=== PATIENT | male | born 1945 | race Two or more races ===

== ENCOUNTER 2017-12-24 11:32 | Inpatient (IN) | payer MEDICAID ==
[~2017-12-24] VITALS: Ht 167.6 cm; Wt 74.2 kg
[~2017-12-24 11:32] MED LIST: AMLO5TAB2; ASPI81CH43; GEMF600T3; HYDR25TA4; IBUP800T41; LISI10TA6; METF100097; OME20GT
[2017-12-24 12:58] LABS: Basophils # (auto) 0.1 uL; Basophils % (auto) 1.1 % (0.0-2.0); Eosinophils # (auto) 0.1 uL; Eosinophils % (auto) 1.7 % (0.0-7.0); Hematocrit 41.6 % (41.0-53.0); Hemoglobin 14.2 g/dL (13.5-17.5); Lymphocytes # (auto) 1.2 uL; Lymphocytes % (auto) 14.7 % (10.0-50.0); Mean Corpuscular Hemoglobin 29.7 pg (28.0-32.0); Mean Corpuscular Hgb Conc. 34.2 g/dL (32.0-36.0); Mean Corpuscular Volume 86.8 fL (80.0-100.0); Monocytes # (auto) 0.5 uL; Monocytes % (auto) 6.8 % (0.0-12.0); Neutrophils % (auto) 75.7 % (37.0-80.0); Nucleated Red Blood Cells % 0.1 %; Platelet Count (auto) 361 10^3/uL (140-450); Red Blood Cells 4.79 10^6/uL (4.5-5.90); Red Cell Distribution Width 13.1 % (11.8-14.3)
[2017-12-24 13:14] LABS: Albumin 4.1 g/dL (3.4-5.0); Calcium 9.7 mg/dL (8.5-10.1); Potassium 3.9 mmol/L (3.5-5.1)
[2017-12-24 13:16] LABS: Bilirubin, Total 0.4 mg/dL (0.2-1.0); Total Protein 8.7 g/dL (6.4-8.2)
[2017-12-24 13:24] LABS: BUN/Creatinine Ratio 28.2
[2017-12-24] MEDS ORDERED: SODIUM CHLORIDE 0.9% 1,000 ML IV ONE (15:16)
[2017-12-24 15:35] LABS: Urine Bacteria NONE SEEN /hpf (None Seen); Urine Blood Negative /uL (Negative); Urine Mucus FEW (None Seen); Urine Specific Gravity 1.025 (1.001-1.035); Urine WBC <1 /hpf (0 - 3)
[2017-12-24 15:48] LABS: INR 0.93 (0.9-1.15); Partial Thromboplastin Time 26.7 sec (22.64-33.71); Prothrombin Time 10.1 sec (9.37-12.3)
[2017-12-24 15:55] LABS: Magnesium 2.5 mg/dL (1.6-2.6)
[2017-12-24] MEDS ORDERED: ACETAMINOPHEN 325 MG TAB PO PRN (17:00)
[2017-12-24] MEDS ORDERED: DOCUSATE SOD 100 MG CAP PO PRN (17:00)
[2017-12-24] MEDS ORDERED: TEMAZEPAM 15 MG CAP PO PRN (17:00)
[2017-12-24] MEDS ORDERED: DEXTROSE (50%) 50ML SYRG IV PRN (17:00)
[2017-12-24] MEDS ORDERED: NITROGLYCERIN 0.4 MG SL TAB SL PRN (17:00)
[2017-12-24] MEDS ORDERED: MORPHINE SULFATE 4 MG/ML SYR/VIAL IV PRN ×2 (17:00)
[2017-12-24] MEDS ORDERED: ONDANSETRON HCL 4 MG/2 ML VIAL IV PRN (17:00)
[2017-12-24] MEDS ORDERED: HYDROcodone-ACET 5/325MG TAB PO PRN (17:00)
[2017-12-24] MEDS: InsuLIN REG 1unit/0.01ml Soln (100units/ml) SC SCH ×2 (17:28→22:30)
[2017-12-24] MEDS: ACCU-CHEK COMFORT CURVE STRIP VI SCH ×2 (17:28→22:30)
[2017-12-24] MEDS: metFORMIN HYDROCHLORIDE 500 MG TAB PO SCH (17:35)
[2017-12-24] MEDS: FAMOTIDINE 20 MG TAB PO SCH (17:35)
[2017-12-24 22:00] VITALS: BP 148/74
[2017-12-24] MEDS: SODIUM CHLOR 0.9% PF (SALINE LOCK) 10ML VIAL IV SCH (22:30)
[2017-12-25 05:00] VITALS: BP 141/76
[2017-12-25] MEDS: ACCU-CHEK COMFORT CURVE STRIP VI SCH ×4 (06:13→21:28)
[2017-12-25] MEDS: SODIUM CHLOR 0.9% PF (SALINE LOCK) 10ML VIAL IV SCH ×3 (06:13→21:29)
[2017-12-25] MEDS: InsuLIN REG 1unit/0.01ml Soln (100units/ml) SC SCH ×4 (06:13→21:28)
[2017-12-25 06:21] LABS: Albumin 3.6 g/dL (3.4-5.0); BUN/Creatinine Ratio 38.2; Bilirubin, Total 0.4 mg/dL (0.2-1.0); Calcium 9.2 mg/dL (8.5-10.1); Potassium 3.2 mmol/L (3.5-5.1); Total Protein 7.9 g/dL (6.4-8.2)
[2017-12-25 07:40] LABS: Basophils # (auto) 0 uL; Basophils % (auto) 0.5 % (0.0-2.0); Eosinophils # (auto) 0.1 uL; Eosinophils % (auto) 0.9 % (0.0-7.0); Hematocrit 39.6 % (41.0-53.0); Hemoglobin 13.5 g/dL (13.5-17.5); Lymphocytes # (auto) 1.4 uL; Lymphocytes % (auto) 13.7 % (10.0-50.0); Mean Corpuscular Hemoglobin 29.4 pg (28.0-32.0); Mean Corpuscular Hgb Conc. 34.2 g/dL (32.0-36.0); Monocytes # (auto) 0.5 uL; Monocytes % (auto) 5.2 % (0.0-12.0); Neutrophils % (auto) 79.7 % (37.0-80.0); Platelet Count (auto) 333 10^3/uL (140-450); Red Cell Distribution Width 13.4 % (11.8-14.3); White Blood Cell 10.1 10^3/uL (4.4-10.8)
[2017-12-25 09:00] VITALS: BP 132/85
[2017-12-25] MEDS ORDERED: IBUPROFEN 800 MG TAB PO PRN (10:00)
[2017-12-25] MEDS: LISINOPRIL 10 MG TAB PO SCH (10:11)
[2017-12-25] MEDS: PANTOPRAZOLE 40 MG TAB PO SCH (10:12)
[2017-12-25] MEDS: metFORMIN HYDROCHLORIDE 500 MG TAB PO SCH ×2 (10:13→17:45)
[2017-12-25] MEDS: MULTIPLE VITAMIN TAB PO SCH (10:13)
[2017-12-25] MEDS: amLODIPine BESYLATE 5 MG TAB PO SCH (10:13)
[2017-12-25] MEDS: ASPirin-EC 81 mg tab PO SCH (10:13)
[2017-12-25] MEDS: GEMFIBROZIL 600 MG TAB PO SCH (10:13)
[2017-12-25] MEDS: HCTZ 25 MG TAB PO SCH (10:14)
[2017-12-25] MEDS: FAMOTIDINE 20 MG TAB PO SCH (10:14)
[2017-12-25] MEDS ORDERED: SITA50TA28 PO (11:42)
[2017-12-25] MEDS ORDERED: GLIP-116 PO (11:54)
[2017-12-25] MEDS ORDERED: LOSA100T27 PO (11:54)
[2017-12-25] MEDS ORDERED: AGG25C PO (11:54)
[2017-12-25 16:34] VITALS: BP 128/69
[2017-12-25 20:00] VITALS: BP 116/71
[2017-12-25] MEDS: INSULIN LANTUS (GLARGINE) 1 /0.01ml (100units/ml) SC SCH (21:29)
[2017-12-25 22:00] VITALS: BP 116/71
[2017-12-26 05:00] VITALS: BP 120/69
[2017-12-26] MEDS: SODIUM CHLOR 0.9% PF (SALINE LOCK) 10ML VIAL IV SCH ×3 (05:40→21:20)
[2017-12-26] MEDS: ACCU-CHEK COMFORT CURVE STRIP VI SCH ×4 (05:40→21:20)
[2017-12-26] MEDS: InsuLIN REG 1unit/0.01ml Soln (100units/ml) SC SCH ×4 (05:48→21:21)
[2017-12-26] MEDS: INSULIN LANTUS (GLARGINE) 1 /0.01ml (100units/ml) SC SCH ×2 (06:22→21:21)
[2017-12-26 08:00] VITALS: BP 112/75
[2017-12-26] MEDS: metFORMIN HYDROCHLORIDE 500 MG TAB PO SCH ×2 (08:22→17:26)
[2017-12-26 09:00] VITALS: BP 112/75
[2017-12-26] MEDS: LISINOPRIL 10 MG TAB PO SCH (09:41)
[2017-12-26] MEDS: PANTOPRAZOLE 40 MG TAB PO SCH (09:41)
[2017-12-26] MEDS: GEMFIBROZIL 600 MG TAB PO SCH (09:41)
[2017-12-26] MEDS: MULTIPLE VITAMIN TAB PO SCH (09:42)
[2017-12-26] MEDS: amLODIPine BESYLATE 5 MG TAB PO SCH (09:42)
[2017-12-26] MEDS: HCTZ 25 MG TAB PO SCH (09:42)
[2017-12-26] MEDS: FAMOTIDINE 20 MG TAB PO SCH (09:43)
[2017-12-26] MEDS: ASPirin-EC 81 mg tab PO SCH (09:43)
[2017-12-26 13:00] VITALS: BP 137/75
[2017-12-26] MEDS ORDERED: INSULIN LANTUS (GLARGINE) 1 /0.01ml (100units/ml) SC ONE (13:30)
[2017-12-26 17:00] VITALS: BP 120/73
[2017-12-26 22:00] VITALS: BP 131/74
[2017-12-27 05:00] VITALS: BP 116/67
[2017-12-27] MEDS: ACCU-CHEK COMFORT CURVE STRIP VI SCH ×4 (06:01→21:31)
[2017-12-27] MEDS: INSULIN LANTUS (GLARGINE) 1 /0.01ml (100units/ml) SC SCH ×2 (06:01→21:40)
[2017-12-27] MEDS: SODIUM CHLOR 0.9% PF (SALINE LOCK) 10ML VIAL IV SCH ×3 (06:01→21:31)
[2017-12-27] MEDS: InsuLIN REG 1unit/0.01ml Soln (100units/ml) SC SCH ×4 (06:02→21:39)
[2017-12-27 06:03] LABS: Basophils # (auto) 0 uL; Basophils % (auto) 0.8 % (0.0-2.0); Eosinophils # (auto) 0.3 uL; Eosinophils % (auto) 5.3 % (0.0-7.0); Hematocrit 37.1 % (41.0-53.0); Hemoglobin 13.2 g/dL (13.5-17.5); Lymphocytes # (auto) 2.1 uL; Lymphocytes % (auto) 32.8 % (10.0-50.0); Mean Corpuscular Hemoglobin 30.4 pg (28.0-32.0); Mean Corpuscular Hgb Conc. 35.5 g/dL (32.0-36.0); Mean Corpuscular Volume 85.7 fL (80.0-100.0); Monocytes # (auto) 0.5 uL; Monocytes % (auto) 8.5 % (0.0-12.0); Neutrophils # (auto) 3.3 uL; Neutrophils % (auto) 52.6 % (37.0-80.0); Nucleated Red Blood Cells % 0.1 %; Platelet Count (auto) 296 10^3/uL (140-450); Red Blood Cells 4.33 10^6/uL (4.5-5.90); White Blood Cell 6.3 10^3/uL (4.4-10.8)
[2017-12-27 06:17] LABS: Albumin 3.3 g/dL (3.4-5.0); BUN/Creatinine Ratio 41.6; Bilirubin, Total 0.5 mg/dL (0.2-1.0); Calcium 8.8 mg/dL (8.5-10.1); Total Protein 7.3 g/dL (6.4-8.2)
[2017-12-27 06:22] LABS: Potassium 2.9 mmol/L (3.5-5.1)
[2017-12-27] MEDS ORDERED: POTASSIUM CHL 20 Meq TABLET PO ONE (06:45)
[2017-12-27] MEDS: metFORMIN HYDROCHLORIDE 500 MG TAB PO SCH ×2 (07:45→18:05)
[2017-12-27 08:14] VITALS: BP 134/77
[2017-12-27] MEDS: MULTIPLE VITAMIN TAB PO SCH (09:43)
[2017-12-27] MEDS: GEMFIBROZIL 600 MG TAB PO SCH (09:43)
[2017-12-27] MEDS: FAMOTIDINE 20 MG TAB PO SCH (09:44)
[2017-12-27] MEDS: PANTOPRAZOLE 40 MG TAB PO SCH (09:44)
[2017-12-27] MEDS: amLODIPine BESYLATE 5 MG TAB PO SCH (09:44)
[2017-12-27] MEDS: LISINOPRIL 10 MG TAB PO SCH (09:47)
[2017-12-27] MEDS: HCTZ 25 MG TAB PO SCH (09:47)
[2017-12-27] MEDS: ASPirin-EC 81 mg tab PO SCH (09:48)
[2017-12-27 12:49] VITALS: BP 123/75
[2017-12-27 16:19] VITALS: BP 137/83
[2017-12-27 21:54] VITALS: BP 126/70
[2017-12-28 04:43] VITALS: BP 125/74
[2017-12-28] MEDS: ACCU-CHEK COMFORT CURVE STRIP VI SCH ×2 (06:12→11:54)
[2017-12-28] MEDS: InsuLIN REG 1unit/0.01ml Soln (100units/ml) SC SCH ×2 (06:12→11:54)
[2017-12-28] MEDS: INSULIN LANTUS (GLARGINE) 1 /0.01ml (100units/ml) SC SCH (06:12)
[2017-12-28] MEDS: SODIUM CHLOR 0.9% PF (SALINE LOCK) 10ML VIAL IV SCH (06:12)
[2017-12-28] MEDS: metFORMIN HYDROCHLORIDE 500 MG TAB PO SCH (08:21)
[2017-12-28 09:00] VITALS: BP 131/74
[2017-12-28] MEDS: GEMFIBROZIL 600 MG TAB PO SCH (09:19)
[2017-12-28] MEDS: ASPirin-EC 81 mg tab PO SCH (09:19)
[2017-12-28] MEDS: FAMOTIDINE 20 MG TAB PO SCH (09:19)
[2017-12-28] MEDS: MULTIPLE VITAMIN TAB PO SCH (09:19)
[2017-12-28] MEDS: PANTOPRAZOLE 40 MG TAB PO SCH (09:19)
[2017-12-28] MEDS: LISINOPRIL 10 MG TAB PO SCH (09:20)
[2017-12-28] MEDS: amLODIPine BESYLATE 5 MG TAB PO SCH (09:20)
[2017-12-28 13:00] VITALS: BP 140/82
[2017-12-28 16:01] VITALS: BP 140/82
== END 2017-12-28 17:15 | disposition home or self-care (01) | DRG 469 ==
LOC: ER 11:32 → TELE 11:33 → TELE-WESTW 18:32
PROVIDERS: ADMIT Internal Medicine; ATTEND Internal Medicine Pulmonary Disease
DX: N17.0 Acute kidney failure with tubular necrosis (principal); E11.21 Type 2 diabetes mellitus with diabetic nephropathy; E11.65 Type 2 diabetes mellitus with hyperglycemia; E44.1 Mild protein-calorie malnutrition; E86.0 Dehydration; E87.8 Other disorders of electrolyte and fluid balance, not elsewhere classified; E87.1 Hypo-osmolality and hyponatremia; N18.3 Chronic kidney disease, stage 3 (moderate); E78.5 Hyperlipidemia, unspecified; E11.22 Type 2 diabetes mellitus with diabetic chronic kidney disease; E87.6 Hypokalemia; I12.9 Hypertensive chronic kidney disease with stage 1 through stage 4 chronic kidney disease, or unspecified chronic kidney disease; Z83.3 Family history of diabetes mellitus; Z86.73 Personal history of transient ischemic attack (TIA), and cerebral infarction without residual deficits; Z68.26 Body mass index [BMI] 26.0-26.9, adult
CPT/HCPCS: 36415; 36600; 71045; 80053; 81001; 82010; 82805; 82962; 83036; 83735; 83880; 84443; 84484; 85025; 85610; 85730; 93005; 93306; 96360; 96372; J1815

== ENCOUNTER 2021-08-08 17:07 | Inpatient (IN) | payer MEDICAID ==
[~2021-08-08] VITALS: Ht 154.9 cm; Wt 67.0 kg
[~2021-08-08 17:07] MED LIST changes: +AGG25C PO; -AMLO5TAB2; -ASPI81CH43; +GEMF-19; -GEMF600T3; +GLIP10TA9 PO; -IBUP800T41; -LISI10TA6; +LOSA-39 PO; -METF100097; -OME20GT; +SITA50TA28 PO
[2021-08-08 18:14] LABS: Basophils # (auto) 0 10 ^3/uL (0-0.2); Basophils % (auto) 0.3 % (0.0-2.0); Eosinophils # (auto) 0.1 10 ^3/uL (0-0.8); Eosinophils % (auto) 0.7 % (0.0-7.0); Hematocrit 44.6 % (41.0-53.0); Hemoglobin 15.4 g/dL (13.5-17.5); Lymphocytes # (auto) 0.8 10 ^3/uL (0.4-5.4); Lymphocytes % (auto) 9.8 % (10.0-50.0); Mean Corpuscular Hemoglobin 29.9 pg (28.0-32.0); Mean Corpuscular Hgb Conc. 34.6 g/dL (32.0-36.0); Mean Corpuscular Volume 86.5 fL (80.0-100.0); Monocytes # (auto) 0.4 10 ^3/uL (0-1.3); Monocytes % (auto) 4.7 % (0.0-12.0); Neutrophils % (auto) 84.5 % (37.0-80.0); Nucleated Red Blood Cells % 0.1 %; Red Blood Cells 5.16 10^6/uL (4.5-5.90); Red Cell Distribution Width 12.7 % (11.8-14.3); White Blood Cell 8.2 10^3/uL (4.4-10.8)
[2021-08-08 18:27] LABS: Albumin 3.6 g/dL (3.4-5.0); Calcium 8.3 mg/dL (8.5-10.1); Potassium 3.7 mmol/L (3.5-5.1)
[2021-08-08 18:33] LABS: BUN/Creatinine Ratio 11.5; Bilirubin, Total 0.3 mg/dL (0.2-1.0)
[2021-08-08] MEDS ORDERED: SODIUM CHLORIDE 0.9% 1,000 ML IV ONE (19:00)
[2021-08-08] MEDS ORDERED: cefTRIAXone 1GM/50ML D5W 50 ML IV ONE (19:30)
[2021-08-08] MEDS ORDERED: AZITHROMYCIN 500MG/ 250ML 250 ML IV ONE (20:45)
[2021-08-09 00:30] LABS: Urine Bacteria NONE SEEN /hpf (None Seen); Urine Blood Negative /uL (Negative); Urine Specific Gravity 1.031 (1.001-1.035); Urine WBC <1 /hpf (0 - 3)
[2021-08-09] MEDS ORDERED: ACETAMINOPHEN 500 MG TAB PO PRN (04:00)
[2021-08-09] MEDS ORDERED: cloNIDine HCL 0.1 MG TAB PO PRN (04:00)
[2021-08-09] MEDS ORDERED: MORPHINE SULFATE INJECTION 2 MG/ML SYRG IV PRN (04:00)
[2021-08-09] MEDS ORDERED: DEXTROSE (50%) 50ML SYRG IV PRN ×2 (04:00→18:15)
[2021-08-09] MEDS ORDERED: TEMAZEPAM 15 MG CAP PO PRN (04:00)
[2021-08-09] MEDS ORDERED: NITROGLYCERIN 0.4 MG SL TAB SL PRN (04:00)
[2021-08-09] MEDS: cefTRIAXone 1GM/50ML D5W 50 ML IV SCH (05:08)
[2021-08-09] MEDS: DexAMETHasone SOD PHOS 10MG/1ML VIAL INJ IV SCH (05:08)
[2021-08-09] MEDS: AZITHROMYCIN 500MG/ 250ML 250 ML IV SCH (05:45)
[2021-08-09] MEDS ORDERED: MECLIZINE HCL 25 MG TAB PO PRN (06:30)
[2021-08-09] MEDS: ACCU-CHEK COMFORT CURVE STRIP VI SCH ×4 (07:08→23:42)
[2021-08-09] MEDS: InsuLIN REG 1unit/0.01ml Soln (100units/ml) SC SCH ×4 (07:10→23:44)
[2021-08-09 09:00] VITALS: BP 139/70
[2021-08-09 09:11] VITALS: BP 152/73
[2021-08-09 09:47] LABS: CRP High Sensitivity 9.53 mg/dL (< 0.3)
[2021-08-09] MEDS ORDERED: HCTZ 25 MG TAB PO SCH (10:00)
[2021-08-09] MEDS: ASCORBIC ACID 1,000 MG TAB PO SCH (10:27)
[2021-08-09] MEDS: LOSARTAN POTASSIUM 50 MG TAB PO SCH (10:27)
[2021-08-09] MEDS: ENOXAPARIN SOD 40 MG/0.4 ML SYRINGE SC SCH ×2 (10:27→21:13)
[2021-08-09] MEDS: GEMFIBROZIL 600 MG TAB PO SCH (10:28)
[2021-08-09] MEDS: CHOLECALCIFEROL (VITD3) 2,000 UNIT CAP/TAB PO SCH (10:29)
[2021-08-09] MEDS: ZINC SULFATE 220mg CAP or TAB PO SCH (10:29)
[2021-08-09] MEDS: PANTOPRAZOLE 40 MG TAB PO SCH (10:29)
[2021-08-09] MEDS ORDERED: LACTULOSE 20Gm/30ML SOLN PO PRN (12:00)
[2021-08-09] MEDS ORDERED: FUROSEMIDE 20 MG/2 ML VIAL IV ONE (13:15)
[2021-08-09 13:22] VITALS: BP 134/69
[2021-08-09] MEDS ORDERED: REMDESIVIR PER PHARMACY 0 ML IV SCH (13:30)
[2021-08-09] MEDS ORDERED: INFLUENZA QUAD 2021-2022 0.5 ML SYRG IM ONE (14:15)
[2021-08-09] MEDS ORDERED: REMDESIVIR 200 MG in NS 210ml LOADING DOSE ADULT IV ONE (15:00)
[2021-08-09 17:03] VITALS: BP 138/71
[2021-08-09] MEDS ORDERED: InsuLIN REG 1unit/0.01ml Soln (100units/ml) IV ONE (18:15)
[2021-08-09] MEDS ORDERED: INSULIN LANTUS (GLARGINE) 1 /0.01ml (100units/ml) SC SCH (22:00)
[2021-08-09 22:04] VITALS: BP 111/82
[2021-08-09] MEDS ORDERED: METF-370 PO (22:23)
[2021-08-09] MEDS ORDERED: LOSA-39 PO (22:23)
[2021-08-09] MEDS: ALBUTEROL SULF HFA 90MCG INH 200DOSE IN PRN (22:52)
[2021-08-10 05:07] VITALS: BP 122/71
[2021-08-10] MEDS: InsuLIN REG 1unit/0.01ml Soln (100units/ml) SC SCH ×4 (06:00→23:35)
[2021-08-10] MEDS: ACCU-CHEK COMFORT CURVE STRIP VI SCH ×4 (06:22→23:34)
[2021-08-10 06:54] LABS: Magnesium 2.3 mg/dL (1.6-2.6); Potassium 3.9 mmol/L (3.5-5.1)
[2021-08-10] MEDS: ALBUTEROL SULF HFA 90MCG INH 200DOSE IN PRN ×2 (07:58→21:02)
[2021-08-10 08:53] LABS: Albumin 2.9 g/dL (3.4-5.0); Calcium 8.8 mg/dL (8.5-10.1); Potassium 3.9 mmol/L (3.5-5.1)
[2021-08-10 08:56] LABS: BUN/Creatinine Ratio 25.7; Bilirubin, Total 0.2 mg/dL (0.2-1.0); Total Protein 7.4 g/dL (6.4-8.2)
[2021-08-10 09:00] VITALS: BP 129/71
[2021-08-10] MEDS: DexAMETHasone SOD PHOS 10MG/1ML VIAL INJ IV SCH (09:58)
[2021-08-10] MEDS: FUROSEMIDE 20 MG/2 ML VIAL IV SCH (09:58)
[2021-08-10] MEDS: ASCORBIC ACID 1,000 MG TAB PO SCH (09:59)
[2021-08-10] MEDS: LOSARTAN POTASSIUM 50 MG TAB PO SCH (09:59)
[2021-08-10] MEDS: CHOLECALCIFEROL (VITD3) 2,000 UNIT CAP/TAB PO SCH (09:59)
[2021-08-10] MEDS: PANTOPRAZOLE 40 MG TAB PO SCH (09:59)
[2021-08-10] MEDS: GEMFIBROZIL 600 MG TAB PO SCH (09:59)
[2021-08-10] MEDS: ZINC SULFATE 220mg CAP or TAB PO SCH (09:59)
[2021-08-10] MEDS: ENOXAPARIN SOD 40 MG/0.4 ML SYRINGE SC SCH ×2 (10:00→21:53)
[2021-08-10] MEDS: cefTRIAXone 1GM/50ML D5W 50 ML IV SCH (10:13)
[2021-08-10] MEDS ORDERED: SIMV10TA84 PO (11:09)
[2021-08-10] MEDS ORDERED: GLIP10TA9 PO (11:09)
[2021-08-10] MEDS ORDERED: INSLANTI SC (11:09)
[2021-08-10] MEDS ORDERED: ASPI1CAP3 PO (11:09)
[2021-08-10] MEDS ORDERED: AMLO-489 PO (11:09)
[2021-08-10] MEDS ORDERED: SITA50TA28 PO (11:09)
[2021-08-10] MEDS ORDERED: LOSA-39 PO (11:09)
[2021-08-10] MEDS: AZITHROMYCIN 500MG/ 250ML 250 ML IV SCH (11:28)
[2021-08-10 13:00] VITALS: BP 129/86
[2021-08-10] MEDS: REMDESIVIR 100mg 100 MG in SODIUM CHL 0.9% 230 ML IV SCH (15:04)
[2021-08-10 17:00] VITALS: BP 126/69
[2021-08-10 22:00] VITALS: BP 152/72
[2021-08-10] MEDS ORDERED: INSULIN LANTUS (GLARGINE) 1 /0.01ml (100units/ml) SC SCH (22:00)
[2021-08-11 05:00] VITALS: BP 150/82
[2021-08-11] MEDS: ACCU-CHEK COMFORT CURVE STRIP VI SCH ×4 (05:34→23:42)
[2021-08-11] MEDS: InsuLIN REG 1unit/0.01ml Soln (100units/ml) SC SCH ×4 (05:41→23:42)
[2021-08-11 06:25] LABS: Albumin 2.8 g/dL (3.4-5.0); BUN/Creatinine Ratio 31.1; Calcium 8.4 mg/dL (8.5-10.1); Potassium 3.4 mmol/L (3.5-5.1)
[2021-08-11 06:28] LABS: Bilirubin, Total 0.2 mg/dL (0.2-1.0); Total Protein 6.8 g/dL (6.4-8.2)
[2021-08-11] MEDS: ALBUTEROL SULF HFA 90MCG INH 200DOSE IN PRN (07:22)
[2021-08-11 08:48] VITALS: BP 150/82
[2021-08-11] MEDS: cefTRIAXone 1GM/50ML D5W 50 ML IV SCH (08:52)
[2021-08-11] MEDS: DexAMETHasone SOD PHOS 10MG/1ML VIAL INJ IV SCH (08:52)
[2021-08-11] MEDS: FUROSEMIDE 20 MG/2 ML VIAL IV SCH (08:53)
[2021-08-11] MEDS: ZINC SULFATE 220mg CAP or TAB PO SCH (08:53)
[2021-08-11] MEDS: LOSARTAN POTASSIUM 50 MG TAB PO SCH (08:54)
[2021-08-11] MEDS: GEMFIBROZIL 600 MG TAB PO SCH (08:54)
[2021-08-11] MEDS: POTASSIUM CHL 10 Meq TABLET PO SCH (08:54)
[2021-08-11] MEDS: ENOXAPARIN SOD 40 MG/0.4 ML SYRINGE SC SCH ×2 (08:55→21:48)
[2021-08-11] MEDS: ASCORBIC ACID 1,000 MG TAB PO SCH (08:55)
[2021-08-11] MEDS: CHOLECALCIFEROL (VITD3) 2,000 UNIT CAP/TAB PO SCH (08:55)
[2021-08-11] MEDS: AZITHROMYCIN 500MG/ 250ML 250 ML IV SCH (09:45)
[2021-08-11 12:54] VITALS: BP 144/72
[2021-08-11] MEDS: REMDESIVIR 100mg 100 MG in SODIUM CHL 0.9% 230 ML IV SCH (14:04)
[2021-08-11 17:00] VITALS: BP 139/70
[2021-08-11] MEDS: INSULIN LANTUS (GLARGINE) 1 /0.01ml (100units/ml) SC SCH (21:50)
[2021-08-11 22:11] VITALS: BP 154/69
[2021-08-12 05:00] VITALS: BP 152/81
[2021-08-12] MEDS: ACCU-CHEK COMFORT CURVE STRIP VI SCH ×2 (05:46→11:50)
[2021-08-12] MEDS: InsuLIN REG 1unit/0.01ml Soln (100units/ml) SC SCH ×2 (05:47→11:52)
[2021-08-12 06:04] LABS: Basophils # (auto) 0.1 10 ^3/uL (0-0.2); Basophils % (auto) 0.9 % (0.0-2.0); Eosinophils # (auto) 0 10 ^3/uL (0-0.8); Eosinophils % (auto) 0.1 % (0.0-7.0); Hemoglobin 13.2 g/dL (13.5-17.5); Lymphocytes # (auto) 2.2 10 ^3/uL (0.4-5.4); Lymphocytes % (auto) 38.9 % (10.0-50.0); Mean Corpuscular Hemoglobin 29.8 pg (28.0-32.0); Mean Corpuscular Hgb Conc. 34.7 g/dL (32.0-36.0); Monocytes # (auto) 0.4 10 ^3/uL (0-1.3); Monocytes % (auto) 6.3 % (0.0-12.0); Neutrophils % (auto) 53.8 % (37.0-80.0); Nucleated Red Blood Cells % 0.1 %; Red Blood Cells 4.42 10^6/uL (4.5-5.90); Red Cell Distribution Width 12.5 % (11.8-14.3); White Blood Cell 5.6 10^3/uL (4.4-10.8)
[2021-08-12 06:30] LABS: Potassium 3.5 mmol/L (3.5-5.1)
[2021-08-12 06:52] LABS: BUN/Creatinine Ratio 31.6; CRP High Sensitivity 1.45 mg/dL (< 0.3); Calcium 8.3 mg/dL (8.5-10.1)
[2021-08-12 09:00] VITALS: BP 134/82
[2021-08-12] MEDS: ALBUTEROL SULF HFA 90MCG INH 200DOSE IN PRN (10:57)
[2021-08-12] MEDS: cefTRIAXone 1GM/50ML D5W 50 ML IV SCH (11:27)
[2021-08-12] MEDS: CHOLECALCIFEROL (VITD3) 2,000 UNIT CAP/TAB PO SCH (11:27)
[2021-08-12] MEDS: LOSARTAN POTASSIUM 50 MG TAB PO SCH (11:28)
[2021-08-12] MEDS: ASCORBIC ACID 1,000 MG TAB PO SCH (11:28)
[2021-08-12] MEDS: ZINC SULFATE 220mg CAP or TAB PO SCH (11:29)
[2021-08-12] MEDS: GEMFIBROZIL 600 MG TAB PO SCH (11:29)
[2021-08-12] MEDS: POTASSIUM CHL 10 Meq TABLET PO SCH (11:30)
[2021-08-12] MEDS: ENOXAPARIN SOD 40 MG/0.4 ML SYRINGE SC SCH (11:33)
[2021-08-12] MEDS: DexAMETHasone SOD PHOS 10MG/1ML VIAL INJ IV SCH (11:35)
[2021-08-12] MEDS: FUROSEMIDE 20 MG/2 ML VIAL IV SCH (11:35)
[2021-08-12] MEDS: INSULIN LANTUS (GLARGINE) 1 /0.01ml (100units/ml) SC SCH (11:49)
[2021-08-12] MEDS: AZITHROMYCIN 500MG/ 250ML 250 ML IV SCH (12:26)
[2021-08-12 12:58] VITALS: BP 150/74
[2021-08-12] MEDS: REMDESIVIR 100mg 100 MG in SODIUM CHL 0.9% 230 ML IV SCH (14:21)
[2021-08-12 17:00] VITALS: BP 148/89
== END 2021-08-12 17:20 | disposition home or self-care (01) | DRG 137 ==
LOC: ER 17:07 → TELE 08-09 03:54 → TELE-EAST 08-09 06:51
PROVIDERS: ADMIT Nurse Practitioner; ATTEND Internal Medicine
PROC: XW033E5 Introduction of Remdesivir Anti-infective into Peripheral Vein, Percutaneous Approach, New Technology Group 5 (ICD-10-PCS; principal; 2021-08-09)
DX: U07.1 COVID-19 (principal); J12.82 Pneumonia due to coronavirus disease 2019; D89.839 Cytokine release syndrome, grade unspecified; E11.9 Type 2 diabetes mellitus without complications; I10 Essential (primary) hypertension; E55.9 Vitamin D deficiency, unspecified; K21.9 Gastro-esophageal reflux disease without esophagitis; E78.5 Hyperlipidemia, unspecified; Z79.82 Long term (current) use of aspirin; Z83.3 Family history of diabetes mellitus; Z86.73 Personal history of transient ischemic attack (TIA), and cerebral infarction without residual deficits; Z28.21 Immunization not carried out because of patient refusal
CPT/HCPCS: 36415; 71045; 80048; 80053; 80061; 81001; 82306; 82728; 82962; 83036; 83735; 83880; 84132; 84484; 85025; 85379; 86141; 87426; 93005; 94640; 96365; 96367; 96375; 97116; 97530; G0378; J0696; J1100; J1815

== ENCOUNTER 2021-12-08 10:24 | Inpatient (IN) | payer MEDICAID ==
[~2021-12-08] VITALS: Ht 157.5 cm; Wt 69.5 kg
[~2021-12-08 10:24] MED LIST changes: -AGG25C PO; +AMLO-489 PO; +ASPI1CAP3 PO; -GEMF-19; -HYDR25TA4; +INSLANTI SC; +SIMV10TA84 PO
[2021-12-08] MEDS ORDERED: SODIUM CHLORIDE 0.9% 1,000 ML IV ONE (12:00)
[2021-12-08] MEDS ORDERED: PIPERACILLIN-TAZOB 3.375GM 100 ML IV ONE (12:00)
[2021-12-08 13:23] LABS: Basophils # (auto) 0.1 10 ^3/uL (0-0.2); Basophils % (auto) 1.2 % (0.0-2.0); Eosinophils # (auto) 0.2 10 ^3/uL (0-0.8); Eosinophils % (auto) 2.1 % (0.0-7.0); Hematocrit 40.2 % (41.0-53.0); Hemoglobin 13.9 g/dL (13.5-17.5); Lymphocytes # (auto) 1.4 10 ^3/uL (0.4-5.4); Lymphocytes % (auto) 14.6 % (10.0-50.0); Mean Corpuscular Hemoglobin 29.3 pg (28.0-32.0); Mean Corpuscular Hgb Conc. 34.7 g/dL (32.0-36.0); Mean Corpuscular Volume 84.4 fL (80.0-100.0); Monocytes # (auto) 0.5 10 ^3/uL (0-1.3); Monocytes % (auto) 5.4 % (0.0-12.0); Neutrophils # (auto) 7.3 10 ^3/uL (1.6-8.6); Neutrophils % (auto) 76.7 % (37.0-80.0); Red Blood Cells 4.76 10^6/uL (4.5-5.90); Red Cell Distribution Width 13.5 % (11.8-14.3); White Blood Cell 9.5 10^3/uL (4.4-10.8)
[2021-12-08 13:37] LABS: Partial Thromboplastin Time 28.9 sec (23.6-33.0)
[2021-12-08 13:39] LABS: Albumin 3.8 g/dL (3.4-5.0); Calcium 9.1 mg/dL (8.5-10.1); Potassium 4.2 mmol/L (3.5-5.1)
[2021-12-08 13:48] LABS: Bilirubin, Total 0.3 mg/dL (0.2-1.0); Total Protein 7.4 g/dL (6.4-8.2)
[2021-12-08 14:18] LABS: BUN/Creatinine Ratio 22.1
[2021-12-08 15:23] LABS: Urine Bacteria NONE SEEN /hpf (None Seen); Urine Blood Negative /uL (Negative); Urine WBC 1 /hpf (0 - 3)
[2021-12-08] MEDS ORDERED: SODIUM CHLORIDE 0.9% 1,000 ML IV SCH (17:45)
[2021-12-08] MEDS ORDERED: ACETAMINOPHEN 325 MG TAB PO PRN (17:45)
[2021-12-08] MEDS ORDERED: MORPHINE SULFATE INJECTION 2 MG/ML SYRG IV PRN (17:45)
[2021-12-08] MEDS ORDERED: NITROGLYCERIN 0.4 MG SL TAB SL PRN (17:45)
[2021-12-08] MEDS ORDERED: VANCOMYCIN PER PHARMACY 0 MG IV SCH (18:00)
[2021-12-08] MEDS ORDERED: VANCOMYCIN 1GM/250ML 250 ML IV SCH (19:00)
[2021-12-08 20:26] VITALS: BP 148/72
[2021-12-08] MEDS: PIPERACILLIN-TAZOB 3.375GM 100 ML IV SCH (22:24)
[2021-12-08] MEDS ORDERED: DEXTROSE (50%) 50ML SYRG IV PRN (22:45)
[2021-12-09] MEDS: HYDROcodone-ACET 5/325MG TAB PO PRN (01:13)
[2021-12-09] MEDS: MORPHINE SULFATE 4 MG/ML SYR/VIAL IV PRN (04:50)
[2021-12-09 05:09] VITALS: BP 146/88
[2021-12-09 05:43] LABS: Basophils # (auto) 0 10 ^3/uL (0-0.2); Basophils % (auto) 0.4 % (0.0-2.0); Eosinophils # (auto) 0.2 10 ^3/uL (0-0.8); Eosinophils % (auto) 2.8 % (0.0-7.0); Hematocrit 38.8 % (41.0-53.0); Hemoglobin 13.1 g/dL (13.5-17.5); Lymphocytes # (auto) 1.7 10 ^3/uL (0.4-5.4); Lymphocytes % (auto) 21.6 % (10.0-50.0); Mean Corpuscular Hemoglobin 28.6 pg (28.0-32.0); Mean Corpuscular Hgb Conc. 33.7 g/dL (32.0-36.0); Mean Corpuscular Volume 84.8 fL (80.0-100.0); Monocytes # (auto) 0.6 10 ^3/uL (0-1.3); Monocytes % (auto) 7.2 % (0.0-12.0); Neutrophils # (auto) 5.3 10 ^3/uL (1.6-8.6); Nucleated Red Blood Cells % 0.2 %; Red Blood Cells 4.58 10^6/uL (4.5-5.90); Red Cell Distribution Width 13.6 % (11.8-14.3); White Blood Cell 7.8 10^3/uL (4.4-10.8)
[2021-12-09] MEDS: PIPERACILLIN-TAZOB 3.375GM 100 ML IV SCH (05:51)
[2021-12-09 06:06] LABS: Albumin 3.2 g/dL (3.4-5.0); BUN/Creatinine Ratio 20.3; Calcium 8.4 mg/dL (8.5-10.1); Potassium 3.5 mmol/L (3.5-5.1)
[2021-12-09 06:08] LABS: Bilirubin, Total 0.3 mg/dL (0.2-1.0); Total Protein 6.5 g/dL (6.4-8.2)
[2021-12-09] MEDS: InsuLIN REG 1unit/0.01ml Soln (100units/ml) SC SCH ×4 (06:22→22:09)
[2021-12-09] MEDS: ACCU-CHEK COMFORT CURVE STRIP VI SCH ×4 (06:22→22:09)
[2021-12-09] MEDS ORDERED: INSULIN LANTUS (GLARGINE) 1 /0.01ml (100units/ml) SC SCH (07:00)
[2021-12-09 09:00] VITALS: BP 165/65
[2021-12-09] MEDS: LOSARTAN POTASSIUM 50 MG TAB PO SCH (10:28)
[2021-12-09] MEDS: amLODIPine BESYLATE 5 MG TAB PO SCH (10:28)
[2021-12-09] MEDS: ENOXAPARIN SOD 40 MG/0.4 ML SYRINGE SC SCH (10:29)
[2021-12-09 13:00] VITALS: BP 192/80
[2021-12-09] MEDS ORDERED: CARVEDILOL 12.5 MG TAB PO ONE (16:15)
[2021-12-09 17:00] VITALS: BP 165/77
[2021-12-09] MEDS ORDERED: LIDOCAINE 1% (LOCAL ANESTH.) PF 5ml SDV ID ONE (18:15)
[2021-12-09 22:00] VITALS: BP 142/69
[2021-12-09] MEDS: CLINDAMYCIN 600MG IV 50 ML IV SCH (22:07)
[2021-12-09] MEDS: SODIUM CHLOR 0.9% PF (SALINE LOCK) 10ML VIAL/SYR IV SCH (22:07)
[2021-12-09] MEDS: CARVEDILOL 12.5 MG TAB PO SCH (22:08)
[2021-12-09] MEDS: ASPIRIN-DIPYRIDAMOLE (25/200MG) CAPSULE PO SCH (22:08)
[2021-12-09] MEDS: ATORVASTATIN 20 MG TAB PO SCH (22:09)
[2021-12-10 05:00] VITALS: BP 151/80
[2021-12-10] MEDS: CLINDAMYCIN 600MG IV 50 ML IV SCH ×3 (05:47→21:37)
[2021-12-10] MEDS: ACCU-CHEK COMFORT CURVE STRIP VI SCH ×4 (06:41→21:03)
[2021-12-10] MEDS: InsuLIN REG 1unit/0.01ml Soln (100units/ml) SC SCH ×4 (06:43→21:02)
[2021-12-10] MEDS: INSULIN LANTUS (GLARGINE) 1 /0.01ml (100units/ml) SC SCH (06:43)
[2021-12-10] MEDS: cefTRIAXone 1GM/50ML D5W 50 ML IV SCH ×2 (09:00→10:12)
[2021-12-10 09:16] VITALS: BP 165/85
[2021-12-10] MEDS: SODIUM CHLOR 0.9% PF (SALINE LOCK) 10ML VIAL/SYR IV SCH ×2 (09:52→21:38)
[2021-12-10] MEDS: CARVEDILOL 12.5 MG TAB PO SCH ×2 (10:13→21:38)
[2021-12-10] MEDS: amLODIPine BESYLATE 5 MG TAB PO SCH (10:14)
[2021-12-10] MEDS: ENOXAPARIN SOD 40 MG/0.4 ML SYRINGE SC SCH (10:14)
[2021-12-10] MEDS: LOSARTAN POTASSIUM 50 MG TAB PO SCH (10:14)
[2021-12-10] MEDS: ASPIRIN-DIPYRIDAMOLE (25/200MG) CAPSULE PO SCH ×2 (10:20→21:38)
[2021-12-10 13:00] VITALS: BP 158/67
[2021-12-10 17:25] VITALS: BP 143/73
[2021-12-10] MEDS: ATORVASTATIN 20 MG TAB PO SCH (21:39)
[2021-12-10 22:00] VITALS: BP 141/76
[2021-12-11] MEDS: HYDROcodone-ACET 5/325MG TAB PO PRN (00:16)
[2021-12-11 05:00] VITALS: BP 141/77
[2021-12-11] MEDS: ACCU-CHEK COMFORT CURVE STRIP VI SCH ×4 (06:04→21:51)
[2021-12-11] MEDS: INSULIN LANTUS (GLARGINE) 1 /0.01ml (100units/ml) SC SCH (06:05)
[2021-12-11] MEDS: InsuLIN REG 1unit/0.01ml Soln (100units/ml) SC SCH ×4 (06:05→21:57)
[2021-12-11] MEDS: CLINDAMYCIN 600MG IV 50 ML IV SCH ×3 (06:15→21:50)
[2021-12-11 09:06] VITALS: BP 131/72
[2021-12-11] MEDS: amLODIPine BESYLATE 5 MG TAB PO SCH (09:53)
[2021-12-11] MEDS: CARVEDILOL 12.5 MG TAB PO SCH ×2 (09:54→21:51)
[2021-12-11] MEDS: LOSARTAN POTASSIUM 50 MG TAB PO SCH (09:55)
[2021-12-11] MEDS: ENOXAPARIN SOD 40 MG/0.4 ML SYRINGE SC SCH (09:55)
[2021-12-11] MEDS: ASPIRIN-DIPYRIDAMOLE (25/200MG) CAPSULE PO SCH ×2 (09:56→21:51)
[2021-12-11] MEDS: SODIUM CHLOR 0.9% PF (SALINE LOCK) 10ML VIAL/SYR IV SCH ×2 (09:57→21:50)
[2021-12-11 12:48] VITALS: BP 145/74
[2021-12-11 17:00] VITALS: BP 147/78
[2021-12-11 21:47] VITALS: BP 145/71
[2021-12-11] MEDS: ATORVASTATIN 20 MG TAB PO SCH (21:51)
[2021-12-12 04:46] VITALS: BP 140/72
[2021-12-12] MEDS: CLINDAMYCIN 600MG IV 50 ML IV SCH ×3 (05:18→21:20)
[2021-12-12] MEDS: InsuLIN REG 1unit/0.01ml Soln (100units/ml) SC SCH ×4 (06:01→21:35)
[2021-12-12] MEDS: INSULIN LANTUS (GLARGINE) 1 /0.01ml (100units/ml) SC SCH (06:02)
[2021-12-12] MEDS: ACCU-CHEK COMFORT CURVE STRIP VI SCH ×4 (06:03→21:21)
[2021-12-12] MEDS ORDERED: LIDOCAINE 2%HCL (LOCAL ANESTH.) INJ 20ML MDV ONE (07:57)
[2021-12-12] MEDS ORDERED: IODIXANOL 320MG/ML 100ML BTL IV ONE (07:57)
[2021-12-12] MEDS ORDERED: MIDAZOLAM HCL 2MG/2ML 2ml VIAL (1mg/ml) ONE (08:14)
[2021-12-12] MEDS ORDERED: ANGIOMAX 250 MG VIAL IV ONE (08:14)
[2021-12-12] MEDS ORDERED: SODIUM CHL 0.9% 0 ML ONE (08:14)
[2021-12-12] MEDS ORDERED: fentaNYL CITRATE 100 MCG/2 ML VL ONE (08:14)
[2021-12-12] MEDS: cefTRIAXone 1GM/50ML D5W 50 ML IV SCH ×2 (09:00→10:36)
[2021-12-12] MEDS: LOSARTAN POTASSIUM 50 MG TAB PO SCH (10:00)
[2021-12-12] MEDS: SODIUM CHLOR 0.9% PF (SALINE LOCK) 10ML VIAL/SYR IV SCH ×2 (10:00→21:20)
[2021-12-12] MEDS: ASPIRIN-DIPYRIDAMOLE (25/200MG) CAPSULE PO SCH ×2 (10:00→21:21)
[2021-12-12] MEDS: ENOXAPARIN SOD 40 MG/0.4 ML SYRINGE SC SCH (10:00)
[2021-12-12] MEDS: amLODIPine BESYLATE 5 MG TAB PO SCH (10:00)
[2021-12-12] MEDS: CARVEDILOL 12.5 MG TAB PO SCH ×2 (10:00→21:21)
[2021-12-12 13:00] VITALS: BP 127/70
[2021-12-12 17:19] VITALS: BP 147/73
[2021-12-12] MEDS: ATORVASTATIN 20 MG TAB PO SCH (21:21)
[2021-12-12 22:00] VITALS: BP_SYST 144; BP_SYST 146; BP_DIAS 76; BP_DIAS 77
[2021-12-12] MEDS: HYDROcodone-ACET 5/325MG TAB PO PRN (22:07)
[2021-12-12] MEDS: MORPHINE SULFATE 4 MG/ML SYR/VIAL IV PRN (22:58)
[2021-12-13 05:00] VITALS: BP 136/77
[2021-12-13] MEDS: CLINDAMYCIN 600MG IV 50 ML IV SCH ×3 (05:47→22:10)
[2021-12-13] MEDS: ACCU-CHEK COMFORT CURVE STRIP VI SCH ×4 (06:10→22:12)
[2021-12-13] MEDS: INSULIN LANTUS (GLARGINE) 1 /0.01ml (100units/ml) SC SCH (06:12)
[2021-12-13] MEDS: InsuLIN REG 1unit/0.01ml Soln (100units/ml) SC SCH ×3 (06:12→22:12)
[2021-12-13 08:00] VITALS: BP 165/78
[2021-12-13 09:00] VITALS: BP 165/78
[2021-12-13] MEDS: SODIUM CHLOR 0.9% PF (SALINE LOCK) 10ML VIAL/SYR IV SCH ×2 (10:20→22:10)
[2021-12-13] MEDS: CARVEDILOL 12.5 MG TAB PO SCH ×2 (10:20→22:09)
[2021-12-13] MEDS: ASPIRIN-DIPYRIDAMOLE (25/200MG) CAPSULE PO SCH (10:20)
[2021-12-13] MEDS: amLODIPine BESYLATE 5 MG TAB PO SCH (10:21)
[2021-12-13] MEDS: ENOXAPARIN SOD 40 MG/0.4 ML SYRINGE SC SCH (10:21)
[2021-12-13] MEDS: LOSARTAN POTASSIUM 50 MG TAB PO SCH (10:21)
[2021-12-13] MEDS: MORPHINE SULFATE 4 MG/ML SYR/VIAL IV PRN (10:22)
[2021-12-13 20:00] VITALS: BP 148/78
[2021-12-13 22:00] VITALS: BP 157/73
[2021-12-13] MEDS: ATORVASTATIN 20 MG TAB PO SCH (22:11)
[2021-12-13] MEDS: HYDROcodone-ACET 5/325MG TAB PO PRN (23:47)
[2021-12-14] MEDS: HYDROcodone-ACET 5/325MG TAB PO PRN (02:23)
[2021-12-14 05:00] VITALS: BP 136/71
[2021-12-14] MEDS: InsuLIN REG 1unit/0.01ml Soln (100units/ml) SC SCH ×5 (06:25→22:46)
[2021-12-14] MEDS: INSULIN LANTUS (GLARGINE) 1 /0.01ml (100units/ml) SC SCH (06:26)
[2021-12-14] MEDS: CLINDAMYCIN 600MG IV 50 ML IV SCH ×2 (06:27→14:00)
[2021-12-14 06:28] LABS: Basophils # (auto) 0.1 10 ^3/uL (0-0.2); Basophils % (auto) 0.9 % (0.0-2.0); Eosinophils # (auto) 0.2 10 ^3/uL (0-0.8); Eosinophils % (auto) 2.7 % (0.0-7.0); Hematocrit 36.7 % (41.0-53.0); Hemoglobin 12.9 g/dL (13.5-17.5); Lymphocytes # (auto) 2.1 10 ^3/uL (0.4-5.4); Mean Corpuscular Hemoglobin 29.5 pg (28.0-32.0); Mean Corpuscular Hgb Conc. 35.2 g/dL (32.0-36.0); Mean Corpuscular Volume 83.8 fL (80.0-100.0); Monocytes # (auto) 0.5 10 ^3/uL (0-1.3); Monocytes % (auto) 6.6 % (0.0-12.0); Neutrophils # (auto) 4.6 10 ^3/uL (1.6-8.6); Neutrophils % (auto) 61.8 % (37.0-80.0); Nucleated Red Blood Cells % 0.6 %; Red Blood Cells 4.38 10^6/uL (4.5-5.90); Red Cell Distribution Width 13.2 % (11.8-14.3); White Blood Cell 7.4 10^3/uL (4.4-10.8)
[2021-12-14] MEDS: ACCU-CHEK COMFORT CURVE STRIP VI SCH ×4 (06:33→22:46)
[2021-12-14 06:39] LABS: BUN/Creatinine Ratio 24.4; Calcium 8.9 mg/dL (8.5-10.1); Potassium 3.9 mmol/L (3.5-5.1)
[2021-12-14] MEDS: ENOXAPARIN SOD 40 MG/0.4 ML SYRINGE SC SCH (07:16)
[2021-12-14 08:00] VITALS: BP 145/89
[2021-12-14] MEDS ORDERED: ROPIVACAINE 0.5% (5MG/ML) 20ML AMPULE IJ ONE (08:25)
[2021-12-14] MEDS ORDERED: ceFAZolin 1GM VL ONE (08:44)
[2021-12-14] MEDS: cefTRIAXone 1GM/50ML D5W 50 ML IV SCH (09:00)
[2021-12-14] MEDS ORDERED: MEPERIDINE HCL (25 MG/ML) 1ML VIAL ONE (09:01)
[2021-12-14] MEDS ORDERED: fentaNYL CITRATE 100 MCG/2 ML VL ONE (09:02)
[2021-12-14] MEDS ORDERED: MIDAZOLAM HCL 2MG/2ML 2ml VIAL (1mg/ml) ONE (09:02)
[2021-12-14] MEDS ORDERED: DexAMETHasone SOD PHOS 10MG/1ML VIAL INJ ONE (09:06)
[2021-12-14] MEDS ORDERED: PROPOFOL 10 MG/ML 20 ML IV ONE (09:06)
[2021-12-14] MEDS: SODIUM CHLOR 0.9% PF (SALINE LOCK) 10ML VIAL/SYR IV SCH ×2 (10:00→22:46)
[2021-12-14] MEDS: LOSARTAN POTASSIUM 50 MG TAB PO SCH (10:00)
[2021-12-14] MEDS: amLODIPine BESYLATE 5 MG TAB PO SCH (10:00)
[2021-12-14] MEDS: CARVEDILOL 12.5 MG TAB PO SCH ×2 (10:00→22:40)
[2021-12-14 13:00] VITALS: BP 142/82
[2021-12-14] MEDS ORDERED: levoFLOXacin 250 MG TAB PO ONE (16:15)
[2021-12-14 17:00] VITALS: BP 140/68
[2021-12-14 20:00] VITALS: BP 144/75
[2021-12-14 22:00] VITALS: BP 144/66
[2021-12-14] MEDS: ATORVASTATIN 20 MG TAB PO SCH (22:41)
[2021-12-15 05:16] VITALS: BP 137/72
[2021-12-15] MEDS: ACCU-CHEK COMFORT CURVE STRIP VI SCH (06:49)
[2021-12-15] MEDS: INSULIN LANTUS (GLARGINE) 1 /0.01ml (100units/ml) SC SCH (06:57)
[2021-12-15] MEDS: InsuLIN REG 1unit/0.01ml Soln (100units/ml) SC SCH (06:58)
[2021-12-15 09:00] VITALS: BP 156/83
[2021-12-15] MEDS ORDERED: LEVO750T64 PO (09:25)
[2021-12-15] MEDS: LOSARTAN POTASSIUM 50 MG TAB PO SCH (09:34)
[2021-12-15] MEDS: SODIUM CHLOR 0.9% PF (SALINE LOCK) 10ML VIAL/SYR IV SCH (09:34)
[2021-12-15] MEDS: ENOXAPARIN SOD 40 MG/0.4 ML SYRINGE SC SCH (09:35)
[2021-12-15] MEDS: amLODIPine BESYLATE 5 MG TAB PO SCH (09:35)
[2021-12-15] MEDS ORDERED: levoFLOXacin 250 MG TAB PO SCH (10:00)
[2021-12-15] MEDS ORDERED: CARVEDILOL 3.125 MG TAB PO SCH (10:00)
[2021-12-15] MEDS ORDERED: CARVEDILOL 12.5 MG TAB PO SCH (10:00)
[2021-12-15 10:24] VITALS: BP 156/83
== END 2021-12-15 11:47 | disposition home or self-care (01) | DRG 314 ==
LOC: ER 10:24 → TELE 17:45 → TELE-WESTW 20:25 → WEST WING 12-15 09:22
PROVIDERS: ADMIT Internal Medicine; ATTEND Internal Medicine
PROC: 02HV33Z Insertion of Infusion Device into Superior Vena Cava, Percutaneous Approach (ICD-10-PCS; 2021-12-09)
PROC: B548ZZA Ultrasonography of Superior Vena Cava, Guidance (ICD-10-PCS; 2021-12-09)
PROC: B41GYZZ Fluoroscopy of Left Lower Extremity Arteries using Other Contrast (ICD-10-PCS; 2021-12-12)
PROC: B41CYZZ Fluoroscopy of Pelvic Arteries using Other Contrast (ICD-10-PCS; 2021-12-12)
PROC: B41FYZZ Fluoroscopy of Right Lower Extremity Arteries using Other Contrast (ICD-10-PCS; 2021-12-12)
PROC: 0Y6W0Z0 Detachment at Left 4th Toe, Complete, Open Approach (ICD-10-PCS; principal; 2021-12-14 08:55)
DX: E11.621 Type 2 diabetes mellitus with foot ulcer (principal); E11.52 Type 2 diabetes mellitus with diabetic peripheral angiopathy with gangrene; E88.09 Other disorders of plasma-protein metabolism, not elsewhere classified; L97.529 Non-pressure chronic ulcer of other part of left foot with unspecified severity; E11.65 Type 2 diabetes mellitus with hyperglycemia; L03.032 Cellulitis of left toe; M86.8X7 Other osteomyelitis, ankle and foot; E78.5 Hyperlipidemia, unspecified; K21.9 Gastro-esophageal reflux disease without esophagitis; Z20.822 Contact with and (suspected) exposure to COVID-19; I10 Essential (primary) hypertension; E11.69 Type 2 diabetes mellitus with other specified complication; Z80.42 Family history of malignant neoplasm of prostate; Z82.49 Family history of ischemic heart disease and other diseases of the circulatory system; Z83.3 Family history of diabetes mellitus; Z86.73 Personal history of transient ischemic attack (TIA), and cerebral infarction without residual deficits
CPT/HCPCS: 36415; 36569; 71045; 73700; 73718; 80048; 80053; 81001; 82962; 83036; 83605; 84484; 85025; 85610; 85730; 86850; 86900; 86901; 87040; 87070; 87075; 87077; 87186; 87205; 87426; 93306; 93926; 96361; 96365; 99152; G0378; J0690; J0696; J1100; J1815; J2250; J2543; J2704; J3490; Q9967

== ENCOUNTER 2022-02-16 07:17 | Inpatient (IN) | payer MEDICAID ==
[~2022-02-16] VITALS: Ht 149.9 cm; Wt 71.3 kg
[~2022-02-16 07:17] MED LIST changes: +LEVO750T64 PO
[2022-02-16] MEDS ORDERED: VANCOMYCIN 1GM/250ML 250 ML IV ONE (08:00)
[2022-02-16] MEDS ORDERED: SODIUM CHLORIDE 0.9% 1,000 ML IV ONE (08:00)
[2022-02-16 08:56] LABS: Basophils # (auto) 0 10 ^3/uL (0-0.2); Basophils % (auto) 0.5 % (0.0-2.0); Eosinophils # (auto) 0.4 10 ^3/uL (0-0.8); Eosinophils % (auto) 3.5 % (0.0-7.0); Hematocrit 38.7 % (41.0-53.0); Hemoglobin 13.4 g/dL (13.5-17.5); Lymphocytes # (auto) 1.3 10 ^3/uL (0.4-5.4); Lymphocytes % (auto) 13.5 % (10.0-50.0); Mean Corpuscular Hemoglobin 29.7 pg (28.0-32.0); Mean Corpuscular Hgb Conc. 34.5 g/dL (32.0-36.0); Mean Corpuscular Volume 86.2 fL (80.0-100.0); Monocytes # (auto) 0.5 10 ^3/uL (0-1.3); Monocytes % (auto) 5.4 % (0.0-12.0); Neutrophils # (auto) 7.7 10 ^3/uL (1.6-8.6); Neutrophils % (auto) 77.1 % (37.0-80.0); Red Blood Cells 4.49 10^6/uL (4.5-5.90); Red Cell Distribution Width 14.1 % (11.8-14.3); White Blood Cell 9.9 10^3/uL (4.4-10.8)
[2022-02-16 09:19] LABS: Potassium 4.1 mmol/L (3.5-5.1)
[2022-02-16 09:22] LABS: Albumin 3.6 g/dL (3.4-5.0); BUN/Creatinine Ratio 17.1; Calcium 8.9 mg/dL (8.5-10.1)
[2022-02-16 09:26] LABS: Bilirubin, Total 0.3 mg/dL (0.2-1.0); Total Protein 7.2 g/dL (6.4-8.2)
[2022-02-16] MEDS ORDERED: NITROGLYCERIN 0.4 MG SL TAB SL PRN (11:45)
[2022-02-16] MEDS ORDERED: MORPHINE SULFATE INJ 2 MG/ml SYRG IV PRN (11:45)
[2022-02-16] MEDS ORDERED: DEXTROSE (50%) 50ML SYRG IV PRN (12:15)
[2022-02-16] MEDS ORDERED: metroNIDAZOLE 500MG/100ML 100 ML IV ONE (12:15)
[2022-02-16] MEDS ORDERED: levoFLOXacin 750MG 150 ML IV ONE (12:15)
[2022-02-16 12:50] LABS: Magnesium 1.8 mg/dL (1.6-2.6); Phosphorus 3.8 mg/dL (2.5-4.90)
[2022-02-16] MEDS: SODIUM CHLORIDE 0.9% 1,000 ML IV SCH (12:53)
[2022-02-16] MEDS: metroNIDAZOLE 500MG/100ML 100 ML IV SCH ×2 (14:00→22:01)
[2022-02-16 17:00] VITALS: BP 143/72
[2022-02-16] MEDS: ACCU-CHEK COMFORT CURVE STRIP VI SCH (17:51)
[2022-02-16] MEDS: InsuLIN REG 1unit/0.01ml Soln (100units/ml) SC SCH (17:53)
[2022-02-17] MEDS: ACCU-CHEK COMFORT CURVE STRIP VI SCH ×5 (00:14→23:31)
[2022-02-17] MEDS ORDERED: AMLO-489 PO (00:58)
[2022-02-17] MEDS ORDERED: CARV12.544 PO (00:58)
[2022-02-17] MEDS ORDERED: FOLI1TAB6 PO (00:58)
[2022-02-17] MEDS ORDERED: FERR325T20 PO (00:58)
[2022-02-17 05:00] VITALS: BP 147/84
[2022-02-17 05:22] LABS: Basophils # (auto) 0.1 10 ^3/uL (0-0.2); Basophils % (auto) 0.6 % (0.0-2.0); Eosinophils # (auto) 0.3 10 ^3/uL (0-0.8); Eosinophils % (auto) 3.5 % (0.0-7.0); Hemoglobin 13.2 g/dL (13.5-17.5); Lymphocytes # (auto) 1.6 10 ^3/uL (0.4-5.4); Lymphocytes % (auto) 18.1 % (10.0-50.0); Mean Corpuscular Hemoglobin 30.1 pg (28.0-32.0); Mean Corpuscular Hgb Conc. 35.5 g/dL (32.0-36.0); Mean Corpuscular Volume 84.7 fL (80.0-100.0); Monocytes # (auto) 0.5 10 ^3/uL (0-1.3); Monocytes % (auto) 6.2 % (0.0-12.0); Neutrophils # (auto) 6.2 10 ^3/uL (1.6-8.6); Neutrophils % (auto) 71.6 % (37.0-80.0); Red Blood Cells 4.37 10^6/uL (4.5-5.90); Red Cell Distribution Width 14.2 % (11.8-14.3); White Blood Cell 8.7 10^3/uL (4.4-10.8)
[2022-02-17 05:40] LABS: Albumin 3.2 g/dL (3.4-5.0); BUN/Creatinine Ratio 14.4; Calcium 8.6 mg/dL (8.5-10.1); Magnesium 1.8 mg/dL (1.6-2.6); Potassium 3.7 mmol/L (3.5-5.1)
[2022-02-17 05:42] LABS: Bilirubin, Total 0.3 mg/dL (0.2-1.0); Phosphorus 3.2 mg/dL (2.5-4.90); Total Protein 6.8 g/dL (6.4-8.2)
[2022-02-17] MEDS: SODIUM CHLORIDE 0.9% 1,000 ML IV SCH ×2 (06:15→22:26)
[2022-02-17] MEDS: metroNIDAZOLE 500MG/100ML 100 ML IV SCH ×3 (06:16→22:26)
[2022-02-17] MEDS: InsuLIN REG 1unit/0.01ml Soln (100units/ml) SC SCH ×5 (06:24→23:34)
[2022-02-17 08:57] VITALS: BP 165/73
[2022-02-17] MEDS: levoFLOXacin 750MG 150 ML IV SCH (10:13)
[2022-02-17] MEDS: LOSARTAN POTASSIUM 50 MG TAB PO SCH (12:15)
[2022-02-17] MEDS: amLODIPine BESYLATE 5 MG TAB PO SCH (12:15)
[2022-02-17] MEDS: CARVEDILOL 12.5 MG TAB PO SCH ×2 (12:15→22:27)
[2022-02-17 13:00] VITALS: BP 144/94
[2022-02-17 17:00] VITALS: BP 142/74
[2022-02-17 22:00] VITALS: BP 157/72
[2022-02-17] MEDS: FERROUS SULFATE 325mg EC TAB PO SCH (22:26)
[2022-02-17] MEDS: ASPIRIN-DIPYRIDAMOLE (25/200MG) CAPSULE PO SCH (22:27)
[2022-02-17] MEDS: DAKINS QUARTER STR 0.125% (NaHypochlorite) 473 ML TOPICAL SOL TOP SCH (23:31)
[2022-02-18 05:30] VITALS: BP 157/72
[2022-02-18] MEDS: metroNIDAZOLE 500MG/100ML 100 ML IV SCH ×3 (05:49→22:19)
[2022-02-18] MEDS: ACCU-CHEK COMFORT CURVE STRIP VI SCH ×3 (05:50→17:55)
[2022-02-18] MEDS: InsuLIN REG 1unit/0.01ml Soln (100units/ml) SC SCH ×4 (05:53→22:42)
[2022-02-18] MEDS: FERROUS SULFATE 325mg EC TAB PO SCH ×2 (09:07→22:20)
[2022-02-18] MEDS: FOLIC ACID 1 MG TAB PO SCH (09:07)
[2022-02-18] MEDS: ASPIRIN-DIPYRIDAMOLE (25/200MG) CAPSULE PO SCH ×2 (09:08→22:20)
[2022-02-18] MEDS: CARVEDILOL 12.5 MG TAB PO SCH ×2 (09:09→22:21)
[2022-02-18] MEDS: LOSARTAN POTASSIUM 50 MG TAB PO SCH (09:11)
[2022-02-18] MEDS: amLODIPine BESYLATE 5 MG TAB PO SCH (09:12)
[2022-02-18] MEDS: levoFLOXacin 750MG 150 ML IV SCH (09:13)
[2022-02-18 09:25] VITALS: BP 154/74
[2022-02-18] MEDS: DAKINS QUARTER STR 0.125% (NaHypochlorite) 473 ML TOPICAL SOL TOP SCH ×2 (12:52→22:21)
[2022-02-18 13:10] VITALS: BP 137/68
[2022-02-18] MEDS: SODIUM CHLORIDE 0.9% 1,000 ML IV SCH (14:17)
[2022-02-18 14:43] LABS: CRP High Sensitivity 1.08 mg/dL (< 0.3); Uric Acid 5.7 mg/dL (3.5-7.2)
[2022-02-18 16:27] VITALS: BP 139/70
[2022-02-18 22:08] VITALS: BP 172/77
[2022-02-18] MEDS: PRAVASTATIN SODIUM 20 MG TAB PO SCH (22:21)
[2022-02-19 05:07] VITALS: BP 140/62
[2022-02-19] MEDS: metroNIDAZOLE 500MG/100ML 100 ML IV SCH ×3 (06:03→21:17)
[2022-02-19] MEDS: ACCU-CHEK COMFORT CURVE STRIP VI SCH ×4 (06:04→18:10)
[2022-02-19] MEDS: InsuLIN REG 1unit/0.01ml Soln (100units/ml) SC SCH ×3 (06:04→18:11)
[2022-02-19] MEDS: SODIUM CHLORIDE 0.9% 1,000 ML IV SCH ×2 (06:05→23:35)
[2022-02-19] MEDS: levoFLOXacin 750MG 150 ML IV SCH (08:45)
[2022-02-19] MEDS: ASPIRIN-DIPYRIDAMOLE (25/200MG) CAPSULE PO SCH ×2 (08:48→21:17)
[2022-02-19] MEDS: FOLIC ACID 1 MG TAB PO SCH (08:48)
[2022-02-19] MEDS: FERROUS SULFATE 325mg EC TAB PO SCH ×2 (08:48→21:17)
[2022-02-19] MEDS: CARVEDILOL 12.5 MG TAB PO SCH ×2 (08:49→21:18)
[2022-02-19] MEDS: LOSARTAN POTASSIUM 50 MG TAB PO SCH (08:50)
[2022-02-19] MEDS: amLODIPine BESYLATE 5 MG TAB PO SCH (08:50)
[2022-02-19 09:27] VITALS: BP 151/81
[2022-02-19] MEDS: DAKINS QUARTER STR 0.125% (NaHypochlorite) 473 ML TOPICAL SOL TOP SCH ×2 (10:00→21:19)
[2022-02-19 12:54] VITALS: BP 157/77
[2022-02-19 16:46] VITALS: BP 150/80
[2022-02-19] MEDS: PRAVASTATIN SODIUM 20 MG TAB PO SCH (21:18)
[2022-02-19 22:00] VITALS: BP 156/83
[2022-02-20] MEDS: ACCU-CHEK COMFORT CURVE STRIP VI SCH ×4 (00:05→16:52)
[2022-02-20 05:00] VITALS: BP 149/77
[2022-02-20] MEDS: metroNIDAZOLE 500MG/100ML 100 ML IV SCH (06:00)
[2022-02-20] MEDS: InsuLIN REG 1unit/0.01ml Soln (100units/ml) SC SCH ×4 (06:26→16:55)
[2022-02-20 09:00] VITALS: BP 160/79
[2022-02-20] MEDS: ASPIRIN-DIPYRIDAMOLE (25/200MG) CAPSULE PO SCH ×2 (10:00→21:40)
[2022-02-20] MEDS: CARVEDILOL 12.5 MG TAB PO SCH ×2 (10:00→21:39)
[2022-02-20] MEDS ORDERED: IOHEXOL 350 MG/ML 100ML IJ ONE (10:18)
[2022-02-20] MEDS ORDERED: TAMS0.4C36 PO (11:30)
[2022-02-20] MEDS: LINEZOLID 600MG/300ML 300 ML IV SCH ×2 (11:31→21:39)
[2022-02-20] MEDS: LOSARTAN POTASSIUM 50 MG TAB PO SCH (11:32)
[2022-02-20] MEDS: amLODIPine BESYLATE 5 MG TAB PO SCH (11:32)
[2022-02-20] MEDS: FERROUS SULFATE 325mg EC TAB PO SCH ×2 (11:32→21:39)
[2022-02-20] MEDS: FOLIC ACID 1 MG TAB PO SCH (11:32)
[2022-02-20] MEDS: DAKINS QUARTER STR 0.125% (NaHypochlorite) 473 ML TOPICAL SOL TOP SCH ×2 (11:34→22:00)
[2022-02-20 13:00] VITALS: BP 169/77
[2022-02-20] MEDS: ERTAPENEM SOD INJ 1 GM in SODIUM CHL 0.9% 50 ML IV SCH (13:11)
[2022-02-20 15:22] LABS: Basophils # (auto) 0.1 10 ^3/uL (0-0.2); Eosinophils # (auto) 0.3 10 ^3/uL (0-0.8); Eosinophils % (auto) 4.2 % (0.0-7.0); Hematocrit 37.8 % (41.0-53.0); Lymphocytes # (auto) 1.3 10 ^3/uL (0.4-5.4); Lymphocytes % (auto) 18.4 % (10.0-50.0); Mean Corpuscular Hemoglobin 29.6 pg (28.0-32.0); Mean Corpuscular Hgb Conc. 34.5 g/dL (32.0-36.0); Mean Corpuscular Volume 85.8 fL (80.0-100.0); Monocytes # (auto) 0.5 10 ^3/uL (0-1.3); Monocytes % (auto) 6.7 % (0.0-12.0); Neutrophils # (auto) 5.1 10 ^3/uL (1.6-8.6); Neutrophils % (auto) 69.7 % (37.0-80.0); Red Cell Distribution Width 14.3 % (11.8-14.3); White Blood Cell 7.3 10^3/uL (4.4-10.8)
[2022-02-20] MEDS: SODIUM CHLORIDE 0.9% 1,000 ML IV SCH (16:15)
[2022-02-20 17:18] VITALS: BP 108/72
[2022-02-20 18:07] LABS: INR 1.09 (0.9-1.15)
[2022-02-20] MEDS: PRAVASTATIN SODIUM 20 MG TAB PO SCH (21:39)
[2022-02-20 22:00] VITALS: BP 148/68
[2022-02-21] VITALS (8 sets, daily range): BP systolic 103–162; BP diastolic 64–85
[2022-02-21] MEDS: ACCU-CHEK COMFORT CURVE STRIP VI SCH ×4 (00:17→17:27)
[2022-02-21] MEDS: InsuLIN REG 1unit/0.01ml Soln (100units/ml) SC SCH ×4 (00:28→17:27)
[2022-02-21] MEDS ORDERED: LIDOCAINE 2%HCL (LOCAL ANESTH.) INJ 10ml MDV ONE (09:54)
[2022-02-21] MEDS ORDERED: IOHEXOL 350 MG/ML 100ML IJ ONE (09:54)
[2022-02-21] MEDS: ASPIRIN-DIPYRIDAMOLE (25/200MG) CAPSULE PO SCH ×2 (10:00→22:14)
[2022-02-21] MEDS: DAKINS QUARTER STR 0.125% (NaHypochlorite) 473 ML TOPICAL SOL TOP SCH ×2 (10:00→22:15)
[2022-02-21] MEDS ORDERED: fentaNYL CITRATE 100 MCG/2 ML VL ONE (10:13)
[2022-02-21] MEDS ORDERED: ANGIOMAX 250 MG VIAL IV ONE (10:13)
[2022-02-21] MEDS ORDERED: NITROGLYCERIN 5MG/ML 10ML VIAL IV ONE (10:13)
[2022-02-21] MEDS ORDERED: SODIUM CHL 0.9% 100 ML ONE (10:14)
[2022-02-21] MEDS ORDERED: MIDAZOLAM HCL 2MG/2ML 2ml VIAL (1mg/ml) ONE (10:14)
[2022-02-21] MEDS ORDERED: VERAPAMIL 2.5MG/ML INJ 2ML VIAL IV ONE (10:56)
[2022-02-21] MEDS ORDERED: ADENOSINE 6 MG/2 ML INJ IV ONE (11:02)
[2022-02-21] MEDS: LINEZOLID 600MG/300ML 300 ML IV SCH ×2 (13:42→22:14)
[2022-02-21] MEDS: FERROUS SULFATE 325mg EC TAB PO SCH ×2 (13:43→22:14)
[2022-02-21] MEDS: FOLIC ACID 1 MG TAB PO SCH (13:43)
[2022-02-21] MEDS: CARVEDILOL 12.5 MG TAB PO SCH ×2 (13:44→22:15)
[2022-02-21] MEDS: LOSARTAN POTASSIUM 50 MG TAB PO SCH (13:44)
[2022-02-21] MEDS: ERTAPENEM SOD INJ 1 GM in SODIUM CHL 0.9% 50 ML IV SCH (17:12)
[2022-02-21] MEDS: amLODIPine BESYLATE 5 MG TAB PO SCH (17:12)
[2022-02-21] MEDS: PRAVASTATIN SODIUM 20 MG TAB PO SCH (22:15)
[2022-02-22] MEDS: ACCU-CHEK COMFORT CURVE STRIP VI SCH ×4 (00:10→17:56)
[2022-02-22] MEDS: InsuLIN REG 1unit/0.01ml Soln (100units/ml) SC SCH ×4 (00:12→17:57)
[2022-02-22] MEDS: SODIUM CHLORIDE 0.9% 1,000 ML IV SCH ×3 (01:35→18:15)
[2022-02-22 05:00] VITALS: BP 140/74
[2022-02-22 08:00] VITALS: BP 137/70
[2022-02-22 09:00] VITALS: BP 164/76
[2022-02-22] MEDS: ERTAPENEM SOD INJ 1 GM in SODIUM CHL 0.9% 50 ML IV SCH (09:51)
[2022-02-22] MEDS: FOLIC ACID 1 MG TAB PO SCH (09:51)
[2022-02-22] MEDS: FERROUS SULFATE 325mg EC TAB PO SCH ×2 (09:51→22:20)
[2022-02-22] MEDS: ASPIRIN-DIPYRIDAMOLE (25/200MG) CAPSULE PO SCH ×2 (09:52→22:00)
[2022-02-22] MEDS: LOSARTAN POTASSIUM 50 MG TAB PO SCH (09:52)
[2022-02-22] MEDS: amLODIPine BESYLATE 5 MG TAB PO SCH (09:53)
[2022-02-22] MEDS: CARVEDILOL 12.5 MG TAB PO SCH ×2 (10:00→22:21)
[2022-02-22] MEDS: DAKINS QUARTER STR 0.125% (NaHypochlorite) 473 ML TOPICAL SOL TOP SCH ×2 (10:00→22:21)
[2022-02-22] MEDS: LINEZOLID 600MG/300ML 300 ML IV SCH ×2 (10:15→22:20)
[2022-02-22] MEDS: CLOPIDOGREL BISULFATE 75 MG TAB PO SCH (10:21)
[2022-02-22 13:00] VITALS: BP 141/70
[2022-02-22 17:00] VITALS: BP 134/84
[2022-02-22 22:00] VITALS: BP 136/56
[2022-02-22] MEDS: PRAVASTATIN SODIUM 20 MG TAB PO SCH (22:21)
[2022-02-23] MEDS: ACCU-CHEK COMFORT CURVE STRIP VI SCH ×4 (00:11→17:35)
[2022-02-23] MEDS: InsuLIN REG 1unit/0.01ml Soln (100units/ml) SC SCH ×4 (00:12→17:34)
[2022-02-23 05:00] VITALS: BP 151/68
[2022-02-23 09:00] VITALS: BP 155/77
[2022-02-23] MEDS: FOLIC ACID 1 MG TAB PO SCH (10:02)
[2022-02-23] MEDS: LINEZOLID 600MG/300ML 300 ML IV SCH ×2 (10:02→22:20)
[2022-02-23] MEDS: CARVEDILOL 12.5 MG TAB PO SCH ×2 (10:03→22:21)
[2022-02-23] MEDS: FERROUS SULFATE 325mg EC TAB PO SCH ×2 (10:04→22:21)
[2022-02-23] MEDS: amLODIPine BESYLATE 5 MG TAB PO SCH (10:04)
[2022-02-23] MEDS: CLOPIDOGREL BISULFATE 75 MG TAB PO SCH (10:04)
[2022-02-23] MEDS: LOSARTAN POTASSIUM 50 MG TAB PO SCH (10:05)
[2022-02-23] MEDS: DAKINS QUARTER STR 0.125% (NaHypochlorite) 473 ML TOPICAL SOL TOP SCH ×2 (10:05→22:22)
[2022-02-23] MEDS: SODIUM CHLORIDE 0.9% 1,000 ML IV SCH (10:06)
[2022-02-23] MEDS: ASPIRIN-DIPYRIDAMOLE (25/200MG) CAPSULE PO SCH ×2 (10:07→22:21)
[2022-02-23] MEDS: ERTAPENEM SOD INJ 1 GM in SODIUM CHL 0.9% 50 ML IV SCH (11:41)
[2022-02-23 13:00] VITALS: BP 130/67
[2022-02-23 17:00] VITALS: BP 147/70
[2022-02-23 22:00] VITALS: BP 145/79
[2022-02-23] MEDS: PRAVASTATIN SODIUM 20 MG TAB PO SCH (22:22)
[2022-02-24] MEDS: ACCU-CHEK COMFORT CURVE STRIP VI SCH ×5 (00:21→23:00)
[2022-02-24] MEDS: InsuLIN REG 1unit/0.01ml Soln (100units/ml) SC SCH ×5 (00:22→23:14)
[2022-02-24] MEDS: SODIUM CHLORIDE 0.9% 1,000 ML IV SCH ×2 (03:35→04:35)
[2022-02-24 05:00] VITALS: BP 146/74
[2022-02-24 06:35] LABS: BUN/Creatinine Ratio 15.2; Calcium 8.3 mg/dL (8.5-10.1); Potassium 3.4 mmol/L (3.5-5.1)
[2022-02-24 06:39] LABS: Basophils # (auto) 0.1 10 ^3/uL (0-0.2); Basophils % (auto) 0.7 % (0.0-2.0); Eosinophils # (auto) 0.4 10 ^3/uL (0-0.8); Eosinophils % (auto) 4.6 % (0.0-7.0); Hematocrit 34.9 % (41.0-53.0); Hemoglobin 12.2 g/dL (13.5-17.5); Lymphocytes # (auto) 1.8 10 ^3/uL (0.4-5.4); Lymphocytes % (auto) 22.2 % (10.0-50.0); Mean Corpuscular Hemoglobin 29.7 pg (28.0-32.0); Mean Corpuscular Volume 85.1 fL (80.0-100.0); Monocytes # (auto) 0.6 10 ^3/uL (0-1.3); Monocytes % (auto) 7.1 % (0.0-12.0); Neutrophils # (auto) 5.2 10 ^3/uL (1.6-8.6); Neutrophils % (auto) 65.4 % (37.0-80.0); Red Cell Distribution Width 14.4 % (11.8-14.3)
[2022-02-24 08:05] VITALS: BP 152/85
[2022-02-24] MEDS: CARVEDILOL 12.5 MG TAB PO SCH ×2 (08:58→22:58)
[2022-02-24] MEDS: LINEZOLID 600MG/300ML 300 ML IV SCH ×2 (08:58→22:57)
[2022-02-24] MEDS: amLODIPine BESYLATE 5 MG TAB PO SCH (08:59)
[2022-02-24] MEDS: FOLIC ACID 1 MG TAB PO SCH (09:00)
[2022-02-24] MEDS: LOSARTAN POTASSIUM 50 MG TAB PO SCH (09:00)
[2022-02-24] MEDS: FERROUS SULFATE 325mg EC TAB PO SCH ×2 (09:00→22:58)
[2022-02-24] MEDS: DAKINS QUARTER STR 0.125% (NaHypochlorite) 473 ML TOPICAL SOL TOP SCH ×2 (10:00→22:00)
[2022-02-24] MEDS: CLOPIDOGREL BISULFATE 75 MG TAB PO SCH (10:00)
[2022-02-24] MEDS: ASPIRIN-DIPYRIDAMOLE (25/200MG) CAPSULE PO SCH ×2 (10:00→22:58)
[2022-02-24] MEDS: ERTAPENEM SOD INJ 1 GM in SODIUM CHL 0.9% 50 ML IV SCH (10:39)
[2022-02-24] MEDS ORDERED: LIDOCAINE 1%HCL (LOCAL ANESTH) 10 ML MDV ONE (11:43)
[2022-02-24] MEDS ORDERED: BUPIVACAINE HCL 50 ML ONE (11:44)
[2022-02-24] MEDS ORDERED: SODIUM CHLORIDE LOCK 10 ML ONE (11:49)
[2022-02-24] MEDS ORDERED: PROPOFOL 10 MG/ML 20 ML IV ONE (11:49)
[2022-02-24] MEDS ORDERED: ONDANSETRON HCL 4 MG/2 ML VIAL ONE (11:49)
[2022-02-24] MEDS ORDERED: MIDAZOLAM HCL 2MG/2ML 2ml VIAL (1mg/ml) ONE (11:49)
[2022-02-24] MEDS ORDERED: fentaNYL CITRATE 100 MCG/2 ML VL ONE (11:49)
[2022-02-24] MEDS ORDERED: ACCU-CHEK COMFORT CURVE STRIP VI ONE (12:00)
[2022-02-24] MEDS ORDERED: HYDROmorphone HCL 2 MG/ML VL/or syr IV PRN (12:00)
[2022-02-24] MEDS ORDERED: METOCLOPRAMIDE HCL 5MG/ml INJ 2ml VIAL IV PRN (12:00)
[2022-02-24] MEDS ORDERED: MORPHINE SULFATE 4 MG/ML SYR/VIAL IV PRN (12:00)
[2022-02-24 12:10] VITALS: BP 156/78
[2022-02-24 17:00] VITALS: BP 148/70
[2022-02-24 22:00] VITALS: BP 177/84
[2022-02-24] MEDS: PRAVASTATIN SODIUM 20 MG TAB PO SCH (22:59)
[2022-02-25] MEDS ORDERED: HYDROcodone-ACET 5/325MG TAB PO PRN (04:30)
[2022-02-25 05:00] VITALS: BP 152/72
[2022-02-25] MEDS: ACCU-CHEK COMFORT CURVE STRIP VI SCH ×2 (06:30→12:42)
[2022-02-25] MEDS: InsuLIN REG 1unit/0.01ml Soln (100units/ml) SC SCH ×2 (06:41→12:57)
[2022-02-25] MEDS ORDERED: HYDR-4902 PO (08:14)
[2022-02-25] MEDS ORDERED: LINE1TAB6 PO (08:14)
[2022-02-25] MEDS ORDERED: LEVO500T31 PO (08:14)
[2022-02-25] MEDS ORDERED: CLOP75TA28 PO (08:14)
[2022-02-25 09:00] VITALS: BP 155/73
[2022-02-25] MEDS: LOSARTAN POTASSIUM 50 MG TAB PO SCH (09:59)
[2022-02-25] MEDS: amLODIPine BESYLATE 5 MG TAB PO SCH (10:00)
[2022-02-25] MEDS: FOLIC ACID 1 MG TAB PO SCH (10:00)
[2022-02-25] MEDS: DAKINS QUARTER STR 0.125% (NaHypochlorite) 473 ML TOPICAL SOL TOP SCH (10:00)
[2022-02-25] MEDS: CLOPIDOGREL BISULFATE 75 MG TAB PO SCH (10:01)
[2022-02-25] MEDS: CARVEDILOL 12.5 MG TAB PO SCH ×2 (10:01→12:41)
[2022-02-25] MEDS: FERROUS SULFATE 325mg EC TAB PO SCH (10:01)
[2022-02-25] MEDS: ASPIRIN-DIPYRIDAMOLE (25/200MG) CAPSULE PO SCH (10:02)
[2022-02-25] MEDS: ERTAPENEM SOD INJ 1 GM in SODIUM CHL 0.9% 50 ML IV SCH (10:03)
[2022-02-25] MEDS: LINEZOLID 600MG/300ML 300 ML IV SCH (10:03)
[2022-02-25 12:30] VITALS: BP 133/58
[2022-02-25] MEDS: SODIUM CHLORIDE 0.9% 1,000 ML IV SCH (12:43)
[2022-02-25 12:56] VITALS: BP 155/73
== END 2022-02-25 13:49 | disposition home or self-care (01) | DRG 364 ==
LOC: ER 07:17 → OVERFLOW 11:36 → CENTRAL 15:29
PROVIDERS: ADMIT Hospitalist; ATTEND Family Medicine
PROC: B41G1ZZ Fluoroscopy of Left Lower Extremity Arteries using Low Osmolar Contrast (ICD-10-PCS; 2022-02-21)
PROC: B41F1ZZ Fluoroscopy of Right Lower Extremity Arteries using Low Osmolar Contrast (ICD-10-PCS; 2022-02-21)
PROC: 047L3ZZ Dilation of Left Femoral Artery, Percutaneous Approach (ICD-10-PCS; 2022-02-21)
PROC: 047N3ZZ Dilation of Left Popliteal Artery, Percutaneous Approach (ICD-10-PCS; 2022-02-21)
PROC: 04CN3ZZ Extirpation of Matter from Left Popliteal Artery, Percutaneous Approach (ICD-10-PCS; 2022-02-21)
PROC: 05H933Z Insertion of Infusion Device into Right Brachial Vein, Percutaneous Approach (ICD-10-PCS; 2022-02-21)
PROC: B54MZZA Ultrasonography of Right Upper Extremity Veins, Guidance (ICD-10-PCS; 2022-02-21)
PROC: 0QBP0ZZ Excision of Left Metatarsal, Open Approach (ICD-10-PCS; principal; 2022-02-24 12:30)
DX: E11.621 Type 2 diabetes mellitus with foot ulcer (principal); L97.529 Non-pressure chronic ulcer of other part of left foot with unspecified severity; E11.21 Type 2 diabetes mellitus with diabetic nephropathy; E11.40 Type 2 diabetes mellitus with diabetic neuropathy, unspecified; E88.09 Other disorders of plasma-protein metabolism, not elsewhere classified; L03.116 Cellulitis of left lower limb; B95.4 Other streptococcus as the cause of diseases classified elsewhere; E11.51 Type 2 diabetes mellitus with diabetic peripheral angiopathy without gangrene; I10 Essential (primary) hypertension; N28.9 Disorder of kidney and ureter, unspecified; K21.9 Gastro-esophageal reflux disease without esophagitis; E78.5 Hyperlipidemia, unspecified; Z83.3 Family history of diabetes mellitus; Z79.4 Long term (current) use of insulin; Z86.73 Personal history of transient ischemic attack (TIA), and cerebral infarction without residual deficits; Z91.19 Patient's noncompliance with other medical treatment and regimen; Z82.49 Family history of ischemic heart disease and other diseases of the circulatory system; Z85.46 Personal history of malignant neoplasm of prostate; Z80.42 Family history of malignant neoplasm of prostate
CPT/HCPCS: 36415; 37225; 37228; 73630; 75716; 80048; 80053; 80061; 82728; 82962; 83605; 83615; 83690; 83735; 83880; 84100; 84443; 84484; 84550; 85025; 85379; 85610; 85652; 86141; 86850; 86900; 86901; 87040; 87070; 87075; 87076; 87077; 87086; 87186; 87205; 93005; 93925; 93970; 96361; 96365; 96367; 97116; 97163; 97530; 99152; 99153; C1724; G0378; J0153; J1335; J1815; J1956; J2001; J2250; J2405; J2704; J3490

== ENCOUNTER → 2022-05-02 | Outpatient (CLI) | payer MEDICAID ==
[~2022-05-02] MED LIST changes: +CARV12.544 PO; +CLOP75TA28 PO; +FERR325T20 PO; +FOLI1TAB6 PO; +HYDR-4902 PO; +LEVO500T31 PO; +LINE1TAB6 PO; +TAMS0.4C36 PO
[2022-05-02 09:19] VITALS: BP 156/69
[2022-05-02 09:36] VITALS: BP 147/67
[2022-05-02 11:24] LABS: Basophils # (auto) 0 10 ^3/uL (0-0.2); Basophils % (auto) 0.6 % (0.0-2.0); Eosinophils # (auto) 0.3 10 ^3/uL (0-0.8); Eosinophils % (auto) 4.2 % (0.0-7.0); Hematocrit 40.6 % (41.0-53.0); Hemoglobin 13.4 g/dL (13.5-17.5); Lymphocytes # (auto) 1.5 10 ^3/uL (0.4-5.4); Lymphocytes % (auto) 21.7 % (10.0-50.0); Mean Corpuscular Hemoglobin 29.6 pg (28.0-32.0); Mean Corpuscular Hgb Conc. 33.1 g/dL (32.0-36.0); Mean Corpuscular Volume 89.3 fL (80.0-100.0); Monocytes # (auto) 0.3 10 ^3/uL (0-1.3); Monocytes % (auto) 5.2 % (0.0-12.0); Neutrophils # (auto) 4.6 10 ^3/uL (1.6-8.6); Neutrophils % (auto) 68.3 % (37.0-80.0); Red Blood Cells 4.55 10^6/uL (4.5-5.90); Red Cell Distribution Width 14.4 % (11.8-14.3); White Blood Cell 6.7 10^3/uL (4.4-10.8)
[2022-05-02 11:35] LABS: BUN/Creatinine Ratio 15.5; Calcium 8.8 mg/dL (8.5-10.1); Potassium 3.9 mmol/L (3.5-5.1)
[2022-05-02 11:48] LABS: INR 0.99 (0.9-1.15); Partial Thromboplastin Time 28.5 sec (24.6-33.4)
== END | disposition home or self-care (01) ==
LOC: Rad HDHVI 09:05
PROVIDERS: ATTEND Internal Medicine Cardiovascular Disease
DX: I51.7 Cardiomegaly (principal); J84.114 Acute interstitial pneumonitis; I73.9 Peripheral vascular disease, unspecified; Z01.812 Encounter for preprocedural laboratory examination
CPT/HCPCS: 36415; 71046; 80048; 85025; 85610; 85730; 93005; G0463

== ENCOUNTER 2022-05-03 13:00 | Day surgery (SDC) | payer MEDICAID ==
[~2022-05-03] VITALS: Ht 160 cm; Wt 70.3 kg
[~2022-05-03 13:00] MED LIST changes: -GLIP10TA9 PO; -INSLANTI SC; -LEVO500T31 PO; -LEVO750T64 PO; -LINE1TAB6 PO; -TAMS0.4C36 PO
[2022-05-03] MEDS ORDERED: fentaNYL CITRATE 100 MCG/2 ML VL ONE (16:23)
[2022-05-03] MEDS ORDERED: MIDAZOLAM HCL 2MG/2ML 2ml VIAL (1mg/ml) ONE (16:23)
[2022-05-03] MEDS ORDERED: SODIUM CHL 0.9% 0 ML ONE (16:23)
[2022-05-03] MEDS ORDERED: ANGIOMAX 250 MG VIAL IV ONE (16:23)
[2022-05-03] MEDS ORDERED: LIDOCAINE 2%HCL (LOCAL ANESTH.) INJ 10ml MDV ONE (16:25)
[2022-05-03] MEDS ORDERED: IOHEXOL 350 MG/ML 100ML IJ ONE (16:25)
[2022-05-03] MEDS ORDERED: cloNIDine HCL 0.1 MG TAB PO ONE (17:30)
== END 2022-05-03 19:26 | disposition home or self-care (01) ==
LOC: CATH 13:00
PROVIDERS: ATTEND Internal Medicine Cardiovascular Disease
DX: E11.51 Type 2 diabetes mellitus with diabetic peripheral angiopathy without gangrene (principal); I10 Essential (primary) hypertension; E78.5 Hyperlipidemia, unspecified; Z79.02 Long term (current) use of antithrombotics/antiplatelets; Z82.49 Family history of ischemic heart disease and other diseases of the circulatory system; Z83.3 Family history of diabetes mellitus; Z80.42 Family history of malignant neoplasm of prostate; Z20.822 Contact with and (suspected) exposure to COVID-19
CPT/HCPCS: 36245; C1760; C1769; C1887; C1894; J1644; J2001; J2250; J3010; Q9967; U0003; 99152

== ENCOUNTER 2022-06-28 10:10 | Emergency (ER) | payer MEDICAID ==
[~2022-06-28] VITALS: Ht 190.5 cm; Wt 72.0 kg
[2022-06-28] MEDS ORDERED: CEPH-510 PO (13:28)
[2022-06-28 13:31] VITALS: BP 153/84
== END 2022-06-28 13:43 | disposition home or self-care (01) ==
LOC: ER 10:10
DX: S80.861A Insect bite (nonvenomous), right lower leg, initial encounter (principal); I10 Essential (primary) hypertension; E11.9 Type 2 diabetes mellitus without complications; K21.9 Gastro-esophageal reflux disease without esophagitis; E78.5 Hyperlipidemia, unspecified; Z86.73 Personal history of transient ischemic attack (TIA), and cerebral infarction without residual deficits; Z79.82 Long term (current) use of aspirin; Z79.01 Long term (current) use of anticoagulants; Z79.899 Other long term (current) drug therapy; W57.XXXA Bitten or stung by nonvenomous insect and other nonvenomous arthropods, initial encounter; Y93.89 Activity, other specified; Y92.89 Other specified places as the place of occurrence of the external cause; Y99.8 Other external cause status

== ENCOUNTER 2022-10-13 08:26 | Emergency (ER) | payer MEDICAID ==
[~2022-10-13] VITALS: Ht 157.5 cm; Wt 72.9 kg
[~2022-10-13 08:26] MED LIST changes: +CEPH-510 PO
[2022-10-13 08:38] VITALS: BP 174/89
[2022-10-13 10:46] LABS: Basophils # (auto) 0.1 10 ^3/uL (0-0.2); Basophils % (auto) 0.4 % (0.0-2.0); Eosinophils # (auto) 0.1 10 ^3/uL (0-0.8); Eosinophils % (auto) 0.8 % (0.0-7.0); Hematocrit 38.3 % (41.0-53.0); Hemoglobin 13.1 g/dL (13.5-17.5); Lymphocytes # (auto) 0.9 10 ^3/uL (0.4-5.4); Lymphocytes % (auto) 6.4 % (10.0-50.0); Mean Corpuscular Hemoglobin 30.4 pg (28.0-32.0); Mean Corpuscular Hgb Conc. 34.2 g/dL (32.0-36.0); Mean Corpuscular Volume 88.7 fL (80.0-100.0); Monocytes % (auto) 7.1 % (0.0-12.0); Neutrophils # (auto) 11.5 10 ^3/uL (1.6-8.6); Neutrophils % (auto) 85.3 % (37.0-80.0); Red Blood Cells 4.32 10^6/uL (4.5-5.90); Red Cell Distribution Width 13.9 % (11.8-14.3); White Blood Cell 13.5 10^3/uL (4.4-10.8)
[2022-10-13 11:14] LABS: BUN/Creatinine Ratio 16.1; Calcium 8.8 mg/dL (8.5-10.1); Potassium 3.7 mmol/L (3.5-5.1)
[2022-10-13 11:15] LABS: Albumin 3.3 g/dL (3.4-5.0); Bilirubin, Total 0.7 mg/dL (0.2-1.0); Total Protein 7.9 g/dL (6.4-8.2)
[2022-10-13] MEDS ORDERED: AZIT1POW PO (11:41)
== END 2022-10-13 12:02 | disposition home or self-care (01) ==
LOC: ER 08:26
DX: J20.9 Acute bronchitis, unspecified (principal); R50.9 Fever, unspecified; E11.9 Type 2 diabetes mellitus without complications; E78.5 Hyperlipidemia, unspecified; K21.9 Gastro-esophageal reflux disease without esophagitis; Z86.73 Personal history of transient ischemic attack (TIA), and cerebral infarction without residual deficits; Z79.899 Other long term (current) drug therapy; Z20.822 Contact with and (suspected) exposure to COVID-19
CPT/HCPCS: 36415; 71045; 80053; 82962; 85025; 87426; 87804; 93005

== ENCOUNTER 2023-02-13 08:29 | Inpatient (IN) | payer MEDICAID ==
[~2023-02-13] VITALS: Ht 167.6 cm; Wt 71.4 kg
[~2023-02-13 08:29] MED LIST changes: +AZIT1POW PO
[2023-02-13 09:05] LABS: Basophils # (auto) 0.1 10 ^3/uL (0-0.2); Basophils % (auto) 0.8 % (0.0-2.0); Eosinophils # (auto) 0.3 10 ^3/uL (0-0.8); Eosinophils % (auto) 3.8 % (0.0-7.0); Hematocrit 40.3 % (41.0-53.0); Hemoglobin 13.9 g/dL (13.5-17.5); Lymphocytes # (auto) 1.7 10 ^3/uL (0.4-5.4); Lymphocytes % (auto) 24.1 % (10.0-50.0); Mean Corpuscular Hemoglobin 28.8 pg (28.0-32.0); Mean Corpuscular Hgb Conc. 34.4 g/dL (32.0-36.0); Mean Corpuscular Volume 83.7 fL (80.0-100.0); Monocytes # (auto) 0.4 10 ^3/uL (0-1.3); Monocytes % (auto) 5.5 % (0.0-12.0); Neutrophils # (auto) 4.6 10 ^3/uL (1.6-8.6); Neutrophils % (auto) 65.8 % (37.0-80.0); Red Blood Cells 4.81 10^6/uL (4.5-5.90); Red Cell Distribution Width 12.9 % (11.8-14.3); White Blood Cell 6.9 10^3/uL (4.4-10.8)
[2023-02-13 09:32] LABS: Potassium 4.4 mmol/L (3.5-5.1)
[2023-02-13 09:42] LABS: Albumin 3.3 g/dL (3.4-5.0); BUN/Creatinine Ratio 16.2 (10.0-20.0); Bilirubin, Total 0.4 mg/dL (0.2-1.0); Calcium 8.7 mg/dL (8.5-10.1); Total Protein 6.6 g/dL (6.4-8.2)
[2023-02-13] MEDS ORDERED: DEXTROSE (50%) 50ML SYRG IV PRN ×2 (10:15→14:00)
[2023-02-13] MEDS ORDERED: SODIUM CHLORIDE 0.9% 1,000 ML IV ONE ×2 (10:15)
[2023-02-13] MEDS ORDERED: InsuLIN R (HUMAN) 100 UNITS in SODIUM CHL 0.9% 99 ML IV SCH (10:15)
[2023-02-13] MEDS ORDERED: INSULIN LANTUS (GLARGINE) 1 /0.01ml (100units/ml) SC ONE (10:15)
[2023-02-13 11:37] LABS: Urine Bacteria NONE SEEN /hpf (None Seen); Urine Blood Negative /uL (Negative); Urine Specific Gravity 1.025 (1.001-1.035); Urine WBC <1 /hpf (0 - 3)
[2023-02-13] MEDS ORDERED: LABETALOL HCL 5 MG/ML 4ML SYRINGE IV ONE (12:30)
[2023-02-13] MEDS: ACCU-CHEK COMFORT CURVE STRIP VI SCH ×4 (13:04→22:29)
[2023-02-13] MEDS ORDERED: ACETAMINOPHEN 325 MG TAB PO PRN (14:00)
[2023-02-13] MEDS ORDERED: NITROGLYCERIN 0.4 MG SL TAB SL PRN (14:00)
[2023-02-13] MEDS ORDERED: MORPHINE SULFATE INJ 2 MG/ml SYRG IV PRN (14:00)
[2023-02-13] MEDS: InsuLIN REG 1unit/0.01ml Soln (100units/ml) SC SCH ×2 (17:07→22:30)
[2023-02-13] MEDS: hydrALAZINE HCL 20 MG/ML VL IV PRN (18:56)
[2023-02-13] MEDS: SODIUM CHLORIDE 0.9% 1,000 ML IV SCH (19:01)
[2023-02-13] MEDS: ASPIRIN-DIPYRIDAMOLE (25/200MG) CAPSULE PO SCH (22:28)
[2023-02-13] MEDS: FERROUS SULFATE 325mg EC TAB PO SCH (22:29)
[2023-02-13] MEDS: CARVEDILOL 12.5 MG TAB PO SCH (22:29)
[2023-02-14 05:59] LABS: Basophils # (auto) 0 10 ^3/uL (0-0.2); Basophils % (auto) 0.2 % (0.0-2.0); Eosinophils # (auto) 0.2 10 ^3/uL (0-0.8); Eosinophils % (auto) 1.4 % (0.0-7.0); Hematocrit 37.1 % (41.0-53.0); Hemoglobin 13.4 g/dL (13.5-17.5); Lymphocytes # (auto) 1.8 10 ^3/uL (0.4-5.4); Lymphocytes % (auto) 15.1 % (10.0-50.0); Mean Corpuscular Hemoglobin 29.9 pg (28.0-32.0); Mean Corpuscular Hgb Conc. 36.1 g/dL (32.0-36.0); Mean Corpuscular Volume 82.7 fL (80.0-100.0); Monocytes # (auto) 0.6 10 ^3/uL (0-1.3); Monocytes % (auto) 5.2 % (0.0-12.0); Neutrophils # (auto) 9.2 10 ^3/uL (1.6-8.6); Neutrophils % (auto) 78.1 % (37.0-80.0); Nucleated Red Blood Cells % 0.1 %; Red Blood Cells 4.48 10^6/uL (4.5-5.90); Red Cell Distribution Width 13.3 % (11.8-14.3); White Blood Cell 11.8 10^3/uL (4.4-10.8)
[2023-02-14 06:32] LABS: Potassium 3.4 mmol/L (3.5-5.1)
[2023-02-14 06:38] LABS: BUN/Creatinine Ratio 32.1 (10.0-20.0); Bilirubin, Total 0.3 mg/dL (0.2-1.0); Calcium 8.2 mg/dL (8.5-10.1); Total Protein 6.2 g/dL (6.4-8.2)
[2023-02-14] MEDS: SODIUM CHLORIDE 0.9% 1,000 ML IV SCH (06:40)
[2023-02-14] MEDS: InsuLIN REG 1unit/0.01ml Soln (100units/ml) SC SCH ×4 (07:00→22:00)
[2023-02-14] MEDS: ACCU-CHEK COMFORT CURVE STRIP VI SCH ×4 (07:14→22:06)
[2023-02-14] MEDS: FOLIC ACID 1 MG TAB PO SCH (10:18)
[2023-02-14] MEDS: FERROUS SULFATE 325mg EC TAB PO SCH ×2 (10:19→22:40)
[2023-02-14] MEDS: CARVEDILOL 12.5 MG TAB PO SCH ×2 (10:19→22:40)
[2023-02-14] MEDS: CLOPIDOGREL BISULFATE 75 MG TAB PO SCH (10:19)
[2023-02-14] MEDS: amLODIPine BESYLATE 5 MG TAB PO SCH (10:20)
[2023-02-14] MEDS: ENOXAPARIN SOD 40 MG/0.4 ML SYRINGE SC SCH (10:20)
[2023-02-14] MEDS: LOSARTAN POTASSIUM 50 MG TAB PO SCH (10:20)
[2023-02-14] MEDS: INSULIN LANTUS (GLARGINE) 1 /0.01ml (100units/ml) SC SCH (10:26)
[2023-02-14] MEDS: ASPIRIN-DIPYRIDAMOLE (25/200MG) CAPSULE PO SCH ×2 (10:33→22:46)
[2023-02-14] MEDS ORDERED: CLOTRIMAZOLE 1 % CREAM 15GM TOP ONE (11:15)
[2023-02-14] MEDS: PRAVASTATIN SODIUM 20 MG TAB PO SCH (22:40)
[2023-02-14 23:56] VITALS: BP_SYST 143; BP_SYST 184; BP_DIAS 67; BP_DIAS 85
[2023-02-15] MEDS: CLOTRIMAZOLE 1 % CREAM 15GM TOP SCH ×3 (01:40→21:45)
[2023-02-15 05:00] VITALS: BP 152/74
[2023-02-15 05:09] LABS: Basophils # (auto) 0 10 ^3/uL (0-0.2); Basophils % (auto) 0.5 % (0.0-2.0); Eosinophils # (auto) 0.1 10 ^3/uL (0-0.8); Eosinophils % (auto) 1.5 % (0.0-7.0); Hematocrit 39.9 % (41.0-53.0); Mean Corpuscular Hemoglobin 29.3 pg (28.0-32.0); Mean Corpuscular Hgb Conc. 35.1 g/dL (32.0-36.0); Mean Corpuscular Volume 83.4 fL (80.0-100.0); Monocytes # (auto) 0.4 10 ^3/uL (0-1.3); Monocytes % (auto) 3.9 % (0.0-12.0); Neutrophils # (auto) 6.5 10 ^3/uL (1.6-8.6); Neutrophils % (auto) 72.1 % (37.0-80.0); Nucleated Red Blood Cells % 0.1 %; Red Blood Cells 4.79 10^6/uL (4.5-5.90); Red Cell Distribution Width 13.5 % (11.8-14.3)
[2023-02-15 05:32] LABS: BUN/Creatinine Ratio 19.5 (10.0-20.0); Calcium 8.6 mg/dL (8.5-10.1); Potassium 3.8 mmol/L (3.5-5.1)
[2023-02-15] MEDS: ACCU-CHEK COMFORT CURVE STRIP VI SCH ×4 (06:17→21:44)
[2023-02-15] MEDS: hydrALAZINE HCL 20 MG/ML VL IV PRN (06:18)
[2023-02-15] MEDS: InsuLIN REG 1unit/0.01ml Soln (100units/ml) SC SCH ×4 (06:38→22:08)
[2023-02-15 08:00] VITALS: BP 157/72
[2023-02-15 08:30] VITALS: BP 157/72
[2023-02-15] MEDS: FERROUS SULFATE 325mg EC TAB PO SCH ×2 (10:30→21:43)
[2023-02-15] MEDS: LOSARTAN POTASSIUM 50 MG TAB PO SCH (10:31)
[2023-02-15] MEDS: FOLIC ACID 1 MG TAB PO SCH (10:31)
[2023-02-15] MEDS: amLODIPine BESYLATE 5 MG TAB PO SCH (10:32)
[2023-02-15] MEDS: CLOPIDOGREL BISULFATE 75 MG TAB PO SCH (10:32)
[2023-02-15] MEDS: CARVEDILOL 12.5 MG TAB PO SCH ×2 (10:32→21:44)
[2023-02-15] MEDS: ENOXAPARIN SOD 40 MG/0.4 ML SYRINGE SC SCH (10:33)
[2023-02-15] MEDS: INSULIN LANTUS (GLARGINE) 1 /0.01ml (100units/ml) SC SCH (10:38)
[2023-02-15] MEDS ORDERED: FURO20TA3 PO (10:49)
[2023-02-15] MEDS ORDERED: CILO100T PO (10:49)
[2023-02-15] MEDS ORDERED: ASPI1TAB91 PO (10:49)
[2023-02-15] MEDS ORDERED: POTA10TA51 PO (10:49)
[2023-02-15] MEDS: ASPIRIN-DIPYRIDAMOLE (25/200MG) CAPSULE PO SCH ×2 (11:37→22:14)
[2023-02-15 11:47] LABS: Hepatitis C Antibody Negative (Negative)
[2023-02-15 16:28] VITALS: BP 165/77
[2023-02-15] MEDS: PRAVASTATIN SODIUM 20 MG TAB PO SCH (21:44)
[2023-02-15 22:00] VITALS: BP 160/78
[2023-02-16 05:00] VITALS: BP_SYST 107; BP_SYST 142; BP_DIAS 43; BP_DIAS 67
[2023-02-16] MEDS: ACCU-CHEK COMFORT CURVE STRIP VI SCH ×2 (06:11→11:40)
[2023-02-16] MEDS: InsuLIN REG 1unit/0.01ml Soln (100units/ml) SC SCH ×2 (06:12→11:40)
[2023-02-16 08:17] VITALS: BP 148/76
[2023-02-16 09:00] VITALS: BP 148/76
[2023-02-16] MEDS: FOLIC ACID 1 MG TAB PO SCH (10:24)
[2023-02-16] MEDS: FERROUS SULFATE 325mg EC TAB PO SCH (10:24)
[2023-02-16] MEDS: CARVEDILOL 12.5 MG TAB PO SCH (10:25)
[2023-02-16] MEDS: CLOPIDOGREL BISULFATE 75 MG TAB PO SCH (10:25)
[2023-02-16] MEDS: LOSARTAN POTASSIUM 50 MG TAB PO SCH (10:25)
[2023-02-16] MEDS: amLODIPine BESYLATE 5 MG TAB PO SCH (10:26)
[2023-02-16] MEDS: ENOXAPARIN SOD 40 MG/0.4 ML SYRINGE SC SCH (10:26)
[2023-02-16] MEDS: CLOTRIMAZOLE 1 % CREAM 15GM TOP SCH (10:27)
[2023-02-16] MEDS: INSULIN LANTUS (GLARGINE) 1 /0.01ml (100units/ml) SC SCH (10:32)
[2023-02-16] MEDS: ASPIRIN-DIPYRIDAMOLE (25/200MG) CAPSULE PO SCH (10:41)
[2023-02-16] MEDS ORDERED: CLOT-53 EX (12:30)
[2023-02-16 13:00] VITALS: BP 144/60
[2023-02-16 13:26] VITALS: BP 148/76
== END 2023-02-16 15:15 | disposition home or self-care (01) | DRG 199 ==
LOC: ER 08:29 → TELE 13:57 → TELE-WESTW 02-14 23:00
PROVIDERS: ADMIT Nurse Practitioner Family; ATTEND Family Medicine
DX: I16.0 Hypertensive urgency (principal); E44.1 Mild protein-calorie malnutrition; G45.9 Transient cerebral ischemic attack, unspecified; E11.65 Type 2 diabetes mellitus with hyperglycemia; E78.5 Hyperlipidemia, unspecified; Z20.822 Contact with and (suspected) exposure to COVID-19; N48.1 Balanitis; I10 Essential (primary) hypertension; K21.9 Gastro-esophageal reflux disease without esophagitis; Z68.25 Body mass index [BMI] 25.0-25.9, adult; Z91.199 Patient's noncompliance with other medical treatment and regimen due to unspecified reason; Z86.73 Personal history of transient ischemic attack (TIA), and cerebral infarction without residual deficits
CPT/HCPCS: 36415; 71045; 80048; 80053; 81001; 82010; 82962; 83036; 83880; 84484; 85025; 86803; 87340; 87426; 87804; 93005; 96372; 96374; G0378; J1815; J3490

== ENCOUNTER → 2023-12-24 | Outpatient (CLI) | payer MEDICAID ==
[~2023-12-24] MED LIST changes: -AMLO-489 PO; +AMLO1TAB22 PO; +ASPI81TA28 PO; +CILO100T PO; +CLOT-53 EX; +FOLI-119 PO; -FOLI1TAB6 PO; +FURO20TA3 PO; -LOSA-39 PO; +LOSA100T58 PO; +POTA10TA51 PO; +SIMV10TA20 PO; -SIMV10TA84 PO
== END | disposition home or self-care (01) ==
LOC: Rad HDHVI 09:07
PROVIDERS: ATTEND Internal Medicine Cardiovascular Disease
DX: I11.9 Hypertensive heart disease without heart failure (principal); E78.5 Hyperlipidemia, unspecified
CPT/HCPCS: 93306

== ENCOUNTER → 2023-12-31 | Outpatient (CLI) | payer MEDICAID ==
[~2023-12-31] VITALS: Ht 160 cm; Wt 70.8 kg
[~2023-12-31] MED LIST changes: +ADENOSINE 59 MG in GIVE UN-DILUTED 0 ML IV ONE; +ADENOSINE 90 MG/30 ML INJ IV ONE
== END | disposition home or self-care (01) ==
LOC: Rad HDHVI 08:18
PROVIDERS: ATTEND Internal Medicine Cardiovascular Disease
DX: R06.02 Shortness of breath (principal); I10 Essential (primary) hypertension; E11.21 Type 2 diabetes mellitus with diabetic nephropathy; I73.9 Peripheral vascular disease, unspecified; R42 Dizziness and giddiness; E78.5 Hyperlipidemia, unspecified; Z82.49 Family history of ischemic heart disease and other diseases of the circulatory system
CPT/HCPCS: 78452; 93005; 96374; 96375; A9500; J0153

== ENCOUNTER → 2024-02-08 | Outpatient (CLI) | payer MEDICAID ==
[~2024-02-08] MED LIST changes: -ADENOSINE 59 MG in GIVE UN-DILUTED 0 ML IV ONE; -ADENOSINE 90 MG/30 ML INJ IV ONE; -CILO100T PO; +CILO100T3 PO; +IOHEXOL 350 MG/ML 100ML IJ ONE; +LOSA-535 PO; -LOSA100T58 PO; +POTA-36 PO; -POTA10TA51 PO
[2024-02-08 09:10] VITALS: BP 163/77; PULSE 79; RESP 16; O2SAT 96
[2024-02-08 09:30] VITALS: BP 170/79; PULSE 80; RESP 16; O2SAT 96
== END | disposition home or self-care (01) ==
LOC: Rad HDHVI 08:51
PROVIDERS: ATTEND Internal Medicine Cardiovascular Disease
DX: R51.9 Headache, unspecified (principal); G40.219 Localization-related (focal) (partial) symptomatic epilepsy and epileptic syndromes with complex partial seizures, intractable, without status epilepticus
CPT/HCPCS: 70470; G0463; Q9967

== ENCOUNTER → 2024-02-11 | Outpatient (CLI) | payer MEDICAID ==
[~2024-02-11] MED LIST changes: -IOHEXOL 350 MG/ML 100ML IJ ONE
== END | disposition home or self-care (01) ==
LOC: Rad HDHVI 09:08
PROVIDERS: ATTEND Internal Medicine Cardiovascular Disease
DX: I65.23 Occlusion and stenosis of bilateral carotid arteries (principal); I10 Essential (primary) hypertension; I73.9 Peripheral vascular disease, unspecified
CPT/HCPCS: 93880

== ENCOUNTER 2024-09-24 00:14 | Inpatient (IN) | payer MEDICAID ==
[2024-09-24] VITALS (25 sets, daily range): BP systolic 132–219; BP diastolic 73–126; PULSE 89–125; RESP 16–29; TEMP 98.8–100; O2SAT 88–97
[~2024-09-24] VITALS: Ht 160 cm; Wt 70.5 kg
[~2024-09-24 00:14] MED LIST changes: +AMLO1TAB23 PO; +BENA40TA71 PO; +CETI-120 PO; +CLOP75TA70 PO; +HYDR1CAP27 PO; +POTA1080 PO; +TAMS0.4C39 PO; +TIRZ12.5 SC
[2024-09-24] MEDS: NITROGLYCERIN 0.4 MG SL TAB SL ONE (00:46)
--- NOTE | 2024-09-24 00:57 | ED.PDOC ---
HPI Comments HPI: Poor Historian. 79-year-old male brought in by his granddaughter for evaluation of generalized witnessed x1 day with associated nonspecific lightheadedness. He had an episode of nausea and vomiting today nonbilious nonbloody. Family note that when his blood pressure is elevated he tends to lose urinary continence. Patient denies any other acute symptoms. Denies any abdominal pain or diarrhea. Patient was found with elevated blood pressure 201/100 with a heart rate of 100. Patient states compliance with all his medications including today. Past Medcial History: Diabetes, neuropathy, hyperlipidemia, hypertension Past Surgical History: Patient is on multiple medications including aspirin, Plavix, Lasix. REVIEW OF SYSTEMS: CONSTITUTIONAL: Denies acute: fever, diaphoresis, chills, HEAD: Denies acute: headache, photophobia Eyes: Denies acute: Double vision, vision loss, eye pain, eye discharge. EARS: Denies acute: tinnitus, hearing loss, ear discharge, ear pain, THROAT: Denies acute: sore throat, swelling, difficulty swallowing , pain with swallowing, change in voice. NECK: Denies acute: neck pain, neck swelling, stiff neck. HEART: Denies acute : chest pain, palpitations, LUNGS: Denies acute: SOB, wheezing, cough, hemoptysis ABDOMEN: Denies acute: abdominal pain, diarrhea, melena , hematemesis, hematochezia SKIN: Denies acute: rash, redness, lesions, itchiness. EXTREMITIES: Denies acute: calf pain, numbness, tingling, weakness, denies pain in extremity. Denies acute: Low back pain. Neuro: Denies acute: focal neurological deficit, motor or sensory focal neurological deficit, tremors, seizure like activity, confusion, change in mental status, cauda equina like symptoms. : Denies acute: dysuria, hematuria, flank pain, increase in urinary frequency. PSYCH: Denies acute: hallucination, suicidal ideation, homicidal ideation. PHYSICAL EXAM: General: no acute distress, awake and alert. Head: normocephalic, atraumatic. Neck: supple, trachea is midline, no swelling. Throat: Normal phonation. Eyes:, no erythema, no purulent discharge, no proptosis, no icterus. Heart: regular rate, regular rhythm, no significant murmur appreciated. Lungs: no apparent respiratory distress, Able to speak in full sentences. No wheezing, no rhonchi, no crackles. No stridors Clear to auscultation bilaterally. Abdomen: non tender to palpation, non distended, soft, no guarding, no rebound, + bowel sounds. Neuro: Awake, Alert, oriented to name, self, situation, follows commands GCS=15. Speech is normal. Skin: no petechia, no purpura, no cyanosis, non-pale, not jaundice. Lower extremities: --no - Pitting edema no deformity, no focal swelling, no calf TTP. Makes eye contact. moves all four extremities. Face: no apparent facial droop. No CVA tenderness to percussion bilaterally. Ambulating in the ED independently. Ears: Normal appearing TM b/l, Stroke: finger to nose cerebellar testing is intact. No pronator drift. 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 No nystagmus. No nuchal rigidity, Kernig's sign, Brudzinski's sign, no meningeal signs. Chief Complaint: General Weakness Time Seen by MD: 00:22 Primary Care Provider: SHARON Reviewed Notes: Nurses Notes, Medications, Allergies Allergies: Coded Allergies: NO KNOWN ALLERGIES (Unverified , 05/02/22) Home Meds Active Scripts Clotrimazole (Topical) (Antifungal) 1 % Cre, 1 % EX BID, #60 CRE Prov:DIEUDONNE DIGGS MD 02/16/23 Azithromycin (Zithromax) 1 Gm Pow, 1 PACK PO ONCE, #1 PACK Prov:THERESE CAGLE MD 10/13/22 Cephalexin ( Keflex 500) 500 Mg Cap, 1 CAP PO QID, #40 CAP Prov:AGUSTIN TIMMONS 06/28/22 Hydrocodone-Acetaminophen (Hydrocodone Bitartrate/AC 5-325 mg) 1 Tab Tab, 1 TAB PO TID PRN, #30 TAB Prov:DIEUDONNE DIGGS MD 02/25/22 Clopidogrel Bisulfate (Plavix) 75 Mg Tab, 1 TAB PO DAILY, #90 TAB 1 Refill Prov:DIEUDONNE DIGGS MD 02/25/22 Reported Medications Furosemide (Furosemide) 20 Mg Tab, 1 TAB PO DAILY, #90 TAB 1 Refill 02/15/23 Potassium Chloride (POTASSIUM CHLORIDE CR) 10 Meq Tb, 1 TAB PO DAILY, #30 TAB 5 Refills 02/15/23 Aspirin (Aspirin Ec) 81 Mg Tab, 81 MG PO DAILY, TAB 02/15/23 Cilostazol (Cilostazol) 100 Mg Tab, 100 MG PO BID for 30 Days, MG 02/15/23 Carvedilol (Carvedilol) 12.5 Mg Tab, 12.5 MG PO BID for 30 Days, MG 02/17/22 Ferrous Sulfate (Ferosul) 325 Mg Tab, 325 MG PO BID, TAB 02/17/22 Folic Acid (Folic Acid) 1 Mg Tab, 1 MG PO DAILY for 30 Days, MG 02/17/22 Amlodipine Besylate (Amlodipine Besylate) 5 Mg Tab, 10 MG PO DAILY for 30 Days, MG 02/17/22 Sitagliptin-Metformin Hcl (JANUMET XR) 1 Tab Tab, 1 TAB PO BID, TAB 08/10/21 Aspirin-Dipyridamole (Aspirin/Dipyridamole 25-200 mg) 1 Cap Cap, 1 CAP PO BID, CAP 08/10/21 Simvastatin (Simvastatin) 10 Mg Tab, 1 TAB PO DAILY, #90 TAB 3 Refills 08/10/21 Losartan Potassium (Losartan Potassium) 100 Mg Tab, 100 MG PO DAILY 08/09/21 Information Source: Patient, Relative Mode of Arrival: Ambulatory Past Medical History PAST MEDICAL HISTORY: Angina, DM, GERD, High Lipids, HTN, TIA Family History Family History: Reviewed,noncontributory to illness Social History Smoker: Non-Smoker Alcohol: Denies ETOH Use Drugs: Denies Drug Use Lives In: Home Was a procedure done? Was a procedure done?: No X-Ray, Labs, Meds, VS Vital Signs Date Time Temp Pulse Resp B/P (MAP) Pulse Ox O2 Delivery O2 Flow Rate FiO2 09/24/24 01:58 98.6 97 16 171/83 (112) 98 98.6 09/24/24 01:45 96 09/24/24 00:46 201/100 09/24/24 00:25 99.3 100 20 201/100 (133) 100 Lab Test 09/24/24 02:00 09/24/24 00:56 Range/Units Troponin I High Sensitivity Pending 63 *H </=54 ng/L White Blood Count 14.7 H 4.4-10.8 10^3/uL Red Blood Count 5.06 4.5-5.90 10^6/uL Hemoglobin 15.2 13.5-17.5 g/dL Hematocrit 43.6 41.0-53.0 % Mean Corpuscular Volume 86.3 80.0-100.0 fL Mean Corpuscular Hemoglobin 30.0 28.0-32.0 pg Mean Corpuscular Hemoglobin Concent 34.8 32.0-36.0 g/dL Red Cell Distribution Width 13.1 11.8-14.3 % Platelet Count 236 140-450 10^3/uL Mean Platelet Volume 9.3 6.9-10.8 fL Neutrophils (%) (Auto) 88.2 H 37.0-80.0 % Lymphocytes (%) (Auto) 5.8 L 10.0-50.0 % Monocytes (%) (Auto) 4.5 0.0-12.0 % Eosinophils (%) (Auto) 1.1 0.0-7.0 % Basophils (%) (Auto) 0.4 0.0-2.0 % Neutrophils # (Auto) 13.0 H 1.6-8.6 10 ^3/uL Lymphocytes # (Auto) 0.9 0.4-5.4 10 ^3/uL Monocytes # (Auto) 0.7 0-1.3 10 ^3/uL Eosinophils # (Auto) 0.2 0-0.8 10 ^3/uL Basophils # (Auto) 0.1 0-0.2 10 ^3/uL Nucleated Red Blood Cells 0.1 % Sodium Level 132 L 136-145 mmol/L Potassium Level 4.0 3.5-5.1 mmol/L Chloride Level 99 98-107 mmol/L Carbon Dioxide Level 24 20-31 mmol/L Anion Gap 9 5-15 Blood Urea Nitrogen 14 9-23 mg/dL Creatinine 1.00 0.700-1.30 mg/dL Glomerular Filtration Rate Calc 76 >90 mL/min BUN/Creatinine Ratio 14.0 10.0-20.0 Serum Glucose 334 H 74-106 mg/dL Lactic Acid Level 1.3 0.4-2.0 mmol/L Calcium Level 9.9 8.7-10.4 mg/dL Magnesium Level 1.7 1.6-2.6 mg/dL Total Bilirubin 0.7 0.2-1.0 mg/dL Aspartate Amino Transferase (AST) 12 L 13-40 U/L Alanine Aminotransferase (ALT) 18 7-40 U/L Alkaline Phosphatase 125 H 46-116 U/L B-Type Natriuretic Peptide 170.64 0-100 pg/mL Total Protein 7.6 5.7-8.2 g/dL Albumin 4.9 H 3.2-4.8 g/dL Lipase 46 12-53 U/L Current Medications Medications (Trade) Dose Ordered Sig/Qing Route Start Time Stop Time Status Last Admin Nitroglycerin (Ntrostat Sublingual) 0.4 mg ONCE ONCE SL 09/24/24 00:45 09/24/24 00:46 DC 09/24/24 00:46 [place] [id number] Ph: [phone] DIAGNOSTIC IMAGING Diagnostic Imaging Report : [id number] Signed PATIENT: ETHAN AVERY ACCT: [id number] UNIT: [id number] : 1945 LOC: ER ROOM / BED: / AGE / SEX: 79 / M ADM STATUS: REG ER SERVICE ORDERING PHYSICIAN: LARA RIVERA DO PROCEDURE(s): HWOCT - HEAD WITHOUT CONTRAST REASON: htn, weak ORDER NUMBER(s): [id number], ACCESSION NUMBER(s): [id number] EXAM: CT HEAD WITHOUT CONTRAST INDICATION: htn, weak TECHNIQUE: CT of the head without intravenous contrast. Radiation Dose : 1. Head: CT Dose: CTDI volume is 51.48 mGy. Dose-length product is 825.37 mGy*cm The dose indicators for CT are the volume Computed Tomography (CT) Dose Index (CTDIvol) and the Dose Length Product (DLP), and are measured in units of mGy a nd mGy-cm, respectively. These indicators are not patient dose, but values generated from the CT scanner acquisition factors. The report includes radiation exposure data for exposures received during this examination. COMPARISON: CT HEAD W WO CONTRAST on DOS: 02/08/24 FINDINGS: There is no evidence of acute intracranial hemorrhage, extra-axial collection, mass effect, midline shift, herniation or hydrocephalus. The ventricles, sulci and cisterns are age appropriate. The ko-white differentiation is intact. Patchy periventricular and subcortical white matter hypoattenuation is nonspecific but may be related to small vessel ischemic disease. The visualized paranasal sinuses and mastoid air cells are clear. The surrounding soft tissues and osseous structures are unremarkable. IMPRESSION: 1. No acute intracranial abnormality. Radiation optimization: All CT scans at this facility use at least one of these dose optimization techniques: automated exposure control mA and/or kV adjustment per patient size (includes targeted exams where dose is matched to clinical indication) or iterative reconstruction. ATED BY: JUDI LE MD DICTATED DATE/TIME: 09/24/24142 SIGNED BY: JUDI LE MD SIGNED DATE/TIME: 09/24/24142 CC: [place] [address] Ph: [phone] DIAGNOSTIC IMAGING Diagnostic Imaging Report : [id number] Signed PATIENT: ETHAN AVERY ACCT: [id number] UNIT: [id number] : 1945 LOC: ER ROOM / BED: / AGE / SEX: 79 / M ADM STATUS: REG ER SERVICE ORDERING PHYSICIAN: LARA RIVERA DO PROCEDURE(s): CXRP - CHEST PORTABLE REASON: htn, dizzy ORDER NUMBER(s): [id number], ACCESSION NUMBER(s): [id number] CHEST RADIOGRAPH Indication: htn, dizzy Technique: Single frontal view of the chest was obtained COMPARISON: XY CHEST PORTABLE on DOS: 02/13/23, CXRP on DOS: 10/13/22, CHEST PORTABLE on DOS: 10/13/22 FINDINGS: Lines and Tubes: None Lungs: Right perihilar opacity may reflect atelectasis or mild pneumonia. Pleura: No effusion. No pneumothorax. Cardiomediastinal contours: Unremarkable Bones: Unremarkable IMPRESSION: 1. Right perihilar opacity may reflect atelectasis or mild pneumonia. ATED BY: JUDI LE MD DICTATED DATE/TIME: 09/24/24129 SIGNED BY: JUDI LE MD SIGNED DATE/TIME: 09/24/24129 CC: Time of 1ST Reevaluation: 02:09 Reevaluation 1ST: Improved Patient Education/Counseling: Diagnosis, Treatment Family Education/Counseling: Diagnosis, Treatment Departure 1 Departure Time of Disposition: 01:42 Impression: Primary Impression: Hypertensive emergency Additional Impression: Elevated troponin Disposition: 09 ADMITTED INPATIENT Admit to: [facility] Condition: Guarded Discharged With: Self Critical Care Note Critical Care Time?: Yes (45 min-critical care time only) LARA RIVERA DO Sep 24, 2024 00:57
[2024-09-24 01:09] LABS: Basophils # (auto) 0.1 10 ^3/uL (0-0.2); Basophils % (auto) 0.4 % (0.0-2.0); Eosinophils # (auto) 0.2 10 ^3/uL (0-0.8); Eosinophils % (auto) 1.1 % (0.0-7.0); Hematocrit 43.6 % (41.0-53.0); Hemoglobin 15.2 g/dL (13.5-17.5); Lymphocytes # (auto) 0.9 10 ^3/uL (0.4-5.4); Lymphocytes % (auto) 5.8 % (10.0-50.0); Mean Corpuscular Hgb Conc. 34.8 g/dL (32.0-36.0); Mean Corpuscular Volume 86.3 fL (80.0-100.0); Monocytes # (auto) 0.7 10 ^3/uL (0-1.3); Monocytes % (auto) 4.5 % (0.0-12.0); Neutrophils % (auto) 88.2 % (37.0-80.0); Nucleated Red Blood Cells % 0.1 %; Platelet Count (auto) 236 10^3/uL (140-450); Red Blood Cells 5.06 10^6/uL (4.5-5.90); Red Cell Distribution Width 13.1 % (11.8-14.3); White Blood Cell 14.7 10^3/uL (4.4-10.8)
[2024-09-24 01:26] LABS: Alanine Aminotransferase 18 U/L (7-40); Anion Gap 9 (5-15); Blood Urea Nitrogen 14 mg/dL (9-23); Calcium 9.9 mg/dL (8.7-10.4); Carbon Dioxide 24 mmol/L (20-31); Chloride 99 mmol/L (98-107); Lipase 46 U/L (12-53); Magnesium 1.7 mg/dL (1.6-2.6)
[2024-09-24 01:27] LABS: Bilirubin, Total 0.7 mg/dL (0.2-1.0); Total Protein 7.6 g/dL (5.7-8.2)
[2024-09-24 01:32] LABS: Albumin 4.9 g/dL (3.2-4.8); Alkaline Phosphatase 125 U/L (46-116); Aspartate Aminotransferase 12 U/L (13-40); Glucose 334 mg/dL (74-106); Sodium 132 mmol/L (136-145)
--- NOTE | 2024-09-24 01:32 | DVH ---
CHEST RADIOGRAPH Indication: htn, dizzy Technique: Single frontal view of the chest was obtained COMPARISON: XY CHEST PORTABLE on DOS: 02/13/23, CXRP on DOS: 10/13/22, CHEST PORTABLE on DOS: 10/13/22 FINDINGS: Lines and Tubes: None Lungs: Right perihilar opacity may reflect atelectasis or mild pneumonia. Pleura: No effusion. No pneumothorax. Cardiomediastinal contours: Unremarkable Bones: Unremarkable IMPRESSION: 1. Right perihilar opacity may reflect atelectasis or mild pneumonia.
--- NOTE | 2024-09-24 01:46 | DVH ---
EXAM: CT HEAD WITHOUT CONTRAST INDICATION: htn, weak TECHNIQUE: CT of the head without intravenous contrast. Radiation Dose : 1. Head: CT Dose: CTDI volume is 51.48 mGy. Dose-length product is 825.37 mGy*cm The dose indicators for CT are the volume Computed Tomography (CT) Dose Index (CTDIvol) and the Dose Length Product (DLP), and are measured in units of mGy and mGy-cm, respectively. These indicators are not patient dose, but values generated from the CT scanner acquisition factors. The report includes radiation exposure data for exposures received during this examination. COMPARISON: CT HEAD W WO CONTRAST on DOS: 02/08/24 FINDINGS: There is no evidence of acute intracranial hemorrhage, extra-axial collection, mass effect, midline s hift, herniation or hydrocephalus. The ventricles, sulci and cisterns are age appropriate. The ko-white differentiation is intact. Patchy periventricular and subcortical white matter hypoattenuation is nonspecific but may be related to small vessel ischemic disease. The visualized paranasal sinuses and mastoid air cells are clear. The surrounding soft tissues and osseous structures are unremarkable. IMPRESSION: 1. No acute intracranial abnormality. Radiation optimization: All CT scans at this facility use at least one of these dose optimization elsa hniques: automated exposure control mA and/or kV adjustment per patient size (includes targeted exam s where dose is matched to clinical indication) or iterative reconstruction.
[2024-09-24] MEDS: InsuLIN REG 1unit/0.01ml Soln (100units/ml) IV ONE (03:02)
[2024-09-24] MEDS: cefTRIAXone 1GM/50ML D5W 50 ML IV ONE (03:05)
[2024-09-24] MEDS: ASPirin 325 MG TAB PO ONE (03:10)
[2024-09-24] MEDS ORDERED: ALBUTEROL SULF 2.5 MG/0.5ML(0.5%) NEB SOLN NEB PRN (04:15)
[2024-09-24] MEDS ORDERED: DEXTROSE (50%) 50ML SYRG IV PRN ×2 (04:15→10:15)
[2024-09-24] MEDS ORDERED: hydrALAZINE HCL 20 MG/ML VL IV PRN (04:15)
[2024-09-24] MEDS ORDERED: ONDANSETRON HCL 4 MG/2 ML VIAL IV PRN ×2 (04:15→21:45)
[2024-09-24] MEDS: LABETALOL HCL 20 MG/4 ML VL IV ONE (04:32)
[2024-09-24 04:55] LABS: Anion Gap 9 (5-15); Calcium 9.9 mg/dL (8.7-10.4); Carbon Dioxide 25 mmol/L (20-31)
[2024-09-24 05:00] LABS: BUN/Creatinine Ratio 13.1 (10.0-20.0); Blood Urea Nitrogen 14 mg/dL (9-23)
[2024-09-24 05:04] LABS: Chloride 98 mmol/L (98-107); Glucose 316 mg/dL (74-106); Potassium 3.7 mmol/L (3.5-5.1); Sodium 132 mmol/L (136-145)
--- NOTE | 2024-09-24 05:12 | DVHHP2 ---
History of Present Illness Reason for Visit: Generalized weakness History of Present Illness 79-year-old male presents for evaluation of generalized weakness. Patient presents with a one day history of generalized weakness and dizziness. Patient also presents with complaints of elevated blood pressure. Patient reports being compliant with his medications. On arrival patient's blood pressure was greater than 200 platelet he denies chest pain or shortness for breath. No other acute complaints reported. Past Medical History Dyslipidemia, hypertension, peripheral neuropathy diabetes mellitus Past Surgical History None Family History Noncontributory Smoke: No ALCOHOL: none Drugs: None Lives: with Family Review of Systems Review of Systems Review of systems are currently negative otherwise addressed in HPI. Allergies: Coded Allergies: NO KNOWN ALLERGIES (Unverified , 05/02/22) Medications Current Medications Medications Dose Ordered Sig/Qing Route Start Time Stop Time Status Last Admin Dose Admin Amlodipine Besylate 10 mg DAILY PO 09/24/24 10:00 Losartan Potassium 100 mg DAILY PO 09/24/24 10:00 Carvedilol 12.5 mg Q12HR PO 09/24/24 10:00 Furosemide 20 mg DAILY PO 09/24/24 10:00 Atorvastatin Calcium 10 mg HS PO 09/24/24 22:00 Clopidogrel Bisulfate 75 mg DAILY PO 09/24/24 10:00 Tamsulosin HCl 0.4 mg QPM PO 09/24/24 18:00 Hydralazine HCl 10 mg Q6HP PRN IV 09/24/24 04:15 Azithromycin 250 ml @ 125 mls/hr DAILY IV 09/24/24 10:00 UNV Albuterol 2.5 mg Q6HPRN PRN NEB 09/24/24 04:15 Diagnostic Test (Pha) 1 strip Q6HR 09/24/24 06:00 Insulin Human Regular Q6HR SC 09/24/24 06:00 Dextrose 50 ml UD PRN IV 09/24/24 04:15 Ondansetron HCl 4 mg Q4HP PRN IV 09/24/24 04:15 Enoxaparin Sodium 40 mg DAILY SC 09/24/24 10:00 Acetaminophen 650 mg Q6HP PRN PO 09/24/24 04:15 Exam Vital Signs Vital Signs Date Time Temp Pulse Resp B/P (MAP) Pulse Ox O2 Delivery O2 Flow Rate FiO2 09/24/24 05:09 93 18 97 Room Air* 0 21 09/24/24 04:32 141/70 12/4/24 04:16 98.8 98.8 Exam Gen: 79-year-old male in mild distress Skin: Warm, dry, normal color and texture, no rash. HEENT: Normocephalic atraumatic, mucous membranes moist and pink. Neck: Cervical and supraclavicular nodes normal without enlargement, trachea is midline, thyroid gland is normal without masses. Pulmonary: Clear to auscultation and percussion bilaterally. Cardiac: Regular rate and rhythm. No murmur Abdomen: Soft, nontender, nondistended, bowel sounds present all 4 quadrants, no guarding, no rigidity, no organomegaly. Extremities: No cyanosis, clubbing, no edema Neuro: Cranial nerves II through XII grossly intact, normal affect and speech, no focal motor deficits. Labs/Xrays ORDERING PHYSICIAN: CARLOS SCHNEIDER MD PROCEDURE(s): ECIDC - ECHO 2D MODE CARDIAC DOP REASON: I10,E78.5 ORDER NUMBER(s): [id number], ACCESSION NUMBER(s): [id number] APPROVED REPORT EXAM: Two-dimensional and M-mode echocardiogram with Doppler and color Doppler. DIMENSIONS LVDd 4.1 (3.8-5.7cm) LA (2D) 4.3 (1.9-4.0cm) Aortic Root 3.4 (2.0- 3.7cm) LVDs 3.0 (2.5-4.0cm) LA (MM) (1.9-4.0cm) Aortic Cusp Exc 1.4 (1.5- 2.0cm) EF (%) 54.9 (55-70%) Rt. Atrium 4.4 (1.9-4.0cm) Asc. Aorta 3.0 cm IVSd 1.5 (0.7-1.1cm) RV (D) 3.6 (1.8-2.4cm) PWd 1.5 (0.7-1.1cm) Mitral Valve Mitral Mitral Stenosis E wave 1.16m/s MV Mean GR. mmHg A wave 1.30m/s MV Peak GR. 24mmHg E/A ratio 0.9 2D MVA cm2 DECEL Time 177ms PRESS 1/2 Time ms Aortic Valve Aortic Valve Aortic Stenosis V1 1.00m/s AO Mean GR. 6mmHg V2 1.66m/s AO Peak GR. 11mmHg Pulmonic Valve V2 1.03m/s Tricuspid Valve TR Velocity 1.94m/s RVSP 21mmHg LEFT VENTRICLE The Ejection Fraction is 50-55%. ATRIA The left atrium is mildly dilated. The right atrium is mildly dilated. MITRAL VALVE The mitral valve is normal in structure and function. Mitral regurgitation is trace. PULMONIC VALVE The pulmonic valve is not well visualized. There is trace pulmonic valvular regurgitation. TRICUSPID VALVE The tricuspid valve is grossly normal. There is trace tricuspid regurgitation. AORTIC VALVE The aortic valve opens well. There is trace aortic regurgitation. GREAT VESSELS The aortic root is normal size. PERICARDIAL EFFUSION There is no pericardial effusion. Conclusion LAE OSCAR CONC LVH EF >55% ORDERING PHYSICIAN: LARA RIVERA DO PROCEDURE(s): CXRP - CHEST PORTABLE REASON: htn, dizzy ORDER NUMBER(s): [id number], ACCESSION NUMBER(s): [id number] CHEST RADIOGRAPH Indication: htn, dizzy Technique: Single frontal view of the chest was obtained COMPARISON: XY CHEST PORTABLE on DOS: 02/13/23, CXRP on DOS: 10/13/22, CHEST PORTABLE on DOS: 10/13/22 FINDINGS: Lines and Tubes: None Lungs: Right perihilar opacity may reflect atelectasis or mild pneumonia. Pleura: No effusion. No pneumothorax. Cardiomediastinal contours: Unremarkable Bones: Unremarkable IMPRESSION: 1. Right perihilar opacity may reflect atelectasis or mild pneumonia. RING PHYSICIAN: LARA RIVERA DO PROCEDURE(s): HWOCT - HEAD WITHOUT CONTRAST REASON: htn, weak ORDER NUMBER(s): [id number], ACCESSION NUMBER(s): [id number] EXAM: CT HEAD WITHOUT CONTRAST INDICATION: htn, weak TECHNIQUE: CT of the head without intravenous contrast. Radiation Dose : 1. Head: CT Dose: CTDI volume is 51.48 mGy. Dose-length product is 825.37 mGy*cm The dose indicators for CT are the volume Computed Tomography (CT) Dose Index (CTDIvol) and the Dose Length Product (DLP), and are measured in units of mGy and mGy-cm, respectively. These indicators are not patient dose, but values generated from the CT scanner acquisition factors. The report includes radiation exposure data for exposures received during this examination. COMPARISON: CT HEAD W WO CONTRAST on DOS: 02/08/24 FINDINGS: There is no evidence of acute intracranial hemorrhage, extra-axial collection, mass effect, midline shift, herniation or hydrocephalus. The ventricles, sulci and cisterns are age appropriate. The ko-white differentiation is intact. Patchy periventricular and subcortical white matter hypoattenuation is nonspecific but may be related to small vessel ischemic disease. The visualized paranasal sinuses and mastoid air cells are clear. The surrounding soft tissues and osseous structures are unremarkable. IMPRESSION: 1. No acute intracranial abnormality. Radiation optimization: All CT scans at this facility use at least one of these dose optimization techniques: automated exposure control mA and/or kV adjustment per patient size (includes targeted exams where dose is matched to clinical indication) or iterative reconstruction. ATED BY: JUDI LE MD DICTATED DATE/TIME: 09/24/24 0143 Labs Test 09/24/24 03:50 09/24/24 02:23 09/24/24 00:56 Range/Units Sodium Level 132 L 136-145 mmol/L Potassium Level 3.7 3.5-5.1 mmol/L Chloride Level 98 98-107 mmol/L Carbon Dioxide Level 25 20-31 mmol/L Anion Gap 9 5-15 Blood Urea Nitrogen 14 9-23 mg/dL Creatinine 1.07 0.700-1.30 mg/dL Glomerular Filtration Rate Calc 70 >90 mL/min BUN/Creatinine Ratio 13.1 10.0-20.0 Serum Glucose 316 H 74-106 mg/dL Calcium Level 9.9 8.7-10.4 mg/dL Troponin I High Sensitivity 64 *H </=54 ng/L POC Glucose 396 H 70-106 mg/dl White Blood Count 14.7 H 4.4-10.8 10^3/uL Red Blood Count 5.06 4.5-5.90 10^6/uL Hemoglobin 15.2 13.5-17.5 g/dL Hematocrit 43.6 41.0-53.0 % Mean Corpuscular Volume 86.3 80.0-100.0 fL Mean Corpuscular Hemoglobin 30.0 28.0-32.0 pg Mean Corpuscular Hemoglobin Concent 34.8 32.0-36.0 g/dL Red Cell Distribution Width 13.1 11.8-14.3 % Platelet Count 236 140-450 10^3/uL Mean Platelet Volume 9.3 6.9-10.8 fL Neutrophils (%) (Auto) 88.2 H 37.0-80.0 % Lymphocytes (%) (Auto) 5.8 L 10.0-50.0 % Monocytes (%) (Auto) 4.5 0.0-12.0 % Eosinophils (%) (Auto) 1.1 0.0-7.0 % Basophils (%) (Auto) 0.4 0.0-2.0 % Neutrophils # (Auto) 13.0 H 1.6-8.6 10 ^3/uL Lymphocytes # (Auto) 0.9 0.4-5.4 10 ^3/uL Monocytes # (Auto) 0.7 0-1.3 10 ^3/uL Eosinophils # (Auto) 0.2 0-0.8 10 ^3/uL Basophils # (Auto) 0.1 0-0.2 10 ^3/uL Nucleated Red Blood Cells 0.1 % Lactic Acid Level 1.3 0.4-2.0 mmol/L Magnesium Level 1.7 1.6-2.6 mg/dL Total Bilirubin 0.7 0.2-1.0 mg/dL Aspartate Amino Transferase (AST) 12 L 13-40 U/L Alanine Aminotransferase (ALT) 18 7-40 U/L Alkaline Phosphatase 125 H 46-116 U/L B-Type Natriuretic Peptide 170.64 0-100 pg/mL Total Protein 7.6 5.7-8.2 g/dL Albumin 4.9 H 3.2-4.8 g/dL Lipase 46 12-53 U/L Assessment/Plan Assessment/Plan Assessment Hypertensive urgency Uncontrolled diabetes mellitus Hypertensive encephalopathy Mild troponin elevation, demand ischemia Plan Admit the patient to telemetry to the hospitalist Cardiology consultation Resume home medications As needed antihypertensives Continue treatment per orders. Plan discussed with: Patient My Orders Orders - RUSSELL,MARGO AGACNP Procedure Category Date Status Time Amlodipine Tablet PHA 09/24/24 In Process (Norvasc Tablet) 10:00 Losartan Tablet PHA 09/24/24 In Process (Cozaar Tablet) 10:00 Carvedilol Tablet PHA 09/24/24 In Process (Coreg Tablet) 10:00 Furosemide Tablet PHA 09/24/24 In Process (Lasix Tablet) 10:00 Atorvastatin (Lipitor) PHA 09/24/24 In Process 22:00 Clopidogrel Bisulfate PHA 09/24/24 In Process (Plavix) 10:00 Tamsulosin PHA 09/24/24 In Process Hydrochloride (Flomax) 18:00 Hydralazine Injection PHA 09/24/24 In Process (Apresoline Inject 04:15 Azithromycin 500mg/ PHA 09/24/24 Pending 250ml (Zithromax 50 10:00 Albuterol Medneb PHA 09/24/24 In Process (Ventolin Medneb) 04:15 * Cardiology Consult CONS 09/24/24 Transmitted 04:05 Glucose Blood PHA 09/24/24 In Process (Accu-Chek Comfort 06:00 Insulin R (Human) PHA 09/24/24 In Process (Insulin R) 06:00 Dextrose 50% Syringe PHA 09/24/24 In Process 04:15 Admit ADMIT 09/24/24 Transmitted 04:05 Ondansetron Hcl PHA 09/24/24 In Process (Zofran) 04:15 Enoxaparin Sodium PHA 09/24/24 In Process (Lovenox) 10:00 Cardiac DIET 09/24/24 Transmitted Diet-2gna,Lofat,Lochol Breakfast Condition: Stable JERI 09/24/24 In Process 04:05 Acetaminophen Tablet PHA 09/24/24 In Process (Tylenol Tablet) 04:15 Bedrest With Bathroom JERI 09/24/24 In Process Privileg 04:05 Date of Service: Sep 24, 2024 Billing Provider: FAUSTINO RUSSELL Common Visit Codes: [id number] INP/OBS CARE (HIGH) FAUSTINO RUSSELL Sep 24, 2024 05:12
[2024-09-24] MEDS: ACCU-CHEK COMFORT CURVE STRIP VI SCH ×2 (06:18→12:10)
[2024-09-24] MEDS: InsuLIN REG 1unit/0.01ml Soln (100units/ml) SC SCH ×2 (06:21→12:26)
--- NOTE | 2024-09-24 06:39 | ECG ---
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
--- NOTE | 2024-09-24 06:39 | ECG ---
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
--- NOTE | 2024-09-24 06:39 | ECG ---
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
[2024-09-24 07:04] LABS: Urine Bacteria None Seen /hpf (None Seen)
[2024-09-24 07:16] LABS: Urine Blood Negative /uL (Negative); Urine Clarity Clear (Clear); Urine Color Yellow (Yellow); Urine Protein, UAD TRACE (Negative); Urine Specific Gravity 1.019 (1.001-1.035); Urine Urobilinogen Normal (Negative); Urine WBC 3 /hpf (0 - 3); Urine pH 5.5 (5.0-9.0)
[2024-09-24 11:04] LABS: LDL Cholesterol 80 mg/dL (< 100)
[2024-09-24 11:05] LABS: Cholesterol 169 mg/dL (< 200)
[2024-09-24] MEDS: amLODIPine BESYLATE 5 MG TAB PO SCH (11:06)
[2024-09-24] MEDS: CLOPIDOGREL BISULFATE 75 MG TAB PO SCH (11:06)
[2024-09-24] MEDS: LOSARTAN POTASSIUM 50 MG TAB PO SCH (11:06)
[2024-09-24 11:17] LABS: HDL Cholesterol 39 mg/dL (40-59); Triglycerides 269 mg/dL (< 150)
--- NOTE | 2024-09-24 11:22 | DVHPN2 ---
Assessment/Plan Assessment/Plan Progress note Subjective 79 M admitted for hypertensive urgency Objective Physical exam Alert, oriented Frail PERRLA No JVD Clear breath sounds bilaterally S1-S2 regular rate and rhythm no murmur Abdomen soft nontender, no organomegaly Moving all four extremities No lower extremity edema Lab WBC 14 Sodium 132 Glucose 316 Troponin 64 EKG Repolarization abnormalities Imaging CT head no hydrocephalus, age-appropriate Chest x-ray clear Assessment and plan viral URI hypertensive urgency hypertensive heart disease chronic diastolic heart failure heart failure with preserved ejection fraction chronic PAD on DAPT NIDDM possible spinal stenosis Type 2 MD demand ischemia Hyponatremia BPH frailty in the elderly supportive treatment resume home coreg, amlodipine, losartan PO lasix, net 0 basal bolus insulin with sliding scale, fs achs avoid IV antihypertensive c/w DAPT c/w flomax fall precaution aspiration precaution delirium precaution Replete electrolytes Diet regular DVT prophylaxis Plan discussed with: Patient My Orders Orders - MARGARITA HILLS MD Procedure Category Date Status Time Lipid Panel LAB 09/24/24 In Process 10:11 Insulin Lantus PHA 09/25/24 In Process (Glargine) (Lantus) 10:00 Insulin R (Human) PHA 09/24/24 In Process (Insulin R) 11:30 Dextrose 50% Syringe PHA 09/24/24 In Process 10:15 Glucose Blood PHA 09/24/24 In Process (Accu-Chek Comfort 11:30 Date of Service: Sep 24, 2024 Billing Provider: MARGARITA HILLS MD Common Visit Codes: [id number] INP/OBS CARE(HIGH) MARGARITA HILLS MD Sep 24, 2024 11:22
[2024-09-24] MEDS: FUROSEMIDE 20 MG TAB PO SCH (12:07)
[2024-09-24] MEDS: CARVEDILOL 12.5 MG TAB PO SCH (12:07)
[2024-09-24] MEDS: INSULIN LANTUS (GLARGINE) 1 /0.01ml (100units/ml) SC ONE (12:08)
[2024-09-24] MEDS: AZITHROMYCIN 500MG/ 250ML 250 ML IV SCH (12:16)
[2024-09-24] MEDS: ENOXAPARIN SOD 40 MG/0.4 ML SYRINGE SC SCH (12:25)
[2024-09-24] MEDS: ACETAMINOPHEN 325 MG TAB PO PRN (12:26)
[2024-09-24] MEDS: cloNIDine HCL 0.1 MG TAB PO ONE (17:50)
[2024-09-24] MEDS: ESMOLOL HCL-NS 10MG/ML 250 ML IV SCH (18:50)
--- NOTE | 2024-09-24 18:54 | DVH ---
Exam: CT STROKE CTH History: CONFUSION/ REPORTS INABILITY TO COMMUNICATE PROPERLY Technique: [address] images through the posterior fossa and the supratentorial compart ment were acquired without contrast and imaged using soft tissue and bone algorithms. RADIATION DOSE: DLP 877.64 mGy.cm; CTDI vol 54.75 mGy. Comparison: CT HEAD WITHOUT CONTRAST on DOS: 09/24/24 Findings: There is no evidence of an intracranial hemorrhage, acute large vessel infarct, mass effect, or midli ne shift. There is mild cerebral atrophy. Moderate calcification of the carotid siphons. The calvarium, orbits, paranasal sinuses, sella, middle ears, and mastoids are unremarkable. The superficial soft tissues are within normal limits. Impression: 1. No acute intracranial abnormality or significant interval change from 09/24/2024 at 1:11 AM.
[2024-09-24 19:09] LABS: COVID19 ANTIGEN SOFIA FIA NEGATIVE (NEGATIVE); Rapid Influenza A Negative (Negative); Rapid Influenza B Negative (Negative)
[2024-09-24] MEDS: TAMSULOSIN HYDROCHLORIDE 0.4 MG CAP PO SCH (20:09)
[2024-09-24] MEDS: ATORVASTATIN 20 MG TAB PO SCH (22:00)
[2024-09-24 22:20] LABS: Base Excess 0.2 mmol/L (-2.0-3.0)
[2024-09-25] VITALS (102 sets, daily range): BP systolic 104–205; BP diastolic 55–93; PULSE 83–109; RESP 10–36; TEMP 98.3–100; O2SAT 88–99
[2024-09-25 05:15] LABS: Basophils # (auto) 0 10 ^3/uL (0-0.2); Basophils % (auto) 0.3 % (0.0-2.0); Eosinophils # (auto) 0 10 ^3/uL (0-0.8); Eosinophils % (auto) 0.1 % (0.0-7.0); Hematocrit 43.7 % (41.0-53.0); Hemoglobin 15.2 g/dL (13.5-17.5); Lymphocytes # (auto) 0.7 10 ^3/uL (0.4-5.4); Lymphocytes % (auto) 6.5 % (10.0-50.0); Mean Corpuscular Hemoglobin 30.1 pg (28.0-32.0); Mean Corpuscular Hgb Conc. 34.7 g/dL (32.0-36.0); Mean Corpuscular Volume 86.7 fL (80.0-100.0); Monocytes # (auto) 0.6 10 ^3/uL (0-1.3); Monocytes % (auto) 5.5 % (0.0-12.0); Neutrophils # (auto) 8.8 10 ^3/uL (1.6-8.6); Neutrophils % (auto) 87.6 % (37.0-80.0); Platelet Count (auto) 231 10^3/uL (140-450); Red Blood Cells 5.04 10^6/uL (4.5-5.90); Red Cell Distribution Width 13.3 % (11.8-14.3)
[2024-09-25 05:27] LABS: Alanine Aminotransferase 22 U/L (7-40); Albumin 4.3 g/dL (3.2-4.8); Anion Gap 9 (5-15); Aspartate Aminotransferase 15 U/L (13-40); BUN/Creatinine Ratio 13.5 (10.0-20.0); Bilirubin, Total 0.6 mg/dL (0.2-1.0); Blood Urea Nitrogen 17 mg/dL (9-23); Calcium 9.9 mg/dL (8.7-10.4); Carbon Dioxide 26 mmol/L (20-31)
[2024-09-25 05:28] LABS: Total Protein 7.1 g/dL (5.7-8.2)
[2024-09-25 05:33] LABS: Alkaline Phosphatase 117 U/L (46-116); Chloride 98 mmol/L (98-107); Glucose 202 mg/dL (74-106); Sodium 133 mmol/L (136-145)
--- NOTE | 2024-09-25 09:48 | DVHPN2 ---
Progress Note - Dictate Date Seen: Sep 24, 2024 Medical Necessity Reason Pt with a Central, PICC or Fol: No Subjective PT WELL KNOWN TO ME WITH SS COMPLEX OF FATIGUE WEAKNESS ACCELERATED HTN PMH; DIABETES VASCULOPATHY PAD OCCLUDED LEFT TIBIAL PERONEAL TRUCK WITH COLLATERALIZATION NEUROPATHY NEPHROPATHY PROTEINURIA HTN ECHO LVH DIASTOLIC DYSFUNCTION LEUKOCYTOSIS NOW BACK TO BASELINE vital signs Vital Sign Date Time Temp Pulse Resp B/P (MAP) Pulse Ox O2 Delivery O2 Flow Rate FiO2 09/25/24 08:52 93 Nasal Cannula 3.0 09/25/24 08:52 32 09/25/24 08:00 97 24 09/25/24 06:45 153/69 (97) 09/25/24 04:00 99.6 99.6 Total Intake and Output 09/24/24 09/24/24 09/25/24 15:00 23:00 07:00 Intake Total 250 ml 327.825 ml 126.900 ml Output Total 400 ml 800 ml Balance 250 ml -72.175 ml -673.100 ml medications Current Medications Medications Dose Ordered Sig/Qing Route Start Time Stop Time Status Last Admin Dose Admin Amlodipine Besylate 10 mg DAILY PO 09/24/24 10:00 09/24/24 11:06 10 MG Losartan Potassium 100 mg DAILY PO 09/24/24 10:00 09/24/24 11:06 100 MG Carvedilol 12.5 mg Q12HR PO 09/24/24 10:00 09/24/24 12:07 12.5 MG Furosemide 20 mg DAILY PO 09/24/24 10:00 09/24/24 12:07 20 MG Atorvastatin Calcium 10 mg HS PO 09/24/24 22:00 Clopidogrel Bisulfate 75 mg DAILY PO 09/24/24 10:00 09/24/24 11:06 75 MG Tamsulosin HCl 0.4 mg QPM PO 09/24/24 18:00 Azithromycin 250 ml @ 125 mls/hr DAILY IV 09/24/24 10:00 09/24/24 12:16 125 MLS/HR Albuterol 2.5 mg Q6HPRN PRN NEB 09/24/24 04:15 Enoxaparin Sodium 40 mg DAILY SC 09/24/24 10:00 09/24/24 12:25 40 MG Acetaminophen 650 mg Q6HP PRN PO 09/24/24 04:15 09/24/24 12:26 650 MG Diagnostic Test (Pha) 1 strip ACHS 09/24/24 11:30 09/25/24 06:07 1 STRIP Insulin Human Regular ACHS SC 09/24/24 11:30 09/25/24 06:08 4 UNITS Dextrose 50 ml UD PRN IV 09/24/24 10:15 Esmolol HCl 250 ml @ 0 mls/hr Q0M IV 09/24/24 18:00 09/24/24 22:11 84.6 MLS/HR Ondansetron HCl 4 mg Q4HPRN PRN IV 09/24/24 21:45 Insulin Glargine 9 units DAILY@1000 SC 09/25/24 10:00 UNV laboratory and microbiology Laboratory Tests 09/25/24 04:47 Test 09/25/24 04:47 Range/Units Serum Glucose 202 #H 74-106 mg/dL Problem List SS COMPLEX OF FATIGUE WEAKNESS ACCELERATED HTN PMH; DIABETES VASCULOPATHY PAD OCCLUDED LEFT TIBIAL PERONEAL TRUCK WITH COLLATERALIZATION NEUROPATHY NEPHROPATHY PROTEINURIA HTN ECHO LVH DIASTOLIC DYSFUNCTION LEUKOCYTOSIS NOW BACK TO BASELINE PSEUDO HYPONATREMIA CORRECTED 138 Assessment/Plan ADD ENTRESTO DC LOSARTAN Plan discussed with: Patient CARLOS SCHNEIDER MD Sep 25, 2024 09:48
[2024-09-25] MEDS: INSULIN LANTUS (GLARGINE) 1 /0.01ml (100units/ml) SC SCH (10:00)
[2024-09-25] MEDS ORDERED: SACUBITRIL-VALSARTAN 24mg/26mg TAB PO SCH (10:00)
[2024-09-25] MEDS ORDERED: INSULIN LANTUS (GLARGINE) 1 /0.01ml (100units/ml) SC SCH (10:00)
--- NOTE | 2024-09-25 12:23 | DVHPN2 ---
Assessment/Plan Assessment/Plan Progress note Subjective 79 M admitted for hypertensive urgency patient seen by me today during rounds hypertensive with ams overnight, started on esmolol drip, CT head without changes. In the morning off esmolol, neurologically intact. seen by cardio, meds adjusted, esmolol standby, BP still labile, will keep between 150-180 while PO meds titrated up. transfered to RODERICK Objective Physical exam Alert, oriented x3 Frail PERRLA CN II-XII intact face symmetric, tongue midline clear breath sounds bilaterally S1 S2 RRR no murmur abdomen soft, nontender, no organomegally equal strength bilaterally in upper and lower extremity sensory intact to touch in bilateral upper and lower extremity Lab WBC 14 Sodium 132 Glucose 316 Troponin 64 EKG Repolarization abnormalities Imaging CT head no hydrocephalus, age-appropriate Repeat CT with no significant interval Chest x-ray clear Point of care ultrasound done today and interpreted by me Cardiac: No pericardial effusion, grossly normal systolic function, grossly normal valves, grossly normal heart chambers, IVC less than 1 cm Lung: No B-lines, no pleural effusion Assessment and plan viral URI hypertensive emergency hypertensive heart disease chronic diastolic heart failure heart failure with preserved ejection fraction chronic PAD on DAPT NIDDM possible spinal stenosis Type 2 AR demand ischemia Hyponatremia BPH frailty in the elderly Admit to step-down supportive treatment resume home coreg, amlodipine Losartan switch to Entresto per cardio PO lasix, net 0 basal bolus insulin with sliding scale, fs achs avoid IV push antihypertensive A small drip standby, maintain SBP between 150-180 c/w DAPT c/w flomax fall precaution aspiration precaution delirium precaution Neuro checks per protocol Send TSH Replete electrolytes Diet regular DVT prophylaxis 92 minutes critical care time spent on this patient including evaluation, chart review, formulating plan and communication with team, excluding any procedures or point of care imaging Plan discussed with: Patient My Orders Orders - MARGARITA HILLS MD Procedure Category Date Status Time Insulin Lantus PHA 09/25/24 In Process (Glargine) (Lantus) 10:00 Brain Head Wo Contrast MRI 09/25/24 Logged 09:27 Electrocardigram EKG 09/25/24 Logged 09:29 Neuro Checks Per Unit ORDERS 09/25/24 Transmitted Protocol 09:30 Date of Service: Sep 25, 2024 Billing Provider: MARGARITA HILLS MD Common Visit Codes: [id number] INP/OBS CARE(HIGH), [id number] CARE 30-74 MIN, [id number] CARE-EACH +30MIN, PROCEDURE ONLY (Cardiac point of care ultrasound [id number]) MARGARITA HILLS MD Sep 25, 2024 12:23
--- NOTE | 2024-09-25 13:28 | DVH ---
EXAMINATION: MRI BRAIN HEAD WO CONTRAST INDICATION: deficit COMPARISON: CT HEAD WITHOUT CONTRAST on DOS: 09/24/24, CT HEAD W WO CONTRAST on DOS: 02/08/24 TECHNIQUE: Multiplanar, multisequence magnetic resonance imaging of the brain was performed without the use of i ntravenous contrast. FINDINGS: There is no restricted diffusion. There are mild chronic small-vessel supratentorial white matter isc hemic changes. There is a small chronic infarct in the left cerebellum with associated encephalomalac ia and mild gliosis. There is no evidence of acute hemorrhage, mass, mass effect or midline shift. Th ere is no hydrocephalus or extra-axial fluid collection. The visualized intracranial vasculature demo nstrates appropriate flow-voids. The sagittal midline structures appear unremarkable. The craniocervi talia junction is within normal limits. The calvarium demonstrates normal marrow signal. The paranasal sinuses and mastoid air cells are clear. IMPRESSION: 1. There is no acute intracranial process. 2. 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 3. Mild chronic microvascular supratentorial white matter ischemic changes. HS:Y
[2024-09-25] MEDS ORDERED: CYA100I PO (14:07)
[2024-09-25] MEDS ORDERED: CETI10CH PO (14:07)
[2024-09-25] MEDS ORDERED: HYDRX10T PO (14:07)
[2024-09-25] MEDS ORDERED: CYAN1TAB11 PO (16:34)
[2024-09-25] MEDS: InsuLIN REG 1unit/0.01ml Soln (100units/ml) SC SCH (18:38)
[2024-09-25] MEDS: SODIUM CHLORIDE 0.9% 1,000 ML IV ONE (18:45)
[2024-09-25] MEDS: SACUBITRIL-VALSARTAN 24mg/26mg TAB PO SCH (22:00)
[2024-09-26] VITALS (37 sets, daily range): BP systolic 106–178; BP diastolic 56–85; PULSE 82–108; RESP 12–27; TEMP 98.1–100.2; O2SAT 91–99
[2024-09-26] MEDS ORDERED: CARVEDILOL 12.5 MG TAB PO SCH (10:00)
--- NOTE | 2024-09-26 13:31 | DVHPN2 ---
Progress Note - Dictate Date Seen: Sep 26, 2024 Medical Necessity Reason Pt with a Central, PICC or Fol: No Subjective PT WELL KNOWN TO ME WITH SS COMPLEX OF FATIGUE WEAKNESS ACCELERATED HTN PMH; DIABETES VASCULOPATHY PAD OCCLUDED LEFT TIBIAL PERONEAL TRUCK WITH COLLATERALIZATION NEUROPATHY NEPHROPATHY PROTEINURIA HTN ECHO LVH DIASTOLIC DYSFUNCTION LEUKOCYTOSIS NOW BACK TO BASELINE vital signs Vital Sign Date Time Temp Pulse Resp B/P (MAP) Pulse Ox O2 Delivery O2 Flow Rate FiO2 09/26/24 13:00 87 20 121/70 (87) 98 09/26/24 09:50 Nasal Cannula* 4 36 09/26/24 09:00 98.4 98.4 Total Intake and Output 09/25/24 09/25/24 09/26/24 14:59 22:59 06:59 Intake Total 616.325 ml 1484.600 ml 240 ml Output Total 1200 ml 500 ml Balance 616.325 ml 284.600 ml -260 ml medications Current Medications Medications Dose Ordered Sig/Qing Route Start Time Stop Time Status Last Admin Dose Admin Amlodipine Besylate 10 mg DAILY PO 09/24/24 10:00 09/25/24 10:26 10 MG Furosemide 20 mg DAILY PO 09/24/24 10:00 09/26/24 09:41 20 MG Atorvastatin Calcium 10 mg HS PO 09/24/24 22:00 09/25/24 23:04 10 MG Clopidogrel Bisulfate 75 mg DAILY PO 09/24/24 10:00 09/26/24 09:41 75 MG Tamsulosin HCl 0.4 mg QPM PO 09/24/24 18:00 09/25/24 18:35 0.4 MG Azithromycin 250 ml @ 125 mls/hr DAILY IV 09/24/24 10:00 09/26/24 11:11 125 MLS/HR Albuterol 2.5 mg Q6HPRN PRN NEB 09/24/24 04:15 Enoxaparin Sodium 40 mg DAILY SC 09/24/24 10:00 09/26/24 09:42 40 MG Acetaminophen 650 mg Q6HP PRN PO 09/24/24 04:15 09/26/24 04:45 650 MG Diagnostic Test (Pha) 1 strip ACHS 09/24/24 11:30 09/26/24 11:16 1 STRIP Dextrose 50 ml UD PRN IV 09/24/24 10:15 Esmolol HCl 250 ml @ 0 mls/hr Q0M IV 09/24/24 18:00 09/25/24 10:50 21.15 MLS/HR Ondansetron HCl 4 mg Q4HPRN PRN IV 09/24/24 21:45 Insulin Glargine 9 units DAILY@1000 SC 09/25/24 10:00 09/26/24 11:27 9 UNITS Sacubitril/ Valsartan 2 tab BID PO 09/25/24 22:00 09/26/24 12:52 2 TAB Insulin Human Regular AC SC 09/25/24 17:00 09/26/24 11:28 6 UNITS Carvedilol 12.5 mg Q12HR PO 09/26/24 10:00 Hold laboratory and microbiology Laboratory Tests 09/25/24 04:47 Test 09/25/24 04:47 Range/Units Serum Glucose 202 #H 74-106 mg/dL Problem List SS COMPLEX OF FATIGUE WEAKNESS ACCELERATED HTN PMH; DIABETES VASCULOPATHY PAD OCCLUDED LEFT TIBIAL PERONEAL TRUCK WITH COLLATERALIZATION NEUROPATHY NEPHROPATHY PROTEINURIA HTN ECHO LVH DIASTOLIC DYSFUNCTION LEUKOCYTOSIS NOW BACK TO BASELINE PSEUDO HYPONATREMIA CORRECTED 138 Assessment/Plan ADD ENTRESTO DC LOSARTAN ON ENTRESTO PT BP UNDER EXCELLENT CONTROL Plan discussed with: Patient CARLOS SCHNEIDER MD Sep 26, 2024 13:31
[2024-09-26] MEDS ORDERED: SACU1TAB PO (14:14)
[2024-09-26] MEDS ORDERED: CLOP75TA70 PO (14:14)
--- NOTE | 2024-09-26 14:18 | DVHDS2 ---
Discharge Summary Date of Admission Sep 24, 2024 at 04:10 Date of Discharge: Sep 26, 2024 Labs/Diagnostic Data: Laboratory Results Test 09/26/24 11:15 09/25/24 04:47 09/24/24 22:13 09/24/24 18:06 POC Glucose 242 mg/dl (70-106) White Blood Count 10.0 10^3/uL (4.4-10.8) Red Blood Count 5.04 10^6/uL (4.5-5.90) Hemoglobin 15.2 g/dL (13.5-17.5) Hematocrit 43.7 % (41.0-53.0) Mean Corpuscular Volume 86.7 fL (80.0-100.0) Mean Corpuscular Hemoglobin 30.1 pg (28.0-32.0) Mean Corpuscular Hemoglobin Concent 34.7 g/dL (32.0-36.0) Red Cell Distribution Width 13.3 % (11.8-14.3) Platelet Count 231 10^3/uL (140-450) Mean Platelet Volume 9.4 fL (6.9-10.8) Neutrophils (%) (Auto) 87.6 % (37.0-80.0) Lymphocytes (%) (Auto) 6.5 % (10.0-50.0) Monocytes (%) (Auto) 5.5 % (0.0-12.0) Eosinophils (%) (Auto) 0.1 % (0.0-7.0) Basophils (%) (Auto) 0.3 % (0.0-2.0) Neutrophils # (Auto) 8.8 10 ^3/uL (1.6-8.6) Lymphocytes # (Auto) 0.7 10 ^3/uL (0.4-5.4) Monocytes # (Auto) 0.6 10 ^3/uL (0-1.3) Eosinophils # (Auto) 0 10 ^3/uL (0-0.8) Basophils # (Auto) 0 10 ^3/uL (0-0.2) Nucleated Red Blood Cells 0.0 % Sodium Level 133 mmol/L (136-145) Potassium Level 4.0 mmol/L (3.5-5.1) Chloride Level 98 mmol/L (98-107) Carbon Dioxide Level 26 mmol/L (20-31) Anion Gap 9 (5-15) Blood Urea Nitrogen 17 mg/dL (9-23) Creatinine 1.26 mg/dL (0.700-1.30) Glomerular Filtration Rate Calc 58 mL/min (>90) BUN/Creatinine Ratio 13.5 (10.0-20.0) Serum Glucose 202 mg/dL (74-106) Calcium Level 9.9 mg/dL (8.7-10.4) Total Bilirubin 0.6 mg/dL (0.2-1.0) Aspartate Amino Transferase (AST) 15 U/L (13-40) Alanine Aminotransferase (ALT) 22 U/L (7-40) Alkaline Phosphatase 117 U/L (46-116) Total Protein 7.1 g/dL (5.7-8.2) Albumin 4.3 g/dL (3.2-4.8) Blood Gas Specimen Type Arterial Blood Gas Sample Site Left radial Blood Gas Patient Temperature 37.0 Arterial Blood Date Drawn [id number] Arterial Blood pH 7.468 (7.350-7.450) Arterial Blood Partial Pressure CO2 32.5 mmHg (35.0-48.0) Arterial Blood Partial Pressure O2 60.9 mmHg (83.0-108.0) Arterial Blood HCO3 23.0 mmol/L (21.0-28.0) Arterial Blood Oxygen Saturation 93.7 % (94.0-98.0) Arterial Blood Base Excess 0.2 mmol/L (-2.0-3.0) Arterial Blood Oxyhemoglobin 92.0 % (94.0-98.0) Arterial Blood Carboxyhemoglobin 1.3 % (0.5-1.5) Arterial Blood Methemoglobin 0.5 % (0.0-1.5) Kevin Test Modified Blood Gas Total Hemoglobin 15.70 g/dL (13.5-17.5) Blood Gas Liter Flow 2.00 Blood Gas Modality Nasal cannula FiO2 % 28.0 Influenza Type A Antigen Negative (Negative) Influenza Type B Antigen Negative (Negative) SARS-CoV-2 Antigen (Rapid) Negative (NEGATIVE) Test 09/24/24 06:55 09/24/24 03:50 09/24/24 00:56 Urine Color Yellow (Yellow) Urine Clarity Clear (Clear) Urine pH 5.5 (5.0-9.0) Urine Specific [place] 1.019 (1.001-1.035) Urine Protein Trace (Negative) Urine Ketones Negative (Negative) Urine Blood Negative /uL (Negative) Urine Nitrite Negative (Negative) Urine Bilirubin Negative (Negative) Urine Urobilinogen Normal mg/dL (Negative) Urine Leukocyte Esterase Negative /uL (Negative) Urine RBC 1 /hpf (0 - 3) Urine WBC 3 /hpf (0 - 3) Urine Squamous Epithelial Cells None seen /hpf (<5) Urine Bacteria None seen /hpf (None Seen) Urine Glucose 3+ mg/dL (Normal) Troponin I High Sensitivity 64 ng/L (</=54) Triglycerides Level 269 mg/dL (< 150) Cholesterol Level 169 mg/dL (< 200) LDL Cholesterol 80 mg/dL (< 100) HDL Cholesterol 39 mg/dL (40-59) Hemoglobin A1c 9.3 % A1C (<5.7) Lactic Acid Level 1.3 mmol/L (0.4-2.0) Magnesium Level 1.7 mg/dL (1.6-2.6) B-Type Natriuretic Peptide 170.64 pg/mL (0-100) Lipase 46 U/L (12-53) Other Laboratory Tests 09/25/24 04:47 Brief Hx & Hospital Course: 79 yo M admitted for HTN emergency with AMS, started on esmolol drip, nowoff drip, on PO meds, BP reading possibly due to medial calcinosis. follow up with pcp for BP and glucose control. 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 Patient was counseled about treatment plan, medications, possible side effects, patientverbalized understanding. All questions were answered to the best of my ability. This discharge took greater then 30 minutes in planning, reviewing documentation, counseling the patient, and discussing with other team members." ASSESSMENT ASSESSMENT Assessment viral URI hypertensive emergency hypertensive heart disease chronic diastolic heart failure heart failure with preserved ejection fraction chronic PAD NIDDM possible spinal stenosis Type 2 NE demand ischemia Hyponatremia BPH frailty in the elderly old cerebellar stroke Date of Service: Sep 26, 2024 Billing Provider: MARGARITA HILLS MD Common Visit Codes: [id number] DISCH DAY >30min MARGARITA HILLS MD Sep 26, 2024 14:18
== END 2024-09-26 18:50 | disposition home or self-care (01) | DRG 199 ==
LOC: ER 00:14 → OVERFLOW 04:10
PROVIDERS: ADMIT Nurse Practitioner; ATTEND Student in an Organized Health Care Education/Training Program
DX: I16.1 Hypertensive emergency (principal); J96.01 Acute respiratory failure with hypoxia; I21.A1 Myocardial infarction type 2; I50.33 Acute on chronic diastolic (congestive) heart failure; I67.4 Hypertensive encephalopathy; E87.1 Hypo-osmolality and hyponatremia; E11.42 Type 2 diabetes mellitus with diabetic polyneuropathy; E78.5 Hyperlipidemia, unspecified; K21.9 Gastro-esophageal reflux disease without esophagitis; I11.0 Hypertensive heart disease with heart failure; I50.32 Chronic diastolic (congestive) heart failure; J06.9 Acute upper respiratory infection, unspecified; N40.0 Benign prostatic hyperplasia without lower urinary tract symptoms; Z86.73 Personal history of transient ischemic attack (TIA), and cerebral infarction without residual deficits; Z79.84 Long term (current) use of oral hypoglycemic drugs; Z79.4 Long term (current) use of insulin; Z79.899 Other long term (current) drug therapy
CPT/HCPCS: 36415; 36600; 70450; 70551; 71045; 80048; 80053; 80061; 81001; 82805; 82962; 83036; 83605; 83690; 83735; 83880; 84484; 85025; 87426; 87804; 93005; 96365; 96372; 96375; 99291; G0378; J1815

== ENCOUNTER → 2024-12-30 | Outpatient (CLI) | payer MEDICAID ==
[~2024-12-30] MED LIST changes: -AMLO1TAB22 PO; -ASPI1CAP3 PO; -AZIT1POW PO; -BENA40TA71 PO; -CEPH-510 PO; -CILO100T3 PO; -CLOP75TA28 PO; -CLOT-53 EX; +CYAN1TAB11 PO; -FERR325T20 PO; -HYDR-4902 PO; -LOSA-535 PO; -POTA-36 PO; +SACU1TAB PO; -SIMV10TA20 PO
== END | disposition home or self-care (01) ==
LOC: Rad HDHVI 09:20
PROVIDERS: ATTEND Internal Medicine Cardiovascular Disease
DX: I10 Essential (primary) hypertension (principal)
CPT/HCPCS: 93306

== ENCOUNTER → 2025-01-05 | Outpatient (CLI) | payer MEDICAID ==
[~2025-01-05] VITALS: Ht 154.9 cm; Wt 70.3 kg
[~2025-01-05] MED LIST changes: +ADENOSINE 59 MG in GIVE UN-DILUTED 0 ML IV ONE; +ADENOSINE 90 MG/30 ML INJ IV ONE
== END | disposition home or self-care (01) ==
LOC: Rad HDHVI 08:54
PROVIDERS: ATTEND Internal Medicine Cardiovascular Disease
DX: I10 Essential (primary) hypertension (principal); E11.40 Type 2 diabetes mellitus with diabetic neuropathy, unspecified; R06.02 Shortness of breath; R60.0 Localized edema; I73.9 Peripheral vascular disease, unspecified; I44.1 Atrioventricular block, second degree; E11.21 Type 2 diabetes mellitus with diabetic nephropathy; E78.5 Hyperlipidemia, unspecified; R00.0 Tachycardia, unspecified; Z82.49 Family history of ischemic heart disease and other diseases of the circulatory system; Z86.73 Personal history of transient ischemic attack (TIA), and cerebral infarction without residual deficits
CPT/HCPCS: 78452; 93005; A9500; J0153; 96374; 96375

== ENCOUNTER 2025-02-09 13:33 | Inpatient (IN) | payer MEDICAID ==
[~2025-02-09] VITALS: Ht 162.6 cm; Wt 68.5 kg
[~2025-02-09 13:33] MED LIST changes: -ADENOSINE 59 MG in GIVE UN-DILUTED 0 ML IV ONE; -ADENOSINE 90 MG/30 ML INJ IV ONE
--- NOTE | 2025-02-09 13:57 | ED.PDOC ---
History of Present Illness HPI Comments 79 y/o overweight M, with a history of DM and HTN, presents with c/o left- shoulder and left-lower chest-wall pain s/p mechanical fall and injury, today. Patient is a [place] speaker and a poor historian and endorses on onset of symptoms after he tripped over a "plant" and fell forward, while walking, earlier, today. Patient reports on having no prior symptoms to and not losing consciousness after fall. He only notes on being short of breath and having trouble assisting himself back up within the initial 30 minutes after falling. Patient states on chest-wall pain being reproducible whenever he sits upright. Patient denies any current shortness of breath, palpitations, additional injuri es, dizziness, headache, or other associated symptoms or modifiers at this time. Time Seen by MD: 13:45 Primary Care Provider: SHARON Reviewed Notes: Nurses Notes, Medications, Allergies Allergies: Coded Allergies: NO KNOWN ALLERGIES (Unverified , 05/02/22) Home Meds Active Scripts Sacubitril-Valsartan (Entresto 24-26 mg) 1 Tab Tab, 2 TAB PO BID for 30 Days, #120 TAB Prov:MARGARITA HILLS MD 09/26/24 Clopidogrel Bisulfate (CLOPIDOGREL) 75 Mg Tab, 75 MG PO DAILY for 21 Days, #21 TAB Prov:MARGARITA HILLS MD 09/26/24 Reported Medications Tirzepatide (Mounjaro) 12.5 Mg/0.5 Ml Inj, 12.5 MG SC UD for 28 Days, #2 09/25/24 Tamsulosin Hcl (Tamsulosin Hcl) 0.4 Mg Cap, 1 CAP PO DAILY for 90 Days, #90 09/25/24 Potassium Citrate (Potassium Citrate) 1,080 Mg Tab, 1 TAB PO DAILY for 30 Days, #30 09/25/24 Clopidogrel Bisulfate (CLOPIDOGREL) 75 Mg Tab, 1 TAB PO DAILY for 90 Days, #90 09/25/24 Hydroxyzine Pamoate (Hydroxyzine Pamoate) 25 Mg Cap, 1 CAP PO DAILY for 30 Days, #30 09/25/24 Cyanocobalamin (Vitamin B12) 1,000 Mcg Tab, 1 TAB PO DAILY for 30 Days, #30 09/25/24 Cetirizine HCl (Cetirizine Hydrochloride) 10 Mg Tab, 1 TAB PO DAILY for 30 Days, #30 09/25/24 Amlodipine Besylate (Amlodipine Besylate) 10 Mg Tab, 1 TAB PO DAILY for 30 Days, #30 09/25/24 Furosemide (Furosemide) 20 Mg Tab, 1 TAB PO DAILY for 30 Days, #30 02/15/23 Aspirin (Aspirin Ec) 81 Mg Tab, 1 TAB PO DAILY for 30 Days, #30 02/15/23 Carvedilol (Carvedilol) 12.5 Mg Tab, 1 TAB PO BID for 30 Days, #60 02/17/22 Folic Acid (Folic Acid) 1 Mg Tab, 1 MG PO DAILY for 30 Days, #30 02/17/22 Sitagliptin-Metformin Hcl (JANUMET XR) 1 Tab Tab, 1 TAB PO BID for 30 Days, #60 08/10/21 Information Source: Patient Mode of Arrival: Ambulatory Severity: Moderate Timing: Hours Duration: Since onset Prehospital treatment: None Past Medical History PAST MEDICAL HISTORY: Angina, DM, GERD, High Lipids, HTN, TIA Surgical History: Denies all surgeries Family History Family History: Reviewed,noncontributory to illness Social History Smoker: Non-Smoker Alcohol: Denies ETOH Use Drugs: Denies Drug Use Lives In: Home Constitutional: denies: chills, diaphoresis, fatigue, fever, malaise, sweats, weakness, others EENTM: denies: blurred vision, double vision, ear bleeding, ear discharge, ear drainage, ear pain, ear ringing, eye pain, eye redness, hearing loss, mouth pain, mouth swelling, nasal discharge, nose bleeding, nose congestion, nose pain, photophobia, tearing, throat pain, throat swelling, voice changes, others Respiratory: denies: cough, hemoptysis, orthopnea, SOB at rest, shortness of breath, SOB with excertion, stridor, wheezing, others Cardiovascular: reports: chest pain; denies: dizzy spells, diaphoresis, Dyspnea on exertion, edema, irregular heart beat, left arm pain, lightheadedness, palpitations, PND, syncope, others Gastrointestinal: denies: abdomen distended, abdominal pain, blood streaked bowels, constipated, diarrhea, dysphagia, difficulty swallowing, hematemesis, melena, nausea, poor appetite, poor fluid intake, rectal bleeding, rectal pain, vomiting, others Genitourinary: denies: burning, dysuria, flank pain, frequency, hematuria, incontinence, penile discharge, penile sore, pain, testicle pain, testicle swelling, urgency, others Neurological: denies: dizziness, fainting, headache, left sided numbness, left sided weakness, numbness, paresthesia, pre-existing deficit, right sided numbness, right sided weakness, seizure, speech problems, tingling, tremors, weakness, others Musculoskeletal: reports: joint pain (left shoulder ); denies: back pain, gout, joint swelling, muscle pain, muscle stiffness, neck pain, others Integumetry: denies: bruises, change in color, change in hair/nails, dryness, laceration, lesions, lumps, rash, wounds, others Allergic/Immunocompromised: denies: Difficulty Healing, Frequent Infections, Hives, Itching, others Hematologic/Lymphatic: denies: anemia, blood clots, easy bleeding, easy bruising, swollen glands, others Endocrine: denies: excessive hunger, excessive sweating, excessive thirst, excessive urination, flushing, intolerance to cold, intolerance to heat, unexplained weight gain, unexplained weight loss, others Psychiatric: denies: anxiety, bipolar disorder, depression, hopeless, panic disorder, schizophrenia, sleepless, suicidal, others All Other Systems: Reviewed and Negative Physical Exam General Appearance: Moderate Distress HEENT: Normal ENT Inspection, Pharynx Normal, TMs Normal Neck: Full Range of Motion, Non-Tender, Normal, Normal Inspection Respiratory: Chest Non-Tender, Lungs Clear, No Accessory Muscle Use, No Respiratory Distress, Normal Breath Sounds Cardiovascular: No Edema, No JVD, No Murmur, No Gallop, Normal Peripheral Pulses, Regular Rate/Rhythm Breast Exam: Deferred Gastrointestinal: No Organomegaly, Non Tender, No Pulsatile Mass, Normal Bowel Sounds, Soft Genitalia: Deferred Pelvic: Deferred Rectal: Deferred Extremities: No calf tenderness, Normal capillary refill, Normal inspection, Normal range of motion, Non-tender, No pedal edema Musculoskeletal : Apperance: Normal Neurologic: Alert, 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 Was a procedure done?: No EKG EKG : Pulse Rate (adult): 86 [place]: Normal Cardiac Rhythm: NSR Block: None Hypertrophy: None ST: Normal Differential Dx Considerations may include: [place], PE, ACS, URI, PNA, musculoskeletal pain, angina, costochondritis, gastritis, among others X-Ray, Labs, Meds, VS Vital Signs Date Time Temp Pulse Resp B/P (MAP) Pulse Ox O2 Delivery O2 Flow Rate FiO2 02/09/25 14:30 190/99 02/09/25 14:11 98.6 81 18 210/114 (146) 94 98.6 02/09/25 14:01 86 02/09/25 13:56 86 Lab Test 02/09/25 14:28 Range/Units White Blood Count 15.0 H 4.4-10.8 10^3/uL Red Blood Count 5.13 4.5-5.90 10^6/uL Hemoglobin 15.2 13.5-17.5 g/dL Hematocrit 44.3 41.0-53.0 % Mean Corpuscular Volume 86.3 80.0-100.0 fL Mean Corpuscular Hemoglobin 29.6 28.0-32.0 pg Mean Corpuscular Hemoglobin Concent 34.2 32.0-36.0 g/dL Red Cell Distribution Width 13.1 11.8-14.3 % Platelet Count 229 140-450 10^3/uL Mean Platelet Volume 9.6 6.9-10.8 fL Neutrophils (%) (Auto) 37.0-80.0 % Lymphocytes (%) (Auto) 10.0-50.0 % Monocytes (%) (Auto) 0.0-12.0 % Basophils (%) (Auto) 0.0-2.0 % Neutrophils # (Auto) 1.6-8.6 10 ^3/uL Lymphocytes # (Auto) 0.4-5.4 10 ^3/uL Monocytes # (Auto) 0-1.3 10 ^3/uL Differential Total Cells Counted 100.0 100 Neutrophils % (Manual) 90 H 37.0-80.0 Band Neutrophils % (Manual) 5 Lymphocytes % (Manual) 2 L 10.0-50.0 Monocytes % (Manual) 3 0-12 Eosinophils % (Manual) 0 0-7 Basophils % (Manual) 0 0.0-2.0 Metamyelocytes % (manual) 0 Myelocytes % (Manual) 0 Promyelocytes % (Manual) 0 Blast Cells % (Manual) 0 Reactive Lymphocytes 0 Platelet Estimate Adequate Large Platelets Few Red Blood Cell Morphology Normal Sodium Level 132 L 136-145 mmol/L Potassium Level 4.4 3.5-5.1 mmol/L Chloride Level 100 98-107 mmol/L Carbon Dioxide Level 24 20-31 mmol/L Anion Gap 8 5-15 Blood Urea Nitrogen 15 9-23 mg/dL Creatinine 1.16 0.700-1.30 mg/dL Glomerular Filtration Rate Calc 64 >90 mL/min BUN/Creatinine Ratio 12.9 10.0-20.0 Serum Glucose 508 *H 74-106 mg/dL Calcium Level 9.6 8.7-10.4 mg/dL Current Medications Medications (Trade) Dose Ordered Sig/Qing Route Start Time Stop Time Status Last Admin Clonidine HCl (Catapres Tablet) 0.2 mg ONCE ONCE PO 02/09/25 14:00 02/09/25 14:01 DC 02/09/25 14:30 PROCEDURE(s): CXR2 - CHEST TWO VIEWS ROUTINE IMPRESSION: Bibasilar subsegmental atelectasis The patient's CBC shows an elevated white blood cell count of 15 The rest of the CBC is within normal limits The chemistry panel shows hyponatremia The glucose is elevated at 508 indicating hyperglycemia The patient was somewhat hypertensive upon arrival so the patient was given clonidine 0.2 mg by mouth The patient was given insulin for the hyperglycemia The patient was being admitted with a diagnosis of accelerated hypertension as well as hyperglycemia uncontrolled diabetes Time of 1ST Reevaluation: 14:15 Reevaluation 1ST: Unchanged Patient Education/Counseling: Diagnosis, Treatment, Need For Follow Up Family Education/Counseling: No Family Present Departure 1 Departure Time of Disposition: 16:22 Impression: Primary Impression: Uncontrolled diabetes mellitus Qualified Codes: E13.65 - Other specified diabetes mellitus with hyperglycemia Additional Impression: Accelerated hypertension Disposition: 09 ADMITTED INPATIENT Admit to: Tele Condition: Fair Critical Care Note Critical Care Time?: Yes (45 min-critical care time only) Stability Stability form required: Yes Unstable for transfer: Telemetry monitoring (Telemetry monitoring required), ED Physician Assesment (Clinical assesment) Heart Score Heart Score: Heart Score Response (Comments) Value History Slightly Suspicious 0 EKG Normal 0 Age >65 2 Risk Factors >3 or Hx ASHD 2 Troponin Normal limit 0 Total 4 I personally scribed for THERESE CAGLE MD ([email or web address]) on 02/09/25 at 13:57. Electronically submitted by Angel Burgess ([email or web address]). I personally scribed for THERESE CAGLE MD ([email or web address]) on 02/09/25 at 14:01. Electronically submitted by Angel Burgess ([email or web address]). I personally scribed for THERESE CAGLE MD ([email or web address]) on 02/09/25 at 14:51. Electronically submitted by Angel Burgess ([email or web address]). THERESE CAGLE MD Feb 09, 2025 13:57
[2025-02-09] MEDS: cloNIDine HCL 0.1 MG TAB PO ONE (14:30)
[2025-02-09 14:35] LABS: Hematocrit 44.3 % (41.0-53.0); Hemoglobin 15.2 g/dL (13.5-17.5); Mean Corpuscular Hemoglobin 29.6 pg (28.0-32.0); Mean Corpuscular Hgb Conc. 34.2 g/dL (32.0-36.0); Mean Corpuscular Volume 86.3 fL (80.0-100.0); Platelet Count (auto) 229 10^3/uL (140-450); Red Blood Cells 5.13 10^6/uL (4.5-5.90); Red Cell Distribution Width 13.1 % (11.8-14.3)
--- NOTE | 2025-02-09 14:35 | DVH ---
CHEST RADIOGRAPH Indication: fall, trauma, pain Technique: Frontal and lateral view of the chest was obtained Comparison: CXR2 on DOS: 05/02/22, CHEST TWO VIEWS ROUTINE on DOS: 05/02/22 FINDINGS: Lines and Tubes: None Lungs: Bibasilar subsegmental atelectasis. Pleura: No effusion. No pneumothorax. Cardiomediastinal contours: Unremarkable Bones: Unremarkable IMPRESSION: Bibasilar subsegmental atelectasis
[2025-02-09 14:41] LABS: Basophils % (manual) 0 (0.0-2.0); Blast Cells 0; Eosinophils % (manual) 0 (0-7); Metamyelocytes % 0; Myelocytes % 0; Promyelocytes % 0; Reactive Lymphocytes 0
[2025-02-09 14:52] LABS: Chloride 100 mmol/L (98-107); Potassium 4.4 mmol/L (3.5-5.1)
[2025-02-09 14:53] LABS: Calcium 9.6 mg/dL (8.7-10.4); Carbon Dioxide 24 mmol/L (20-31)
[2025-02-09 14:58] LABS: BUN/Creatinine Ratio 12.9 (10.0-20.0); Blood Urea Nitrogen 15 mg/dL (9-23)
[2025-02-09 14:59] LABS: Anion Gap 8 (5-15); Sodium 132 mmol/L (136-145)
[2025-02-09 15:00] LABS: Glucose 508 mg/dL (74-106)
[2025-02-09 15:42] LABS: Band Neutrophils % (manual) 5; Lymphocytes % (manual) 2 (10.0-50.0); Monocytes % (manual) 3 (0-12); Platelet Estimate Adequate; RBC Morphology Normal
[2025-02-09 15:43] LABS: Large Platelets FEW
[2025-02-09] MEDS ORDERED: cloNIDine HCL 0.1 MG TAB PO PRN (20:00)
[2025-02-09] MEDS ORDERED: DEXTROSE (50%) 50ML SYRG IV PRN (20:00)
[2025-02-09] MEDS ORDERED: ONDANSETRON HCL 4 MG/2 ML VIAL IV PRN (20:00)
[2025-02-09] MEDS: ACCU-CHEK COMFORT CURVE STRIP VI SCH (20:07)
[2025-02-09] MEDS: InsuLIN REG 1unit/0.01ml Soln (100units/ml) SC SCH (20:18)
[2025-02-09] MEDS: InsuLIN REG 1unit/0.01ml Soln (100units/ml) IV ONE (20:26)
--- NOTE | 2025-02-09 20:58 | DVHHP2 ---
History of Present Illness Reason for Visit: Mechanical fall History of Present Illness 79-year-old male presents for evaluation of mechanical fall. Patient reports a fall today while walking, his legs gave on her landed hurting his left chest. On arrival patient was noted to be hypertensive as well in the 200s a blood sugar greater than 500. Past Medical History Diabetes mellitus, hypertension, GERD, dyslipidemia, TIA Past Surgical History Denies Family History Noncontributory Smoke: No ALCOHOL: none Drugs: None Lives: with Family Review of Systems Review of Systems Review of systems are currently negative otherwise addressed in HPI. Allergies: Coded Allergies: NO KNOWN ALLERGIES (Unverified , 05/02/22) Medications Current Medications Medications Dose Ordered Sig/Qing Route Start Time Stop Time Status Last Admin Dose Admin Clonidine HCl 0.1 mg Q6HP PRN PO 02/09/25 20:00 Aspirin 81 mg DAILY PO 02/10/25 10:00 Amlodipine Besylate 10 mg DAILY PO 02/10/25 10:00 Carvedilol 12.5 mg Q12HR PO 02/09/25 22:00 Clopidogrel Bisulfate 75 mg DAILY PO 02/10/25 10:00 Furosemide 20 mg DAILY PO 02/10/25 10:00 Tamsulosin HCl 0.4 mg QPM PO 02/10/25 18:00 Sacubitril/ Valsartan 1 tab BID PO 02/09/25 22:00 Diagnostic Test (Pha) 1 strip IQ4HR 02/09/25 20:00 02/09/25 20:07 1 STRIP Insulin Human Regular IQ4HR SC 02/09/25 20:00 02/09/25 20:18 10 UNITS Dextrose 50 ml UD PRN IV 02/09/25 20:00 Ondansetron HCl 4 mg Q4HP PRN IV 02/09/25 20:00 Acetaminophen 650 mg Q6HP PRN PO 02/09/25 20:00 Exam Vital Signs Vital Signs Date Time Temp Pulse Resp B/P (MAP) Pulse Ox O2 Delivery O2 Flow Rate FiO2 02/09/25 20:48 Room Air* 0 21 02/09/25 18:38 64 20 96 02/09/25 18:38 97.8 144/66 (92) 97.8 Exam Gen: 79-year-old male in no apparent distress. Skin: Warm, dry, normal color and texture, no rash. HEENT: Normocephalic atraumatic, mucous membranes moist and pink. Neck: Cervical and supraclavicular nodes normal without enlargement, trachea is midline, thyroid gland is normal without masses. Pulmonary: Clear to auscultation and percussion bilaterally. Cardiac: Regular rate and rhythm. No murmur Abdomen: Soft, nontender, nondistended, bowel sounds present all 4 quadrants, no guarding, no rigidity, no organomegaly. Extremities: No cyanosis, clubbing, no edema Neuro: Cranial nerves II through XII grossly intact, normal affect and speech, no focal motor deficits. Labs/Xrays ORDERING PHYSICIAN: THERESE CAGLE MD PROCEDURE(s): CXR2 - CHEST TWO VIEWS ROUTINE REASON: fall ORDER NUMBER(s): [id number], ACCESSION NUMBER(s): [id number] CHEST RADIOGRAPH Indication: fall, trauma, pain Technique: Frontal and lateral view of the chest was obtained Comparison: CXR2 on DOS: 05/02/22, CHEST TWO VIEWS ROUTINE on DOS: 05/02/22 FINDINGS: Lines and Tubes: None Lungs: Bibasilar subsegmental atelectasis. Pleura: No effusion. No pneumothorax. Cardiomediastinal contours: Unremarkable Bones: Unremarkable IMPRESSION: Bibasilar subsegmental atelectasis Labs Test 02/09/25 20:06 02/09/25 14:28 Range/Units POC Glucose 502 *H 70-106 mg/dl White Blood Count 15.0 H 4.4-10.8 10^3/uL Red Blood Count 5.13 4.5-5.90 10^6/uL Hemoglobin 15.2 13.5-17.5 g/dL Hematocrit 44.3 41.0-53.0 % Mean Corpuscular Volume 86.3 80.0-100.0 fL Mean Corpuscular Hemoglobin 29.6 28.0-32.0 pg Mean Corpuscular Hemoglobin Concent 34.2 32.0-36.0 g/dL Red Cell Distribution Width 13.1 11.8-14.3 % Platelet Count 229 140-450 10^3/uL Mean Platelet Volume 9.6 6.9-10.8 fL Neutrophils (%) (Auto) 37.0-80.0 % Lymphocytes (%) (Auto) 10.0-50.0 % Monocytes (%) (Auto) 0.0-12.0 % Basophils (%) (Auto) 0.0-2.0 % Neutrophils # (Auto) 1.6-8.6 10 ^3/uL Lymphocytes # (Auto) 0.4-5.4 10 ^3/uL Monocytes # (Auto) 0-1.3 10 ^3/uL Differential Total Cells Counted 100.0 100 Neutrophils % (Manual) 90 H 37.0-80.0 Band Neutrophils % (Manual) 5 Lymphocytes % (Manual) 2 L 10.0-50.0 Monocytes % (Manual) 3 0-12 Eosinophils % (Manual) 0 0-7 Basophils % (Manual) 0 0.0-2.0 Metamyelocytes % (manual) 0 Myelocytes % (Manual) 0 Promyelocytes % (Manual) 0 Blast Cells % (Manual) 0 Reactive Lymphocytes 0 Platelet Estimate Adequate Large Platelets Few Red Blood Cell Morphology Normal Sodium Level 132 L 136-145 mmol/L Potassium Level 4.4 3.5-5.1 mmol/L Chloride Level 100 98-107 mmol/L Carbon Dioxide Level 24 20-31 mmol/L Anion Gap 8 5-15 Blood Urea Nitrogen 15 9-23 mg/dL Creatinine 1.16 0.700-1.30 mg/dL Glomerular Filtration Rate Calc 64 >90 mL/min BUN/Creatinine Ratio 12.9 10.0-20.0 Serum Glucose 508 *H 74-106 mg/dL Hemoglobin A1c 11.4 H <5.7 % A1C Calcium Level 9.6 8.7-10.4 mg/dL Assessment/Plan Assessment/Plan Assessment Hypertensive urgency Uncontrolled diabetes mellitus Plan Admit the patient to [facility] to the hospitalist As needed antihypertensives Q.4 hour Accu-Cheks with moderate coverage Resume home medications Continue treatment per orders. Plan discussed with: Patient My Orders Orders - [facility] Procedure Category Date Status Time Clonidine Hcl Tablet PHA 02/09/25 In Process (Catapres Tablet) 20:00 Aspirin Tablet PHA 02/10/25 In Process 10:00 Amlodipine Tablet PHA 02/10/25 In Process (Norvasc Tablet) 10:00 Carvedilol Tablet PHA 02/09/25 In Process (Coreg Tablet) 22:00 Clopidogrel Bisulfate PHA 02/10/25 In Process (Plavix) 10:00 Furosemide Tablet PHA 02/10/25 In Process (Lasix Tablet) 10:00 Tamsulosin PHA 02/10/25 In Process Hydrochloride (Flomax) 18:00 Sacubitril-Valsartan PHA 02/09/25 In Process (Entresto 24-26 Mg 22:00 Basic Metabolic Panel LAB 02/10/25 Verified 04:00 Glucose Blood PHA 02/09/25 In Process (Accu-Chek Comfort 20:00 Insulin R (Human) PHA 02/09/25 In Process (Insulin R) 20:00 Dextrose 50% Syringe PHA 02/09/25 In Process 20:00 Admit ADMIT 02/09/25 Transmitted 19:48 Ondansetron Hcl PHA 02/09/25 In Process (Zofran) 20:00 Cardiac DIET 02/10/25 Transmitted Diet-2gna,Lofat,Lochol Breakfast Condition: Stable JERI 02/09/25 In Process 19:48 Acetaminophen Tablet PHA 02/09/25 In Process (Tylenol Tablet) 20:00 Bedrest With Bathroom JERI 02/09/25 In Process Privileg 19:48 Date of Service: Feb 09, 2025 Billing Provider: FAUSTINO RUSSELL Common Visit Codes: [id number] INP/OBS CARE (HIGH) FASUTINO RUSSELL Feb 09, 2025 20:58
[2025-02-09 21:44] VITALS: BP 143/68; PULSE 74; TEMP 97.5; O2SAT 96
[2025-02-09] MEDS ORDERED: SIMV10TA20 PO (22:21)
[2025-02-09] MEDS ORDERED: BENA40TA71 PO (22:21)
[2025-02-09] MEDS ORDERED: MULT-1018 PO (22:21)
[2025-02-09] MEDS ORDERED: POTA1080 PO (22:21)
[2025-02-09] MEDS ORDERED: LOSA-535 PO (22:21)
[2025-02-09] MEDS: SACUBITRIL-VALSARTAN 24mg/26mg TAB PO SCH (22:36)
[2025-02-09] MEDS: CARVEDILOL 12.5 MG TAB PO SCH (22:37)
[2025-02-10] VITALS (7 sets, daily range): BP systolic 116–155; BP diastolic 53–72; PULSE 60–77; RESP 16–19; TEMP 97.6–98.2; O2SAT 93–96
--- NOTE | 2025-02-10 04:21 | ECG ---
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
[2025-02-10 07:18] LABS: Chloride 102 mmol/L (98-107); Potassium 3.5 mmol/L (3.5-5.1)
[2025-02-10 07:19] LABS: Anion Gap 9 (5-15); Calcium 9.5 mg/dL (8.7-10.4); Carbon Dioxide 25 mmol/L (20-31)
[2025-02-10 07:24] LABS: BUN/Creatinine Ratio 23.3 (10.0-20.0); Glucose 92 mg/dL (74-106)
[2025-02-10 07:27] LABS: Blood Urea Nitrogen 30 mg/dL (9-23); Sodium 136 mmol/L (136-145)
[2025-02-10] MEDS: ASPirin 81 mg TAB PO SCH (10:15)
[2025-02-10] MEDS: CLOPIDOGREL BISULFATE 75 MG TAB PO SCH (10:15)
[2025-02-10] MEDS: amLODIPine BESYLATE 5 MG TAB PO SCH (10:16)
[2025-02-10] MEDS: FUROSEMIDE 20 MG TAB PO SCH (10:17)
[2025-02-10] MEDS: INSULIN LANTUS (GLARGINE) 1 /0.01ml (100units/ml) SC SCH (10:21)
--- NOTE | 2025-02-10 14:38 | DVHPNRES ---
Progress Note Date Seen: Feb 10, 2025 Resident Creating Document: SURESH HANNON RESIDENT Has the PT tested + for MRSA If YES, has PT been informed?: No Medical Necessity Reason Pt with a Central, PICC or Fol: No Subjective Review of Systems This is an 79-year-old male with past medical history of type 2 diabetes mellitus, hypertension, GERD, dyslipidemia, TIA one year ago, who presented to the ED after mechanical fall. The patient states that one day before coming to the ED he was walking outdoors and he felt that his legs gave up and landed in the floor on a little tree that hit his left upper chest. The patient stated that it was a mechanical fall and that he never lost consciousness. Upon admission, the patient reported left-sided chest pain at exact location where he got hit when he fall down. His initial blood pressure was 210/114mmhg and initial blood glucose was 508 but with no evidence of DKA at that time. Patient denied fever/chills, shortness of breath, abdominal tenderness, motor or sensory deficits. Initial labs showed a WBC of 15.0, creatinine of 1.29, otherwise labs were grossly unremarkable. Hemoglobin A1c came back at 11.4%. Patient was admitted for further assessment and management. Patient seen and examined at bedside. Patient still reports left-sided chest pain that is related to the exact location where he got hit when he fall down. Patient denied fever/chills, shortness of breath, abdominal tenderness, motor or sensory deficits. The patient is currently on Entresto 1 tab b.i.d., carvedilol 12.5mg BID, amlodipine 10 mg daily and furosemide 20 mg daily. Patient also was question regarding aspirin and clopidogrel but patient does not really know why he is on these two medications, patient thinks that it might be due to previous TIA one year ago. Patient denies any previous history of left heart catheterization or stent placement. Blood glucose still uncontrolled over 200, we started the patient on Lantus 15 units Qa.m. And mild sliding scale insulin. ROS Constitutional: Denies weight loss, fever and chills. HEENT: Denies changes in vision and hearing. Respiratory: Denies shortness of breath and cough Cardiovascular: Still reporting chest pain in the left side of the chest that gets worse with deep palpation. GI: Denies abdominal pain, nausea, vomiting and diarrhea. : Denies dysuria and urinary frequency. Musculoskeletal: Denies myalgias and joint pain Skin: Denies rash and pruritus. Neurological: Denies dizziness, headache, vision or hearing problems Objective vital signs Vital Sign Date Time Temp Pulse Resp B/P (MAP) Pulse Ox O2 Delivery O2 Flow Rate FiO2 02/10/25 13:00 98.2 77 19 155/59 (91) 94 98.2 02/09/25 21:44 Room Air* 0 21 Total Intake and Output 02/09/25 02/09/25 02/10/25 15:00 23:00 07:00 Intake Total 240 ml Balance 240 ml medications Current Medications Medications Dose Ordered Sig/Qing Route Start Time Stop Time Status Last Admin Dose Admin Clonidine HCl 0.1 mg Q6HP PRN PO 02/09/25 20:00 Aspirin 81 mg DAILY PO 02/10/25 10:00 02/10/25 10:15 81 MG Amlodipine Besylate 10 mg DAILY PO 02/10/25 10:00 02/10/25 10:16 10 MG Carvedilol 12.5 mg Q12HR PO 02/09/25 22:00 02/10/25 10:18 12.5 MG Clopidogrel Bisulfate 75 mg DAILY PO 02/10/25 10:00 02/10/25 10:15 75 MG Furosemide 20 mg DAILY PO 02/10/25 10:00 02/10/25 10:17 20 MG Tamsulosin HCl 0.4 mg QPM PO 02/10/25 18:00 Sacubitril/ Valsartan 1 tab BID PO 02/09/25 22:00 02/10/25 10:15 1 TAB Diagnostic Test (Pha) 1 strip IQ4HR 02/09/25 20:00 02/10/25 13:19 1 STRIP Insulin Human Regular IQ4HR SC 02/09/25 20:00 02/10/25 13:24 8 UNITS Dextrose 50 ml UD PRN IV 02/09/25 20:00 Ondansetron HCl 4 mg Q4HP PRN IV 02/09/25 20:00 Acetaminophen 650 mg Q6HP PRN PO 02/09/25 20:00 Insulin Glargine 15 units QAM SC 02/10/25 09:00 02/10/25 10:21 15 UNITS Examination Physical Examination General: Patient alert and oriented in person, place and time. Patient following commands. HEENT: Normocephalic, atraumatic, moist mucous membranes Respiratory/pulmonary: Clear lungs bilaterally, no associated crackles or wheezes. Cardiovascular: Normal heart sounds S1 and S2 with no associated murmurs, there is left-sided chest pain that gets worse with deep palpation. Abdomen: Abdomen nondistended, there is no pain to palpation in any of the abdominal quadrants, no palpable masses. Extremities: There is no peripheral edema present at the lower extremities. Peripheral Pulses: 3+ Radial (R). 3+ Radial (L). 3+ Dorsalis pedis (R). 3+ Dorsalis pedis(L) Skin: No rashes or pruritus, there is no sacral edema present at this time. Neurological: Intact cranial nerves with no focal neurologic deficits laboratory and microbiology Laboratory Tests 02/10/25 06:30 02/09/25 14:28 Test 02/10/25 06:30 Range/Units Serum Glucose 92 # 74-106 mg/dL Problem List/Assessment/Plan Problem List/Assessment/Plan Assessment/Plan Hypertensive emergency with organ damage to the kidney -blood pressure on admission was 210/114 mmHg -continue Entresto 1 tab b.i.d. -continue carvedilol 12.5 mg q.12 -continue amlodipine 10 mg daily -hold Diuretics until tomorrow -Start clonidine 0.1 mg BID -Monitor BP closely Acute chest pain likely musculoskeletal due to mechanical fall -left-sided chest pain that gets worse with deep palpation (reproducible with touch) -EKG showed sinus rhythm with non specific ST elevation in anterior leads -ordered troponins -last echocardiogram showed an LVEF of 55% with LVH and mild aortic regurgitation KAYLEN likely due to severe uncontrolled hypertension -creatinine 1.29, BUN 30 -control blood pressure closely -Start IV fluids 60cc/hr Uncontrolled type 2 diabetes mellitus without DKA -hemoglobin A1c came back at 11.4% -initial blood glucose was 508 -start Lantus 15 units q.a.m. -continue mild sliding scale insulin -monitor blood glucose closely and readjust Lantus dosage as needed. Dyslipidemia -order lipid panel -Start atorvastatin 20mg daily History of TIA -patient is currently on aspirin 81 mg and clopidogrel 75 mg daily -patient states he has never had any cardiac issues, no left heart catheterization or stent placement. Patient does not know why he is on dual antiplatelet therapy. GERD -Start pantoprazole 40 mg daily p.o. Goals of care discussed with the patient at bedside for >25min, FULL CODE Plan discussed with Dr. Ortiz Plan discussed with: Patient My Orders My Orders Orders - SURESH HANNON Procedure Category Date Status Time Insulin Lantus PHA 02/10/25 In Process (Glargine) (Lantus) 09:00 Dietary Evaluation Review Comments: 1. Continue 60 gm CHO diet, would remove cardiac modifier for least-restrictive diet possible 2. Rule-out infectious causes of diarrhea; if appropriate add anti-diarrheal medication 3. Monitor GI fx/symtpoms Expected Outcomes/Goals: Improvements in diarrhea, maintain adequate nutrition. Date of Service: Feb 10, 2025 Billing Provider: ALDEN ORTIZ MD Common Visit Codes: [id number] INP/OBS CARE(HIGH) SURESH HANNON RESIDENT Feb 10, 2025 14:38 ALDEN ORTIZ MD Feb 10, 2025 21:43
[2025-02-10] MEDS: SODIUM CHLORIDE 0.9% 1,000 ML IV SCH (15:36)
[2025-02-10 15:44] LABS: Triglycerides 165 mg/dL (< 150)
[2025-02-10 15:45] LABS: LDL Cholesterol 145 mg/dL (< 100)
[2025-02-10 15:46] LABS: Cholesterol 207 mg/dL (< 200); HDL Cholesterol 34 mg/dL (40-59)
[2025-02-10] MEDS: cloNIDine HCL 0.1 MG TAB PO SCH (15:52)
[2025-02-10] MEDS: TAMSULOSIN HYDROCHLORIDE 0.4 MG CAP PO SCH (18:51)
[2025-02-10] MEDS: ACETAMINOPHEN 325 MG TAB PO PRN (19:42)
[2025-02-10] MEDS: ATORVASTATIN 20 MG TAB PO SCH (22:21)
[2025-02-11 01:00] VITALS: BP 124/61; PULSE 62; RESP 17; TEMP 98.2; O2SAT 99
[2025-02-11 05:00] VITALS: BP 126/63; PULSE 60; RESP 18; TEMP 98.3; O2SAT 96
[2025-02-11] MEDS: PANTOPRAZOLE 40 MG TAB PO SCH (05:48)
[2025-02-11 06:36] LABS: Basophils # (auto) 0.1 10 ^3/uL (0-0.2); Basophils % (auto) 0.6 % (0.0-2.0); Eosinophils # (auto) 0.3 10 ^3/uL (0-0.8); Hematocrit 40.1 % (41.0-53.0); Hemoglobin 14.1 g/dL (13.5-17.5); Lymphocytes # (auto) 2.1 10 ^3/uL (0.4-5.4); Lymphocytes % (auto) 22.1 % (10.0-50.0); Mean Corpuscular Hemoglobin 29.8 pg (28.0-32.0); Mean Corpuscular Hgb Conc. 35.2 g/dL (32.0-36.0); Mean Corpuscular Volume 84.7 fL (80.0-100.0); Monocytes # (auto) 0.6 10 ^3/uL (0-1.3); Monocytes % (auto) 6.7 % (0.0-12.0); Neutrophils # (auto) 6.3 10 ^3/uL (1.6-8.6); Neutrophils % (auto) 67.6 % (37.0-80.0); Nucleated Red Blood Cells % 0.1 %; Platelet Count (auto) 234 10^3/uL (140-450); Red Blood Cells 4.73 10^6/uL (4.5-5.90); Red Cell Distribution Width 13.5 % (11.8-14.3); White Blood Cell 9.4 10^3/uL (4.4-10.8)
[2025-02-11 06:38] LABS: Anion Gap 10 (5-15); Carbon Dioxide 22 mmol/L (20-31); Chloride 103 mmol/L (98-107); Potassium 3.6 mmol/L (3.5-5.1)
[2025-02-11 06:44] LABS: BUN/Creatinine Ratio 25.3 (10.0-20.0); Blood Urea Nitrogen 25 mg/dL (9-23); Glucose 86 mg/dL (74-106); Sodium 135 mmol/L (136-145)
[2025-02-11] MEDS: ERGOCALCIFEROL 50,000 UNIT(1.25MG) CAP PO SCH (07:00)
[2025-02-11 08:44] VITALS: BP 141/60; PULSE 66; RESP 18; TEMP 97.9; O2SAT 99
[2025-02-11] MEDS ORDERED: INSLANTI SC (10:00)
[2025-02-11] MEDS ORDERED: EMPA1TAB PO (10:00)
[2025-02-11] MEDS ORDERED: CLON0.1T PO (10:06)
[2025-02-11] MEDS ORDERED: HYDR12.59 PO (10:06)
--- NOTE | 2025-02-11 10:10 | DVHDSRES ---
Discharge Summary Date of Admission Resident Creating Document: SURESH HANNON RESIDENT Feb 09, 2025 at 19:48 Date of Discharge: Feb 11, 2025 Admitting Diagnosis Hypertensive emergency and uncontrolled type 2 diabetes mellitus with hyperglycemia Wounds: No wounds present at this time. Labs/Diagnostic Data: Laboratory Results Test 02/11/25 06:09 02/11/25 06:00 02/10/25 17:10 02/10/25 06:30 POC Glucose 90 mg/dl (70-106) White Blood Count 9.4 10^3/uL (4.4-10.8) Red Blood Count 4.73 10^6/uL (4.5-5.90) Hemoglobin 14.1 g/dL (13.5-17.5) Hematocrit 40.1 % (41.0-53.0) Mean Corpuscular Volume 84.7 fL (80.0-100.0) Mean Corpuscular Hemoglobin 29.8 pg (28.0-32.0) Mean Corpuscular Hemoglobin Concent 35.2 g/dL (32.0-36.0) Red Cell Distribution Width 13.5 % (11.8-14.3) Platelet Count 234 10^3/uL (140-450) Mean Platelet Volume 9.3 fL (6.9-10.8) Neutrophils (%) (Auto) 67.6 % (37.0-80.0) Lymphocytes (%) (Auto) 22.1 % (10.0-50.0) Monocytes (%) (Auto) 6.7 % (0.0-12.0) Eosinophils (%) (Auto) 3.0 % (0.0-7.0) Basophils (%) (Auto) 0.6 % (0.0-2.0) Neutrophils # (Auto) 6.3 10 ^3/uL (1.6-8.6) Lymphocytes # (Auto) 2.1 10 ^3/uL (0.4-5.4) Monocytes # (Auto) 0.6 10 ^3/uL (0-1.3) Eosinophils # (Auto) 0.3 10 ^3/uL (0-0.8) Basophils # (Auto) 0.1 10 ^3/uL (0-0.2) Nucleated Red Blood Cells 0.1 % Sodium Level 135 mmol/L (136-145) Potassium Level 3.6 mmol/L (3.5-5.1) Chloride Level 103 mmol/L (98-107) Carbon Dioxide Level 22 mmol/L (20-31) Anion Gap 10 (5-15) Blood Urea Nitrogen 25 mg/dL (9-23) Creatinine 0.99 mg/dL (0.700-1.30) Glomerular Filtration Rate Calc 77 mL/min (>90) BUN/Creatinine Ratio 25.3 (10.0-20.0) Serum Glucose 86 mg/dL (74-106) Calcium Level 9.0 mg/dL (8.7-10.4) Troponin I High Sensitivity 55 ng/L (</=54) Triglycerides Level 165 mg/dL (< 150) Cholesterol Level 207 mg/dL (< 200) LDL Cholesterol 145 mg/dL (< 100) HDL Cholesterol 34 mg/dL (40-59) Vitamin B12 Level 3582 pg/mL (211-911) Vitamin D 25-Hydroxy 24.4 ng/mL (30.0-100) Test 02/09/25 14:28 Differential Total Cells Counted 100.0 (100) Neutrophils % (Manual) 90 (37.0-80.0) Band Neutrophils % (Manual) 5 Lymphocytes % (Manual) 2 (10.0-50.0) Monocytes % (Manual) 3 (0-12) Eosinophils % (Manual) 0 (0-7) Basophils % (Manual) 0 (0.0-2.0) Metamyelocytes % (manual) 0 Myelocytes % (Manual) 0 Promyelocytes % (Manual) 0 Blast Cells % (Manual) 0 Reactive Lymphocytes 0 Platelet Estimate Adequate Large Platelets Few Red Blood Cell Morphology Normal Hemoglobin A1c 11.4 % A1C (<5.7) Other Laboratory Tests 02/11/25 06:00 Brief Hx & Hospital Course: This is an 79-year-old male with past medical history of type 2 diabetes mellitus, hypertension, GERD, dyslipidemia, TIA one year ago, who presented to the ED after mechanical fall. The patient states that one day before coming to the ED he was walking outdoors and he felt that his legs gave up and landed in the floor on a little tree that hit his left upper chest. The patient stated that it was a mechanical fall and that he never lost consciousness. Upon admission, the patient reported left-sided chest pain at exact location where he got hit when he fall down. His initial blood pressure was 210/114mmhg and initial blood glucose was 508 but with no evidence of DKA at that time. Patient denied fever/chills, shortness of breath, abdominal tenderness, motor or sensory deficits. Initial labs showed a WBC of 15.0, creatinine of 1.29, otherwise labs were grossly unremarkable. Hemoglobin A1c came back at 11.4%. Patient was started on Lantus 15 units daily with mild sliding scale insulin. Patient was also kept on Entresto one tab b.i.d., amlodipine 10 mg daily, hydrochlorothiazide 12.5 mg daily and clonidine 0.1 mg b.i.d. today, blood pressure is on normal range and well controlled with previous mentioned medications. Blood glucose was also on normal range. Today, patient was seen and examined at bedside. Patient still complains of minimal discomfort in the left upper chest which is associated with trauma upon hitting his left upper chest. Patient states that the pain has decreased significantly compared to admission and is very minimal at this time. Patient will be discharged home with Lantus 15 units daily, Jardiance 10 mg daily, clonidine 0.1 mg twice a day and hydrochlorothiazide 12.5 mg daily. Patient will continue rest of home medications. We discontinued benazepril, losartan, since the patient is already on Entresto. Rest of medications we will continue. patient is able to ambulate without complications. Patient agreed and understands the plan. ROS Constitutional: Denies weight loss, fever and chills. HEENT: Denies changes in vision and hearing. Respiratory: Denies shortness of breath and cough Cardiovascular: Denies chest discomfort or palpitations GI: Denies abdominal pain, nausea, vomiting and diarrhea. : Denies dysuria and urinary frequency. Musculoskeletal: Denies myalgias and joint pain Skin: Denies rash and pruritus. Neurological: Denies dizziness, headache, vision or hearing problems Physical Examination General: Patient alert and oriented in person, place and time. Patient following commands. HEENT: Normocephalic, atraumatic, moist mucous membranes Respiratory/pulmonary: Clear lungs bilaterally, no associated crackles or wheezes. Cardiovascular: Normal heart sounds S1 and S2 with no associated murmurs, there is mild left-sided chest pain that gets worse with deep palpation but states that he is much better compared to admission. Abdomen: Abdomen nondistended, there is no pain to palpation in any of the abdominal quadrants, no palpable masses. Extremities: There is no effusion on any of the knees. There is no peripheral edema present at the lower extremities. Peripheral Pulses: 3+ Radial (R). 3+ Radial (L). 3+ Dorsalis pedis (R). 3+ Dorsalis pedis(L) Skin: No rashes or pruritus, there is no sacral edema present at this time. Neurological: Intact cranial nerves with no focal neurologic deficits Consults/Reason for consult N/A Operations or Procedures CHEST RADIOGRAPH Indication: fall, trauma, pain Technique: Frontal and lateral view of the chest was obtained Comparison: CXR2 on DOS: 05/02/22, CHEST TWO VIEWS ROUTINE on DOS: 05/02/22 FINDINGS: Lines and Tubes: None Lungs: Bibasilar subsegmental atelectasis. Pleura: No effusion. No pneumothorax. Cardiomediastinal contours: Unremarkable Bones: Unremarkable IMPRESSION: Bibasilar subsegmental atelectasis Condition at Discharge: Stable Final Diagnosis/Problems List Hypertensive emergency with organ damage to the kidney Acute chest pain likely musculoskeletal due to mechanical fall KAYLEN likely due to severe uncontrolled hypertension Uncontrolled type 2 diabetes mellitus without DKA Dyslipidemia History of TIA GERD Discharge Disposition: Home Discharge Instruct/Medications Diet: Consistent carbohydrate Activity: No Restrictions, As Tolerated Follow Up/Referral: F/U with his PCP in 1 week Medications: Start Lantus 15units qpm Start jardiance 10mg daily Start clonidine 0.1mg BID Start hydrochlorothiazide 12.5mg daily Cont home medications Discharge Statement: "Patient was advised to return to the ER or call 911 if any headaches, dizziness, shortness of breath, chest pain, abdominal pain, bleeding, fevers, or worsening of medical condition. Patient was counseled about treatment plan, medications, possible side effects, patientverbalized understanding. All questions were answered to the best of my ability. This discharge took greater then 30 minutes in planning, reviewing documentation, counseling the patient, and discussing with other team members." ASSESSMENT ASSESSMENT Assessment Hypertensive emergency with organ damage to the kidney Acute chest pain likely musculoskeletal due to mechanical fall KAYLEN likely due to severe uncontrolled hypertension Uncontrolled type 2 diabetes mellitus without DKA Dyslipidemia History of TIA GERD Date of Service: Feb 11, 2025 Billing Provider: ALDEN MARQUIS MD Common Visit Codes: [id number] DISCH DAY >30min SURESH HANNON RESIDENT Feb 11, 2025 10:10 ALDEN MARQUIS MD Feb 11, 2025 21:08
[2025-02-11] MEDS: hydroCHLOROthiazide 25 MG TAB PO SCH (10:31)
[2025-02-11] MEDS ORDERED: ERGO1CAP12 PO (11:56)
[2025-02-11 12:39] VITALS: BP 132/52; PULSE 61; RESP 18; TEMP 98.1; O2SAT 94
== END 2025-02-11 14:00 | disposition home or self-care (01) | DRG 190 ==
LOC: ER 13:33 → OVERFLOW 19:48 → EAST 21:10
PROVIDERS: ADMIT Internal Medicine; ATTEND Emergency Medicine
DX: R07.89 Other chest pain (principal); I21.A1 Myocardial infarction type 2; E87.1 Hypo-osmolality and hyponatremia; N17.9 Acute kidney failure, unspecified; E11.65 Type 2 diabetes mellitus with hyperglycemia; I16.1 Hypertensive emergency; I10 Essential (primary) hypertension; J98.11 Atelectasis; K21.9 Gastro-esophageal reflux disease without esophagitis; E78.5 Hyperlipidemia, unspecified; Z79.899 Other long term (current) drug therapy; Z86.73 Personal history of transient ischemic attack (TIA), and cerebral infarction without residual deficits; Z79.82 Long term (current) use of aspirin
CPT/HCPCS: 36415; 71046; 80048; 80061; 82306; 82607; 82962; 83036; 84484; 85007; 85025; 85027; 93005; 99291; G0378; J1815

== ENCOUNTER 2025-04-25 05:13 | Inpatient (IN) | payer MEDICAID ==
[~2025-04-25] VITALS: Ht 167.6 cm; Wt 68.4 kg
[~2025-04-25 05:13] MED LIST changes: +CLON0.1T PO; +EMPA1TAB PO; +ERGO1CAP12 PO; -FURO20TA3 PO; +HYDR12.59 PO; +INSLANTI SC; +MULT-1018 PO; +SIMV10TA20 PO; -TIRZ12.5 SC
[2025-04-25 06:20] VITALS: PULSE 69; RESP 14; O2SAT 94
--- NOTE | 2025-04-25 06:25 | ED.PDOC ---
History of Present Illness HPI Comments 80-year-old male presents with a chief complaint of hematuria and burning with urination. Patient states the onset of symptoms began last night and he started to have this morning when he woke up. Denies having these symptoms before in the past. Patient is also hypertensive at 193/115. Patient denies any other symptoms at this time. Chief Complaint: Urinary Time Seen by MD: 06:19 Primary Care Provider: SHARON Reviewed Notes: Medications, Allergies Allergies: Coded Allergies: NO KNOWN ALLERGIES (Unverified , 05/02/22) Home Meds Active Scripts Ergocalciferol (Vitamin D) 50,000 Unit Cap, 83495 UNIT PO QWEEKLY, #10 CAP Prov:SURESH HANNON RESIDENT 02/11/25 Hydrochlorothiazide (Hydrochlorothiazide) 12.5 Mg Cap, 1 CAP PO DAILY for 30 Days, #30 CAP 5 Refills Prov:SURESH HANNON 02/11/25 Clonidine Hydrochloride (Clonidine Hcl) 0.1 Mg Tab, 0.1 MG PO BID for 30 Days, #60 TAB Prov:SURESH HANNON 02/11/25 Empagliflozin (Jardiance) 10 Mg Tab, 10 MG PO DAILY for 30 Days, #30 TAB Prov:SURESH HANNON 02/11/25 Insulin Glargine (Lantus) 100 Unit/Ml Inj, 15 UNIT SC QPM for 30 Days, #1 INJ Prov:SURESH HANNON RESIDENT 02/11/25 Sacubitril-Valsartan (Entresto 24-26 mg) 1 Tab Tab, 2 TAB PO BID for 30 Days, #120 TAB Prov:MARGARITA HILLS MD 09/26/24 Reported Medications Simvastatin (Simvastatin) 10 Mg Tab, 1 TAB PO QPM, #30 TAB 5 Refills 02/09/25 Multiple Vitamin (Multivitamins) Tab, 1 TAB PO DAILY, #90 TAB 3 Refills 02/09/25 Tamsulosin Hcl (Tamsulosin Hcl) 0.4 Mg Cap, 1 CAP PO DAILY for 90 Days, #90 09/25/24 Potassium Citrate (Potassium Citrate) 1,080 Mg Tab, 1 TAB PO DAILY for 30 Days, #30 09/25/24 Clopidogrel Bisulfate (CLOPIDOGREL) 75 Mg Tab, 1 TAB PO DAILY for 90 Days, #90 09/25/24 Hydroxyzine Pamoate (Hydroxyzine Pamoate) 25 Mg Cap, 1 CAP PO DAILY for 30 Days, #30 09/25/24 Cyanocobalamin (Vitamin B12) 1,000 Mcg Tab, 1 TAB PO DAILY for 30 Days, #30 09/25/24 Cetirizine HCl (Cetirizine Hydrochloride) 10 Mg Tab, 1 TAB PO DAILY for 30 Days, #30 09/25/24 Amlodipine Besylate (Amlodipine Besylate) 10 Mg Tab, 1 TAB PO DAILY for 30 Days, #30 09/25/24 Aspirin (Aspirin Ec) 81 Mg Tab, 1 TAB PO DAILY for 30 Days, #30 02/15/23 Carvedilol (Carvedilol) 12.5 Mg Tab, 1 TAB PO BID for 30 Days, #60 02/17/22 Folic Acid (Folic Acid) 1 Mg Tab, 1 MG PO DAILY for 30 Days, #30 02/17/22 Sitagliptin-Metformin Hcl (JANUMET XR) 1 Tab Tab, 1 TAB PO BID for 30 Days, #60 08/10/21 Information Source: Patient, Relative (GrandChild) Mode of Arrival: Ambulatory Severity: Moderate Timing: Hours Duration: Since onset Prehospital treatment: None Past Medical History PAST MEDICAL HISTORY: Angina, DM, GERD, High Lipids, HTN, TIA Surgical History: Denies all surgeries Family History Family History: Reviewed,noncontributory to illness Social History Smoker: Non-Smoker Alcohol: Denies ETOH Use Drugs: Denies Drug Use Lives In: Home Constitutional: denies: chills, diaphoresis, fatigue, fever, malaise, sweats, weakness, others EENTM: denies: blurred vision, double vision, ear bleeding, ear discharge, ear drainage, ear pain, ear ringing, eye pain, eye redness, hearing loss, mouth pain, mouth swelling, nasal discharge, nose bleeding, nose congestion, nose pain, photophobia, tearing, throat pain, throat swelling, voice changes, others Respiratory: denies: cough, hemoptysis, orthopnea, SOB at rest, shortness of breath, SOB with excertion, stridor, wheezing, others Cardiovascular: denies: chest pain, dizzy spells, diaphoresis, Dyspnea on exertion, edema, irregular heart beat, left arm pain, lightheadedness, palpitations, PND, syncope, others Gastrointestinal: denies: abdomen distended, abdominal pain, blood streaked bowels, constipated, diarrhea, dysphagia, difficulty swallowing, hematemesis, melena, nausea, poor appetite, poor fluid intake, rectal bleeding, rectal pain, vomiting, others Genitourinary: reports: burning, hematuria, pain; denies: dysuria, flank pain, frequency, incontinence, penile discharge, penile sore, testicle pain, testicle swelling, urgency, others Neurological: denies: dizziness, fainting, headache, left sided numbness, left sided weakness, numbness, paresthesia, pre-existing deficit, right sided numbness, right sided weakness, seizure, speech problems, tingling, tremors, weakness, others Musculoskeletal: denies: back pain, gout, joint pain, joint swelling, muscle pain, muscle stiffness, neck pain, others Integumetry: denies: bruises, change in color, change in hair/nails, dryness, laceration, lesions, lumps, rash, wounds, others Allergic/Immunocompromised: denies: Difficulty Healing, Frequent Infections, Hives, Itching, others Hematologic/Lymphatic: denies: anemia, blood clots, easy bleeding, easy bruising, swollen glands, others Endocrine: denies: excessive hunger, excessive sweating, excessive thirst, excessive urination, flushing, intolerance to cold, intolerance to heat, unexplained weight gain, unexplained weight loss, others Psychiatric: denies: anxiety, bipolar disorder, depression, hopeless, panic disorder, schizophrenia, sleepless, suicidal, others All Other Systems: Reviewed and Negative Physical Exam General Appearance: Moderate Distress, Normal HEENT: Normal ENT Inspection, Pharynx Normal, TMs Normal Neck: Full Range of Motion, Non-Tender, Normal, Normal Inspection Respiratory: Chest Non-Tender, Lungs Clear, No Accessory Muscle Use, No Respiratory Distress, Normal Breath Sounds Cardiovascular: No Edema, No JVD, No Murmur, No Gallop, Normal Peripheral Pulses, Regular Rate/Rhythm Breast Exam: Deferred Gastrointestinal: No Organomegaly, Non Tender, No Pulsatile Mass, Normal Bowel Sounds, Soft Genitalia: Deferred Pelvic: Deferred Rectal: Deferred Extremities: No calf tenderness, Normal capillary refill, Normal inspection, Normal range of motion, Non-tender, No pedal edema Musculoskeletal : Apperance: Normal Neurologic: Alert, engraver jewelry II-XII nml as Tested, No Motor Deficits, Normal Affect, Normal Mood, No Sensory Deficits Cerebellar Function: NOT DONE Reflexes: NOT DONE Skin: Dry, Normal Color, Warm Peripheral Pulses: 3+ Radial (R), 3+ Radial (L) Lymphatic: No Adenopathy Was a procedure done? Was a procedure done?: No Differential Dx Considerations may include: Hematuria Electrolyte imbalance X-Ray, Labs, Meds, VS Vital Signs Date Time Temp Pulse Resp B/P (MAP) Pulse Ox O2 Delivery O2 Flow Rate FiO2 04/25/25 08:16 184/76 04/25/25 07:36 76 16 95 Room Air* 0 21 04/25/25 07:36 97.1 76 16 177/86 (116) 95 97.1 04/25/25 06:32 193/115 04/25/25 06:20 69 14 94 Room Air* 0 21 04/25/25 06:17 98.4 69 14 193/115 (141) 94 98.4 04/25/25 05:38 97.6 74 18 231/110 (150) 97 97.6 04/25/25 05:35 73 Lab Test 04/25/25 07:05 04/25/25 06:50 04/25/25 05:40 Range/Units POC Glucose 153 H 70-106 mg/dl Urine Color Colorless Yellow Urine Clarity Clear Clear Urine pH 7.0 5.0-9.0 Urine Specific [place] 1.003 1.001-1.035 Urine Protein Negative Negative Urine Ketones Negative Negative Urine Blood Negative Negative /uL Urine Nitrite Negative Negative Urine Bilirubin Negative Negative Urine Urobilinogen Normal Negative mg/dL Urine Leukocyte Esterase Negative Negative /uL Urine RBC <1 0 - 3 /hpf Urine Microscopic WBC < 1 0-3 /HPF Urine Squamous Epithelial Cells None seen <5 /hpf Urine Bacteria None seen None Seen /hpf Urine Glucose 4+ H Normal mg/dL White Blood Count 8.4 4.4-10.8 10^3/uL Red Blood Count 5.60 4.5-5.90 10^6/uL Hemoglobin 16.6 13.5-17.5 g/dL Hematocrit 47.8 41.0-53.0 % Mean Corpuscular Volume 85.3 80.0-100.0 fL Mean Corpuscular Hemoglobin 29.6 28.0-32.0 pg Mean Corpuscular Hemoglobin Concent 34.7 32.0-36.0 g/dL Red Cell Distribution Width 13.7 11.8-14.3 % Platelet Count 218 140-450 10^3/uL Mean Platelet Volume 9.6 6.9-10.8 fL Neutrophils (%) (Auto) 67.5 37.0-80.0 % Lymphocytes (%) (Auto) 22.4 10.0-50.0 % Monocytes (%) (Auto) 5.1 0.0-12.0 % Eosinophils (%) (Auto) 4.3 0.0-7.0 % Basophils (%) (Auto) 0.7 0.0-2.0 % Neutrophils # (Auto) 5.7 1.6-8.6 10 ^3/uL Lymphocytes # (Auto) 1.9 0.4-5.4 10 ^3/uL Monocytes # (Auto) 0.4 0-1.3 10 ^3/uL Eosinophils # (Auto) 0.4 0-0.8 10 ^3/uL Basophils # (Auto) 0.1 0-0.2 10 ^3/uL Nucleated Red Blood Cells 0.2 % Sodium Level 140 136-145 mmol/L Potassium Level 4.2 3.5-5.1 mmol/L Chloride Level 105 98-107 mmol/L Carbon Dioxide Level 25 20-31 mmol/L Anion Gap 10 5-15 Blood Urea Nitrogen 18 9-23 mg/dL Creatinine 1.17 0.700-1.30 mg/dL Glomerular Filtration Rate Calc 63 >90 mL/min BUN/Creatinine Ratio 15.4 10.0-20.0 Serum Glucose 153 H 74-106 mg/dL Calcium Level 10.2 8.7-10.4 mg/dL Troponin I High Sensitivity 74 *H </=54 ng/L Current Medications Medications (Trade) Dose Ordered Sig/Qing Route Start Time Stop Time Status Last Admin Hydralazine HCl (Apresoline Injection) 10 mg ONCE ONCE IV 04/25/25 06:30 04/25/25 06:31 DC 04/25/25 06:32 Aspirin 325 mg ONCE ONCE PO 04/25/25 07:30 04/25/25 07:36 DC 04/25/25 08:15 Clonidine HCl (Catapres Tablet) 0.1 mg ONCE ONCE PO 04/25/25 07:30 04/25/25 07:36 DC 04/25/25 08:16 Enoxaparin Sodium (Lovenox) 70 mg ONCE ONCE SC 04/25/25 07:45 04/25/25 07:46 DC 04/25/25 08:16 Patient alert. Blood pressure elevated. Complaining of blood in the urine. Vitals stable. Was given hydralazine. Reviewed his history. Explained to the patient. Continue monitoring. Time of 1ST Reevaluation: 06:49 Reevaluation 1ST: Unchanged Patient Education/Counseling: Diagnosis, Treatment, Need For Follow Up Family Education/Counseling: Diagnosis, Treatment, Need For Follow Up SEPSIS Sepsis Screen Date sepsis recognized/suspect: Apr 25, 2025 Time Sepsis recognized/suspect: 529 Recent Procedure: No On Antibiotic Therapy: No Respiratory Rate >20: No Heart Rate >90: No Temp<36 C (96.8 F) or >38.3 C: No SBP <90 or MAP <65 mmHG: No New Acute Mental Status Change: No Is the patient on CPAP, BIPAP,: No Physician Orders Electrocardigram (04/25/25 05:43) Aspirin Tablet (04/25/25 10:00) Clonidine Hcl Tablet (Catapres Tablet) (04/25/25 09:00) Carvedilol Tablet (Coreg Tablet) (04/25/25 10:00) Atorvastatin (Lipitor) (04/25/25 22:00) Tamsulosin Hydrochloride (Flomax) (04/25/25 18:00) Consistent Carb(Ccho)Diabetes (04/25/25 Breakfast) Clopidogrel Bisulfate (Plavix) (04/25/25 10:00) Famotidine Injection (Pepcid Injection) (04/25/25 10:00) Lisinopril Tablet (Zestril Tablet) (04/25/25 10:00) Glucose Blood (Accu-Chek Comfort Curve T (04/25/25 11:30) Insulin R (Human) (Insulin R) (04/25/25 22:00) Insulin R (Human) (Insulin R) (04/25/25 11:30) Dextrose 50% Syringe (04/25/25 09:00) Allergies (04/25/25 08:55) Code Status (04/25/25 08:55) Sodium Chloride Lock (Saline Lock Ns) (04/25/25 14:00) Oxygen Per Hour (04/25/25 08:55) Hydrocodone-Acet 5/325mg Tab (Sigel (04/25/25 09:00) Ondansetron Hcl (Zofran) (04/25/25 09:00) Docusate Sodium Capsule (Colace Capsule) (04/25/25 09:00) Fall Risk Precautions In Place QSHIFT (04/25/25 08:55) Complete Blood Count (04/26/25 04:00) Comprehensive Metabolic Panel (04/26/25 04:00) Condition: Serious (04/25/25 08:55) Acetaminophen Tablet (Tylenol Tablet) (04/25/25 09:00) Maintain Bed Rest (04/25/25 08:55) Sequential Compression Device (04/25/25 ) Nitroglycerin Sublingual (Ntrostat Subli (04/25/25 09:00) Morphine Sulfate Injection (04/25/25 09:00) Stat Ekg For Chest Pain (04/25/25 08:55) Notify Md Of Changes From Base (04/25/25 08:55) Principal Trainer For 24 Hours (04/25/25 08:55) Emergency Dysrhythmia Protocol (04/25/25 08:55) Rhythm Strips Once Every Shift (04/25/25 08:55) Oxygen By Nasal Cannula (04/25/25 08:55) Amlodipine Tablet (Norvasc Tablet) (04/26/25 10:00) Vital Signs Date Time Temp Pulse Resp B/P (MAP) Pulse Ox O2 Delivery O2 Flow Rate FiO2 04/25/25 08:16 184/76 04/25/25 07:36 76 16 95 Room Air* 0 21 04/25/25 07:36 97.1 76 16 177/86 (116) 95 97.1 04/25/25 06:32 193/115 04/25/25 06:20 69 14 94 Room Air* 0 21 04/25/25 06:17 98.4 69 14 193/115 (141) 94 98.4 04/25/25 05:38 97.6 74 18 231/110 (150) 97 97.6 04/25/25 05:35 73 Laboratory Tests Test 04/25/25 05:40 White Blood Count 8.4 10^3/uL (4.4-10.8) Medications Medications Dose Ordered Sig/Qing Route Start Time Stop Time Status Last Admin Dose Admin Aspirin 325 mg ONCE ONCE PO 04/25/25 07:30 04/25/25 07:36 DC 04/25/25 08:15 Clonidine HCl 0.1 mg ONCE ONCE PO 04/25/25 07:30 04/25/25 07:36 DC 04/25/25 08:16 Enoxaparin Sodium 70 mg ONCE ONCE SC 04/25/25 07:45 04/25/25 07:46 DC 04/25/25 08:16 Hydralazine HCl 10 mg ONCE ONCE IV 04/25/25 06:30 04/25/25 06:31 DC 04/25/25 06:32 Departure 1 Departure Time of Disposition: 06:50 Impression: Primary Impression: Hypertensive emergency Additional Impressions: Demand ischemia Uncontrolled diabetes mellitus Qualified Codes: E13.65 - Other specified diabetes mellitus with hyperglycemia Disposition: ADMITTED INPATIENT Admit to: Med Surg Condition: Guarded Critical Care Note Critical Care Time?: Yes (90 min-critical care time only) Critical care comment: Cardiac marker elevated Stability Stability form required: No Heart Score Heart Score: Heart Score Response (Comments) Value History Slightly Suspicious 0 EKG Normal 0 Age >65 2 Risk Factors >3 or Hx ASHD 2 Troponin 1-2 x's Normal limit 1 Total 5 I personally scribed for ELIZABETH ALLEN MD ([email or web address]) on 04/25/25 at 06:25. Electronically submitted by Andrés Tellez ([email or web address]). ELIZABETH ALLEN MD Apr 25, 2025 06:25
[2025-04-25] MEDS: hydrALAZINE HCL 20 MG/ML VL IV ONE (06:32)
[2025-04-25 06:46] LABS: Chloride 105 mmol/L (98-107); Potassium 4.2 mmol/L (3.5-5.1); Sodium 140 mmol/L (136-145)
[2025-04-25 06:47] LABS: Anion Gap 10 (5-15); Carbon Dioxide 25 mmol/L (20-31)
[2025-04-25 06:48] LABS: Calcium 10.2 mg/dL (8.7-10.4)
[2025-04-25 06:51] LABS: Hematocrit 47.8 % (41.0-53.0); Hemoglobin 16.6 g/dL (13.5-17.5); Mean Corpuscular Hemoglobin 29.6 pg (28.0-32.0); Mean Corpuscular Volume 85.3 fL (80.0-100.0); Nucleated Red Blood Cells % 0.2 %
[2025-04-25 06:52] LABS: BUN/Creatinine Ratio 15.4 (10.0-20.0); Blood Urea Nitrogen 18 mg/dL (9-23)
[2025-04-25 06:57] LABS: Glucose 153 mg/dL (74-106)
[2025-04-25 07:18] LABS: Urine Protein, UAD Negative (Negative)
[2025-04-25 07:36] VITALS: PULSE 76; RESP 16; O2SAT 95
[2025-04-25] MEDS: ENOXAPARIN SOD 80 MG/0.8ML SYRINGE SC ONE (08:16)
[2025-04-25] MEDS ORDERED: DOCUSATE SOD 100 MG CAP PO PRN (09:00)
[2025-04-25] MEDS ORDERED: ACETAMINOPHEN 325 MG TAB PO PRN (09:00)
[2025-04-25] MEDS ORDERED: ONDANSETRON HCL 4 MG/2 ML VIAL IV PRN (09:00)
[2025-04-25] MEDS ORDERED: DEXTROSE (50%) 50ML SYRG IV PRN (09:00)
[2025-04-25] MEDS ORDERED: NITROGLYCERIN 0.4 MG SL TAB SL PRN (09:00)
[2025-04-25] MEDS ORDERED: MORPHINE SULFATE INJ 2 MG/ml SYRG IV PRN (09:00)
[2025-04-25] MEDS ORDERED: HYDROcodone-ACET 5/325MG TAB PO PRN (09:00)
--- NOTE | 2025-04-25 09:04 | DVHHP2 ---
History of Present Illness Reason for Visit: Hypertensive emergency History of Present Illness The patient is a 80-year-old male with past medical history of angina, DM, GERD, TIA, hypertension, and hyperlipidemia who presented to [facility] ED with complaint of hematuria. Patient reports he has been experiencing hematuria, associated with burning sensation with urination, getting worse that prompted this visit. Patient was seen and evaluated in the ED, laboratory data shows WBC 8.4, platelets 218, sodium 140, potassium 4.2, BUN 18, creatinine 1.17, glucose 153, calcium 10.2, troponin 74, blood pressure 231/110 trending down to 136/86, pulse 76, temperature 97.6 F, O2 saturation 95% on room air. Patient was admitted for further evaluation and medical management. Past Medical History Angina, DM, GERD, High Lipids, HTN, TIA Past Surgical History Denies all surgeries Family History Reviewed, noncontributory to the management of this case. Past Social History The patient lives at home, denies smoking, alcohol or illicit drugs abuse. Review of Systems Constitutional: Yes: Weakness; No: Fever, Chills, Sweats, Malaise, Other Eyes: No: Pain, Vision change, Conjunctivae inflammation, Eyelid inflammation, Other, Redness ENT: No: Ear pain, Ear discharge, Nose pain, Nose discharge, Nose congestion, Mouth pain, Mouth swelling, Throat pain, Throat swelling, Other Respiratory: No: Cough, Dry, Shortness of breath, SOB with excertion, Wheezing, Hemoptysis, Pleuritic Pain, Sputum, Wheezing, Other Cardiovascular: No: Chest Pain, Palpitations, Orthopnea, Paroxysmal Noc. Dyspnea, Edema, Lt Headedness, Other Gastrointestinal: No: Nausea, Vomiting, Abdominal Pain, Diarrhea, Constipation, Melena, Hematochezia, Other Genitourinary: Dysuria; No Frequency, No Incontinence; Hematuria; No Retention; Other (Pain) Musculoskeletal: No: other, neck pain, shoulder pain, arm pain, back pain, hand pain, leg pain, foot pain Skin: No: Rash, Lesions, Jaundice, Bruising, Other Neurological: No: Weakness, Numbness, Incoordination, Change in speech, Confusion, Seizures, Other Allergies: Coded Allergies: NO KNOWN ALLERGIES (Unverified , 05/02/22) Exam Vital Signs Vital Signs Date Time Temp Pulse Resp B/P (MAP) Pulse Ox O2 Delivery O2 Flow Rate FiO2 04/25/25 08:16 184/76 04/25/25 07:36 76 16 95 Room Air* 0 21 04/25/25 07:36 97.1 97.1 General Appearance: Alert, Oriented X3, Cooperative, No acute distress HEENT: Atraumatic, PERRLA, EOMI, Mucous membr. moist/pink Respiratory: Normal air movement Cardiovascular: Regular rate, Normal S1, Normal S2, No murmurs Abdominal: Normal bowel sounds, Soft, No tenderness, No hepatospenomegaly, No masses Extremities: No clubbing, No cyanosis, No edema, Normal pulses, No tenderness/swelling Skin: No rashes, No breakdown, No significant lesion Neuro: Normal speech, Normal tone, Sensation intact, Cranial nerves 3-12 NL, Reflexes 2+, Other (Generalized weakness) Psych/Mental Status: Mental status NL, Mood NL Labs/Xrays Labs Test 04/25/25 07:05 04/25/25 06:50 04/25/25 05:40 Range/Units POC Glucose 153 H 70-106 mg/dl Urine Color Colorless Yellow Urine Clarity Clear Clear Urine pH 7.0 5.0-9.0 Urine Specific [place] 1.003 1.001-1.035 Urine Protein Negative Negative Urine Ketones Negative Negative Urine Blood Negative Negative /uL Urine Nitrite Negative Negative Urine Bilirubin Negative Negative Urine Urobilinogen Normal Negative mg/dL Urine Leukocyte Esterase Negative Negative /uL Urine RBC <1 0 - 3 /hpf Urine Microscopic WBC < 1 0-3 /HPF Urine Squamous Epithelial Cells None seen <5 /hpf Urine Bacteria None seen None Seen /hpf Urine Glucose 4+ H Normal mg/dL White Blood Count 8.4 4.4-10.8 10^3/uL Red Blood Count 5.60 4.5-5.90 10^6/uL Hemoglobin 16.6 13.5-17.5 g/dL Hematocrit 47.8 41.0-53.0 % Mean Corpuscular Volume 85.3 80.0-100.0 fL Mean Corpuscular Hemoglobin 29.6 28.0-32.0 pg Mean Corpuscular Hemoglobin Concent 34.7 32.0-36.0 g/dL Red Cell Distribution Width 13.7 11.8-14.3 % Platelet Count 218 140-450 10^3/uL Mean Platelet Volume 9.6 6.9-10.8 fL Neutrophils (%) (Auto) 67.5 37.0-80.0 % Lymphocytes (%) (Auto) 22.4 10.0-50.0 % Monocytes (%) (Auto) 5.1 0.0-12.0 % Eosinophils (%) (Auto) 4.3 0.0-7.0 % Basophils (%) (Auto) 0.7 0.0-2.0 % Neutrophils # (Auto) 5.7 1.6-8.6 10 ^3/uL Lymphocytes # (Auto) 1.9 0.4-5.4 10 ^3/uL Monocytes # (Auto) 0.4 0-1.3 10 ^3/uL Eosinophils # (Auto) 0.4 0-0.8 10 ^3/uL Basophils # (Auto) 0.1 0-0.2 10 ^3/uL Nucleated Red Blood Cells 0.2 % Sodium Level 140 136-145 mmol/L Potassium Level 4.2 3.5-5.1 mmol/L Chloride Level 105 98-107 mmol/L Carbon Dioxide Level 25 20-31 mmol/L Anion Gap 10 5-15 Blood Urea Nitrogen 18 9-23 mg/dL Creatinine 1.17 0.700-1.30 mg/dL Glomerular Filtration Rate Calc 63 >90 mL/min BUN/Creatinine Ratio 15.4 10.0-20.0 Serum Glucose 153 H 74-106 mg/dL Calcium Level 10.2 8.7-10.4 mg/dL Troponin I High Sensitivity 74 *H </=54 ng/L Assessment/Plan Assessment/Plan Hypertensive emergency Demand ischemia Elevated troponin Uncontrolled diabetes mellitus Generalized weakness Other specified diabetes mellitus with hyperglycemia Plan 1. Admit to telemetry unit 2. Breathing treatment 3. Pain control management 4. Management of fluids and electrolytes 5. Consultation for Cardiology 6. Diagnostic tests chest x-ray 7. DVT prophylaxis-on aspirin 8. Repeat labs CBC, CMP in a.m. 9. Continue with current medical management 10. Treatment plan discussed with patient and RN. Patient verbalized understanding. Plan discussed with: Patient, Other (RN) My Orders Orders - JHONNY VELASCO DNP Procedure Category Date Status Time Aspirin Tablet PHA 04/25/25 Verified 10:00 Amlodipine Tablet PHA 04/25/25 Verified (Norvasc Tablet) 09:00 Amlodipine Tablet PHA 04/25/25 Verified (Norvasc Tablet) 10:00 Clonidine Hcl Tablet PHA 04/25/25 Verified (Catapres Tablet) 09:00 Carvedilol Tablet PHA 04/25/25 Verified (Coreg Tablet) 10:00 Atorvastatin (Lipitor) PHA 04/25/25 Verified 22:00 Problem List: (1) Hypertensive emergency (2) Demand ischemia (3) Elevated troponin (4) Uncontrolled diabetes mellitus (5) Generalized weakness (6) Other specified diabetes mellitus with hyperglycemia Date of Service: Apr 25, 2025 Billing Provider: JHONNY VELASCO DNP Common Visit Codes: 55063-NONREGA INP/OBS CARE (HIGH) JHONNY VELASCO DNP Apr 25, 2025 09:04
[2025-04-25] MEDS: FAMOTIDINE (10MG/ML) 2ML VL IV SCH (10:28)
[2025-04-25] MEDS: CARVEDILOL 12.5 MG TAB PO SCH (10:30)
[2025-04-25] MEDS: CLOPIDOGREL BISULFATE 75 MG TAB PO SCH (10:30)
[2025-04-25] MEDS: LISINOPRIL 20 MG TAB PO SCH (10:31)
[2025-04-25] MEDS: InsuLIN REG 1unit/0.01ml Soln (100units/ml) SC SCH ×2 (11:43→22:19)
[2025-04-25] MEDS: ACCU-CHEK COMFORT CURVE STRIP VI SCH (11:43)
[2025-04-25] MEDS: SODIUM CHLOR 0.9% PF (SALINE LOCK) 10ML VIAL/SYR IV SCH (14:17)
[2025-04-25 17:26] VITALS: PULSE 59; RESP 16
[2025-04-25] MEDS: TAMSULOSIN HYDROCHLORIDE 0.4 MG CAP PO SCH (19:00)
[2025-04-25 20:00] VITALS: PULSE 62; RESP 18; O2SAT 96
[2025-04-25 21:00] VITALS: BP 151/77; PULSE 62; RESP 18; TEMP 97.5; O2SAT 96
[2025-04-25] MEDS: ATORVASTATIN 20 MG TAB PO SCH (22:06)
[2025-04-26] VITALS (8 sets, daily range): BP systolic 86–152; BP diastolic 54–79; PULSE 52–64; RESP 18–20; TEMP 95.6–97.9; O2SAT 96–99
[2025-04-26 05:58] LABS: Hematocrit 47.3 % (41.0-53.0); Hemoglobin 15.9 g/dL (13.5-17.5); Mean Corpuscular Hemoglobin 28.5 pg (28.0-32.0); Mean Corpuscular Volume 84.6 fL (80.0-100.0); Nucleated Red Blood Cells % 0.1 %
[2025-04-26 06:17] LABS: Alanine Aminotransferase 13 U/L (7-40); Albumin 4.6 g/dL (3.2-4.8); Alkaline Phosphatase 107 U/L (46-116); Anion Gap 10 (5-15); BUN/Creatinine Ratio 21.1 (10.0-20.0); Calcium 9.7 mg/dL (8.7-10.4); Carbon Dioxide 22 mmol/L (20-31); Potassium 3.9 mmol/L (3.5-5.1); Sodium 141 mmol/L (136-145); Total Protein 7.1 g/dL (5.7-8.2)
[2025-04-26 06:18] LABS: Bilirubin, Total 0.5 mg/dL (0.2-1.0)
[2025-04-26 06:19] LABS: Blood Urea Nitrogen 24 mg/dL (9-23); Chloride 109 mmol/L (98-107); Glucose 130 mg/dL (74-106)
--- NOTE | 2025-04-26 10:33 | DVHPN2 ---
Reviewed: Care Plan, H&P, Labs Changes from previous H/P or p: No Changes General: Per HPI Eyes: No Pain, No Vision change, No Conjunctivae inflammation, No Eyelid inflammation, No Other, No Redness ENT: No Ear pain, No Ear discharge, No Nose pain, No Nose discharge, No Nose congestion, No Mouth pain, No Mouth swelling, No Throat pain, No Throat swelling, No Other Cardiovascular: No Chest Pain, No Palpitations, No Orthopnea, No Paroxysmal Noc. Dyspnea, No Edema, No Lt Headedness, No Other Respiratory: No Cough, No Dry, No Shortness of breath, No SOB with excertion, No Wheezing, No Hemoptysis, No Pleuritic Pain, No Sputum, No Other Gastrointestinal: No Nausea, No Vomiting, No Abdominal Pain, No Diarrhea, No Constipation, No Melena, No Hematochezia, No Other Genitourinary: Dysuria; No Frequency, No Incontinence; Hematuria; No Retention; Other (Pain) Musculoskeletal: No other, No neck pain, No shoulder pain, No arm pain, No back pain, No hand pain, No leg pain, No foot pain Skin: No Rash, No Lesions, No Jaundice, No Bruising, No Other Objective Vitals Vital Signs Date Time Temp Pulse Resp B/P (MAP) Pulse Ox O2 Delivery O2 Flow Rate FiO2 04/26/25 10:02 129/77 04/26/25 10:01 66 04/26/25 05:00 97.9 18 97 97.9 04/25/25 20:00 Room Air* 0 21 Intake/Output Intake and Output 04/26/25 07:00 Intake Total 300 ml Output Total 700 ml Balance -400 ml Intake Oral 300 ml Output Urine Total 700 ml # Voids 3 Medications Current Medications Medications Dose Ordered Sig/Qing Route Start Time Stop Time Status Last Admin Dose Admin Aspirin 81 mg DAILY PO 04/25/25 10:00 04/26/25 10:03 81 MG Amlodipine Besylate 10 mg DAILY PO 04/26/25 10:00 04/26/25 10:02 10 MG Clonidine HCl 0.2 mg Q6HP PRN PO 04/25/25 09:00 04/26/25 05:37 0.2 MG Carvedilol 12.5 mg Q12HR PO 04/25/25 10:00 04/26/25 10:01 12.5 MG Atorvastatin Calcium 20 mg HS PO 04/25/25 22:00 04/25/25 22:06 20 MG Tamsulosin HCl 0.4 mg QPM PO 04/25/25 18:00 04/25/25 19:00 0.4 MG Clopidogrel Bisulfate 75 mg DAILY PO 04/25/25 10:00 04/26/25 10:02 75 MG Famotidine 20 mg Q12HR IV 04/25/25 10:00 04/26/25 10:03 20 MG Lisinopril 20 mg DAILY PO 04/25/25 10:00 04/26/25 10:02 20 MG Diagnostic Test (Pha) 1 strip ACHS 04/25/25 11:30 04/26/25 05:42 1 STRIP Insulin Human Regular HS SC 04/25/25 22:00 04/25/25 22:19 2 UNITS Insulin Human Regular AC SC 04/25/25 11:30 04/26/25 05:48 2 UNITS Dextrose 50 ml UD PRN IV 04/25/25 09:00 Sodium Chloride 10 ml Q8HR IV 04/25/25 14:00 04/26/25 05:42 10 ML Acetaminophen/ Hydrocodone Bitart 1 tab Q4HP PRN PO 04/25/25 09:00 Ondansetron HCl 4 mg Q4HP PRN IV 04/25/25 09:00 Docusate Sodium 100 mg BIDPRN PRN PO 04/25/25 09:00 Acetaminophen 650 mg Q6HP PRN PO 04/25/25 09:00 Nitroglycerin 0.4 mg Q5MINP PRN SL 04/25/25 09:00 Morphine Sulfate 2 mg Q30M PRN IV 04/25/25 09:00 Laboratory Results Laboratory Tests 04/26/25 05:15 Chemistry Test 04/26/25 05:15 Albumin 4.6 g/dL (3.2-4.8) Calcium Level 9.7 mg/dL (8.7-10.4) Total Protein 7.1 g/dL (5.7-8.2) LFT Test 04/26/25 05:15 Alanine Aminotransferase (ALT) 13 U/L (7-40) Alkaline Phosphatase 107 U/L (46-116) Aspartate Amino Transferase (AST) 16 U/L (13-40) Total Bilirubin 0.5 mg/dL (0.2-1.0) Urinalysis Test 04/25/25 06:50 Urine Color Colorless (Yellow) Urine Clarity Clear (Clear) Urine pH 7.0 (5.0-9.0) Urine Specific [place] 1.003 (1.001-1.035) Urine Protein Negative (Negative) Urine Ketones Negative (Negative) Urine Blood Negative /uL (Negative) Urine Nitrite Negative (Negative) Urine Bilirubin Negative (Negative) Urine Urobilinogen Normal mg/dL (Negative) Urine Leukocyte Esterase Negative /uL (Negative) Urine RBC <1 /hpf (0 - 3) Urine Microscopic WBC < 1 /HPF (0-3) Urine Squamous Epithelial Cells None seen /hpf (<5) Urine Bacteria None seen /hpf (None Seen) Urine Glucose 4+ mg/dL (Normal) H Assessment/Plan Assessment/Plan The patient is a 80-year-old male with past medical history of angina, DM, GERD, TIA, hypertension, and hyperlipidemia who presented to [facility] ED with complaint of hematuria. Patient reports he has been experiencing hematuria, associated with burning sensation with urination, getting worse that prompted this visit. Patient was seen and evaluated in the ED, laboratory data shows WBC 8.4, platelets 218, sodium 140, potassium 4.2, BUN 18, creatinine 1.17, glucose 153, calcium 10.2, troponin 74, blood pressure 231/110 trending down to 136/86, pulse 76, temperature 97.6 F, O2 saturation 95% on room air. Patient was admitted for further evaluation and medical management. Hypertensive emergency Demand ischemia Elevated troponin Uncontrolled diabetes mellitus Generalized weakness Other specified diabetes mellitus with hyperglycemia 04/26/2025 Patient is admitted for hypertensive emergency, which is improved Last known echocardiogram was done in December with EF of more than 55% We will consult Cardiology to evaluate for chest pain and mildly elevated troponin Plan discussed with: Patient Date of Service: Apr 26, 2025 Billing Provider: ONEAL MIDDLETON DO Common Visit Codes: [id number] INP/OBS CARE(HIGH) ONEAL MIDDLETON DO Apr 26, 2025 10:33
[2025-04-27] VITALS (7 sets, daily range): BP systolic 117–166; BP diastolic 53–74; PULSE 54–95; RESP 16–18; TEMP 97.3–98.4; O2SAT 64–99
--- NOTE | 2025-04-27 11:52 | ECG ---
[facility] Test Date: 2025-04-25 Test Time: 05:35:34 Pat Name: ETHAN AVERY Department: ER Room: 0219T A Gender: M [employer]: PH : [phone] Requested By: JANEEN RÍOS Order Number: [id number] Reading MD: Jarrett Browne Measurements Intervals [place] Rate: 73 P: 47 FL: 185 QRS: 45 QRSD: 96 T: -87 QT: 379 QTc: 418 Interpretive Statements Sinus rhythm Borderline repolarization abnormality Electronically Signed On 04-30-2025 18:50:10 PDT by Jarrett Browne Please click the below link to view image of tracing.
--- NOTE | 2025-04-27 15:03 | DVHPN2 ---
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 ISCHEMIC HYPERLIPIDEMIA ACCELERATED HTN PAD S/P REVASCULARIZATION NOW WITH NORMAL TROPONIN IN RELATIONSHIP WITH MARKED ELEVATION OF BP HTN GERD DIABETES VASCULOPATHY NEPHROPATHY NEUROPATHY vital signs Vital Sign Date Time Temp Pulse Resp B/P (MAP) Pulse Ox O2 Delivery O2 Flow Rate FiO2 04/27/25 13:46 166/72 04/27/25 13:00 74 04/27/25 12:31 97.4 18 64 97.4 04/27/25 08:00 Room Air* 0 21 Total Intake and Output 04/26/25 04/26/25 04/27/25 15:00 23:00 07:00 Intake Total 1000 ml 350 ml Balance 1000 ml 350 ml medications Current Medications Medications Dose Ordered Sig/Qing Route Start Time Stop Time Status Last Admin Dose Admin Aspirin 81 mg DAILY PO 04/25/25 10:00 04/27/25 10:15 81 MG Amlodipine Besylate 10 mg DAILY PO 04/26/25 10:00 04/27/25 10:15 10 MG Clonidine HCl 0.2 mg Q6HP PRN PO 04/25/25 09:00 04/27/25 13:46 0.2 MG Carvedilol 12.5 mg Q12HR PO 04/25/25 10:00 04/27/25 10:14 12.5 MG Atorvastatin Calcium 20 mg HS PO 04/25/25 22:00 04/26/25 21:44 20 MG Tamsulosin HCl 0.4 mg QPM PO 04/25/25 18:00 04/26/25 18:51 0.4 MG Clopidogrel Bisulfate 75 mg DAILY PO 04/25/25 10:00 04/27/25 10:14 75 MG Famotidine 20 mg Q12HR IV 04/25/25 10:00 04/27/25 10:14 20 MG Lisinopril 20 mg DAILY PO 04/25/25 10:00 04/27/25 10:15 20 MG Diagnostic Test (Pha) 1 strip ACHS 04/25/25 11:30 04/27/25 11:41 1 STRIP Insulin Human Regular HS SC 04/25/25 22:00 04/26/25 21:53 6 UNITS Insulin Human Regular AC SC 04/25/25 11:30 04/27/25 11:40 12 UNITS Dextrose 50 ml UD PRN IV 04/25/25 09:00 Sodium Chloride 10 ml Q8HR IV 04/25/25 14:00 04/27/25 13:47 10 ML Acetaminophen/ Hydrocodone Bitart 1 tab Q4HP PRN PO 04/25/25 09:00 Ondansetron HCl 4 mg Q4HP PRN IV 04/25/25 09:00 Docusate Sodium 100 mg BIDPRN PRN PO 04/25/25 09:00 Acetaminophen 650 mg Q6HP PRN PO 04/25/25 09:00 Nitroglycerin 0.4 mg Q5MINP PRN SL 04/25/25 09:00 Morphine Sulfate 2 mg Q30M PRN IV 04/25/25 09:00 laboratory and microbiology Laboratory Tests 04/26/25 05:15 Test 04/26/25 05:15 Range/Units Serum Glucose 130 H 74-106 mg/dL Problem List HEMATURIA DYSURIA POLYURIA 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
--- NOTE | 2025-04-27 17:37 | DVHPN2 ---
Subjective No pain, anxious patient, Stateless-speaking only, hematuria is improving mostly clear in now. Reviewed: Care Plan, H&P, Labs Changes from previous H/P or p: No Changes General: Per HPI Eyes: No Pain, No Vision change, No Conjunctivae inflammation, No Eyelid inflammation, No Other, No Redness ENT: No Ear pain, No Ear discharge, No Nose pain, No Nose discharge, No Nose congestion, No Mouth pain, No Mouth swelling, No Throat pain, No Throat swelling, No Other Cardiovascular: No Chest Pain, No Palpitations, No Orthopnea, No Paroxysmal Noc. Dyspnea, No Edema, No Lt Headedness, No Other Respiratory: No Cough, No Dry, No Shortness of breath, No SOB with excertion, No Wheezing, No Hemoptysis, No Pleuritic Pain, No Sputum, No Other Gastrointestinal: No Nausea, No Vomiting, No Abdominal Pain, No Diarrhea, No Constipation, No Melena, No Hematochezia, No Other Genitourinary: Dysuria; No Frequency, No Incontinence; Hematuria; No Retention; Other (Pain) Musculoskeletal: No other, No neck pain, No shoulder pain, No arm pain, No back pain, No hand pain, No leg pain, No foot pain Skin: No Rash, No Lesions, No Jaundice, No Bruising, No Other Objective Vitals Vital Signs Date Time Temp Pulse Resp B/P (MAP) Pulse Ox O2 Delivery O2 Flow Rate FiO2 04/27/25 16:53 97.6 61 18 117/60 (79) 99 97.6 04/27/25 08:00 Room Air* 0 21 Intake/Output Intake and Output 04/27/25 07:00 Intake Total 1350 ml Balance 1350 ml Intake Oral 1350 ml # Voids 5 Exam GEN: Healthy appearing, well-developed, NAD. HEENT: NC/AT; MMM. CV: RRR, no m/r/g. LUNGS: CTAB, no w/r/c. ABD: Soft, NT/ND, NBS, no masses or organomegaly. EXT: skin Warm, well perfused. no rashes. No clubbing, cyanosis, or edema. NEURO: Ambulating with no limitations. No focal deficits. Medications Current Medications Medications Dose Ordered Sig/Qing Route Start Time Stop Time Status Last Admin Dose Admin Aspirin 81 mg DAILY PO 04/25/25 10:00 04/27/25 10:15 81 MG Amlodipine Besylate 10 mg DAILY PO 04/26/25 10:00 04/27/25 10:15 10 MG Clonidine HCl 0.2 mg Q6HP PRN PO 04/25/25 09:00 04/27/25 13:46 0.2 MG Carvedilol 12.5 mg Q12HR PO 04/25/25 10:00 04/27/25 10:14 12.5 MG Atorvastatin Calcium 20 mg HS PO 04/25/25 22:00 04/26/25 21:44 20 MG Tamsulosin HCl 0.4 mg QPM PO 04/25/25 18:00 04/26/25 18:51 0.4 MG Clopidogrel Bisulfate 75 mg DAILY PO 04/25/25 10:00 04/27/25 10:14 75 MG Famotidine 20 mg Q12HR IV 04/25/25 10:00 04/27/25 10:14 20 MG Lisinopril 20 mg DAILY PO 04/25/25 10:00 04/27/25 10:15 20 MG Diagnostic Test (Pha) 1 strip ACHS 04/25/25 11:30 04/27/25 11:41 1 STRIP Insulin Human Regular HS SC 04/25/25 22:00 04/26/25 21:53 6 UNITS Insulin Human Regular AC SC 04/25/25 11:30 04/27/25 11:40 12 UNITS Dextrose 50 ml UD PRN IV 04/25/25 09:00 Sodium Chloride 10 ml Q8HR IV 04/25/25 14:00 04/27/25 13:47 10 ML Acetaminophen/ Hydrocodone Bitart 1 tab Q4HP PRN PO 04/25/25 09:00 Ondansetron HCl 4 mg Q4HP PRN IV 04/25/25 09:00 Docusate Sodium 100 mg BIDPRN PRN PO 04/25/25 09:00 Acetaminophen 650 mg Q6HP PRN PO 04/25/25 09:00 Nitroglycerin 0.4 mg Q5MINP PRN SL 04/25/25 09:00 Morphine Sulfate 2 mg Q30M PRN IV 04/25/25 09:00 Laboratory Results Laboratory Tests 04/26/25 05:15 Urinalysis Test 04/25/25 06:50 Urine Color Colorless (Yellow) Urine Clarity Clear (Clear) Urine pH 7.0 (5.0-9.0) Urine Specific [place] 1.003 (1.001-1.035) Urine Protein Negative (Negative) Urine Ketones Negative (Negative) Urine Blood Negative /uL (Negative) Urine Nitrite Negative (Negative) Urine Bilirubin Negative (Negative) Urine Urobilinogen Normal mg/dL (Negative) Urine Leukocyte Esterase Negative /uL (Negative) Urine RBC <1 /hpf (0 - 3) Urine Microscopic WBC < 1 /HPF (0-3) Urine Squamous Epithelial Cells None seen /hpf (<5) Urine Bacteria None seen /hpf (None Seen) Urine Glucose 4+ mg/dL (Normal) H Labs and/or images reviewed: Labs reviewed by me, Image(s) reviewed by me Assessment/Plan Assessment/Plan 04/26/2025 Patient is admitted for hypertensive emergency, which is improved Last known echocardiogram was done in December with EF of more than 55% We will consult Cardiology to evaluate for chest pain and mildly elevated troponin 04/27 taking over for patient. First day with patient. Patient here for hematuria which is resolving. Also mild troponin likely type 2 NSTEMI demand ischemia from hypertension. Patient here for hypertensive emergency. Cardiology consult to cleared for ruled out type 1 NSTEMI. Cardiology has seen today and is not concerned, likely type 2. Type 1 ruled out. Patient blood pressure remains elevated in his home meds were not started. Need to start home meds and make sure patient has good blood pressure before discharge. We will keep patient here overnight 1 more day. To evaluate. Hypertensive emergency NSTEMI type 2, likely demand ischemia, type 1 ruled out Troponinemia, see above Uncontrolled diabetes , with hyperglycemia Generalized weakness - restart all home medications. - continue sliding scale for diabetes - current blood pressure medications amlodipine 10, Coreg 12.5 b.i.d., clonidine p.r.n. SBP > on 60, lisinopril 20, hydrochlorothiazide 25, Entresto 24-26 b.i.d., Flomax 0.4 Diet cardiac/diabetic GI prophylaxis tolerating p.o. DVT prophylaxis-ambulating Tele Full code Plan discussed with: Patient My Orders Orders - FRANCISCA SUGGS MD Procedure Category Date Status Time Empagliflozin PHA 04/28/25 Transmitted (Jardiance) 10:00 Sacubitril-Valsartan PHA 04/27/25 Transmitted (Entresto 24-26 Mg 22:00 (NF) PHA 04/28/25 Transmitted Hydrochlorothiazide 10:00 Date of Service: Apr 27, 2025 Billing Provider: FRANCISCA SUGGS MD Common Visit Codes: [id number] INP/OBS CARE(HIGH) FRANCISCA SUGGS MD Apr 27, 2025 17:37
[2025-04-27] MEDS ORDERED: SACUBITRIL-VALSARTAN 24mg/26mg TAB PO SCH (22:00)
[2025-04-28] VITALS (7 sets, daily range): BP systolic 122–179; BP diastolic 56–72; PULSE 56–68; RESP 17–18; TEMP 37.1; O2SAT 97–98
[2025-04-28 07:19] LABS: Anion Gap 11 (5-15); Carbon Dioxide 21 mmol/L (20-31); Potassium 4.1 mmol/L (3.5-5.1); Sodium 140 mmol/L (136-145)
[2025-04-28 07:20] LABS: Calcium 9.6 mg/dL (8.7-10.4)
[2025-04-28 07:21] LABS: Chloride 108 mmol/L (98-107)
[2025-04-28 07:25] LABS: BUN/Creatinine Ratio 21.2 (10.0-20.0); Blood Urea Nitrogen 22 mg/dL (9-23); Glucose 148 mg/dL (74-106)
[2025-04-28] MEDS: EMPAGLIFLOZIN 10 MG TAB PO SCH (09:45)
[2025-04-28] MEDS: hydroCHLOROthiazide 25 MG TAB PO SCH (09:45)
--- NOTE | 2025-04-28 13:26 | DVHPN2 ---
Progress Note - Dictate Date Seen: Apr 28, 2025 Medical Necessity Reason Pt with a Central, PICC or Fol: No Subjective PT PRESENTED WITH HEMATURIA DYSURIA POLYURIA PMH: ORGANIC HD CAD STRESS CARDIOLITE 2023 NON ISCHEMIC HYPERLIPIDEMIA ACCELERATED HTN PAD S/P REVASCULARIZATION NOW WITH NORMAL TROPONIN IN RELATIONSHIP WITH MARKED ELEVATION OF BP HTN GERD DIABETES VASCULOPATHY NEPHROPATHY NEUROPATHY vital signs Vital Sign Date Time Temp Pulse Resp B/P (MAP) Pulse Ox O2 Delivery O2 Flow Rate FiO2 04/28/25 12:27 98.7 60 18 152/72 (98) 97 98.7 04/28/25 08:26 Room Air* 0 21 Total Intake and Output 04/27/25 04/27/25 04/28/25 15:00 23:00 07:00 Intake Total 800 ml 200 ml Balance 800 ml 200 ml medications Current Medications Medications Dose Ordered Sig/Qing Route Start Time Stop Time Status Last Admin Dose Admin Aspirin 81 mg DAILY PO 04/25/25 10:00 04/28/25 09:44 81 MG Amlodipine Besylate 10 mg DAILY PO 04/26/25 10:00 04/27/25 10:15 10 MG Clonidine HCl 0.2 mg Q6HP PRN PO 04/25/25 09:00 04/27/25 13:46 0.2 MG Carvedilol 12.5 mg Q12HR PO 04/25/25 10:00 04/28/25 09:44 12.5 MG Atorvastatin Calcium 20 mg HS PO 04/25/25 22:00 04/27/25 21:42 20 MG Tamsulosin HCl 0.4 mg QPM PO 04/25/25 18:00 04/27/25 17:57 0.4 MG Clopidogrel Bisulfate 75 mg DAILY PO 04/25/25 10:00 04/28/25 09:45 75 MG Famotidine 20 mg Q12HR IV 04/25/25 10:00 04/28/25 09:44 20 MG Diagnostic Test (Pha) 1 strip ACHS 04/25/25 11:30 04/28/25 11:24 1 STRIP Insulin Human Regular HS SC 04/25/25 22:00 04/26/25 21:53 6 UNITS Insulin Human Regular AC SC 04/25/25 11:30 04/28/25 11:27 6 UNITS Dextrose 50 ml UD PRN IV 04/25/25 09:00 Sodium Chloride 10 ml Q8HR IV 04/25/25 14:00 04/28/25 05:48 10 ML Acetaminophen/ Hydrocodone Bitart 1 tab Q4HP PRN PO 04/25/25 09:00 Ondansetron HCl 4 mg Q4HP PRN IV 04/25/25 09:00 Docusate Sodium 100 mg BIDPRN PRN PO 04/25/25 09:00 Acetaminophen 650 mg Q6HP PRN PO 04/25/25 09:00 Nitroglycerin 0.4 mg Q5MINP PRN SL 04/25/25 09:00 Morphine Sulfate 2 mg Q30M PRN IV 04/25/25 09:00 Empaglifozin 10 mg DAILY PO 04/28/25 10:00 04/28/25 09:45 10 MG Hydrochlorothiazide 12.5 mg DAILY PO 04/28/25 10:00 04/28/25 09:45 12.5 MG Sacubitril/ Valsartan 1 tab BID PO 04/28/25 22:00 laboratory and microbiology Laboratory Tests 04/28/25 05:42 04/26/25 05:15 Test 04/28/25 05:42 Range/Units Serum Glucose 148 H 74-106 mg/dL Problem List HEMATURIA DYSURIA POLYURIA PMH: ORGANIC HD CAD STRESS CARDIOLITE 2023 NON ISCHEMIC HYPERLIPIDEMIA ACCELERATED HTN PAD S/P REVASCULARIZATION NOW WITH NORMAL TROPONIN IN RELATIONSHIP WITH MARKED ELEVATION OF BP HTN GERD DIABETES VASCULOPATHY NEPHROPATHY NEUROPATHY Assessment/Plan NON CARDIAC ISSUE FOR NOW CONSIDER RENL U/S UA NEGATIVE HEMATURIA OF INFECTION MAY DC HOME OUTPT WORK CARDIAC W/U titrate entresto to tid BP PROFILE STILL NOT ADEQUATELY CONTROLLED Plan discussed with: Patient CARLOS SCHNEIDER MD Apr 28, 2025 13:26
[2025-04-28] MEDS ORDERED: SACU1TAB PO (14:35)
--- NOTE | 2025-04-28 14:46 | DVHDS2 ---
Discharge Summary Date of Admission Apr 25, 2025 at 09:03 Date of Discharge: Apr 28, 2025 Labs/Diagnostic Data: Laboratory Results Test 04/28/25 11:23 04/28/25 05:42 04/26/25 05:15 04/25/25 06:50 POC Glucose 229 mg/dl (70-106) Sodium Level 140 mmol/L (136-145) Potassium Level 4.1 mmol/L (3.5-5.1) Chloride Level 108 mmol/L (98-107) Carbon Dioxide Level 21 mmol/L (20-31) Anion Gap 11 (5-15) Blood Urea Nitrogen 22 mg/dL (9-23) Creatinine 1.04 mg/dL (0.700-1.30) Glomerular Filtration Rate Calc 72 mL/min (>90) BUN/Creatinine Ratio 21.2 (10.0-20.0) Serum Glucose 148 mg/dL (74-106) Calcium Level 9.6 mg/dL (8.7-10.4) White Blood Count 7.5 10^3/uL (4.4-10.8) Red Blood Count 5.59 10^6/uL (4.5-5.90) Hemoglobin 15.9 g/dL (13.5-17.5) Hematocrit 47.3 % (41.0-53.0) Mean Corpuscular Volume 84.6 fL (80.0-100.0) Mean Corpuscular Hemoglobin 28.5 pg (28.0-32.0) Mean Corpuscular Hemoglobin Concent 33.7 g/dL (32.0-36.0) Red Cell Distribution Width 14.0 % (11.8-14.3) Platelet Count 217 10^3/uL (140-450) Mean Platelet Volume 9.6 fL (6.9-10.8) Neutrophils (%) (Auto) 67.8 % (37.0-80.0) Lymphocytes (%) (Auto) 22.5 % (10.0-50.0) Monocytes (%) (Auto) 6.0 % (0.0-12.0) Eosinophils (%) (Auto) 3.2 % (0.0-7.0) Basophils (%) (Auto) 0.5 % (0.0-2.0) Neutrophils # (Auto) 5.1 10 ^3/uL (1.6-8.6) Lymphocytes # (Auto) 1.7 10 ^3/uL (0.4-5.4) Monocytes # (Auto) 0.5 10 ^3/uL (0-1.3) Eosinophils # (Auto) 0.2 10 ^3/uL (0-0.8) Basophils # (Auto) 0 10 ^3/uL (0-0.2) Nucleated Red Blood Cells 0.1 % Total Bilirubin 0.5 mg/dL (0.2-1.0) Aspartate Amino Transferase (AST) 16 U/L (13-40) Alanine Aminotransferase (ALT) 13 U/L (7-40) Alkaline Phosphatase 107 U/L (46-116) Total Protein 7.1 g/dL (5.7-8.2) Albumin 4.6 g/dL (3.2-4.8) Urine Color Colorless (Yellow) Urine Clarity Clear (Clear) Urine pH 7.0 (5.0-9.0) Urine Specific [place] 1.003 (1.001-1.035) Urine Protein Negative (Negative) Urine Ketones Negative (Negative) Urine Blood Negative /uL (Negative) Urine Nitrite Negative (Negative) Urine Bilirubin Negative (Negative) Urine Urobilinogen Normal mg/dL (Negative) Urine Leukocyte Esterase Negative /uL (Negative) Urine RBC <1 /hpf (0 - 3) Urine Microscopic WBC < 1 /HPF (0-3) Urine Squamous Epithelial Cells None seen /hpf (<5) Urine Bacteria None seen /hpf (None Seen) Urine Glucose 4+ mg/dL (Normal) Test 04/25/25 05:40 Troponin I High Sensitivity 74 ng/L (</=54) Other Laboratory Tests 04/28/25 05:42 04/26/25 05:15 Brief Hx & Hospital Course: History of Present Illness The patient is a 80-year-old male with past medical history of angina, DM, GERD, TIA, hypertension, and hyperlipidemia who presented to [facility] ED with complaint of hematuria. Patient reports he has been experiencing hematuria, associated with burning sensation with urination, getting worse that prompted this visit. summary 04/26/2025 Patient is admitted for hypertensive emergency, which is improved . Last known echocardiogram was done in December with EF of more than 55% . We will consult Cardiology to evaluate for chest pain and mildly elevated troponin 04/27/25 taking over for patient. First day with patient. Patient here for hematuria which is resolving. Also mild troponin likely type 2 NSTEMI demand ischemia from hypertension. Patient here for hypertensive emergency. Cardiology consult to cleared for ruled out type 1 NSTEMI. Cardiology has seen today and is not concerned, likely type 2. Type 1 ruled out. Patient blood pressure remains elevated in his home meds were not started. Need to start home meds and make sure patient has good blood pressure before discharge. We will keep patient here overnight 1 more day. To evaluate. 04/28/2025- blood pressure elevated to 1 50s this a.m.. After given blood pressure medication blood pressure remains stable, patient asymptomatic. Hematuria remains resolved but we will need outpatient follow up with Urology. 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 Patient is stable for discharge, see discharge plan below. Discharge diagnosis: Hypertensive emergency hematuria, resolved NSTEMI type 2, likely demand ischemia, type 1 ruled out Troponinemia, see above Uncontrolled diabetes , with hyperglycemia Generalized weakness Chronic heart failure, likely improved EF penile meatus with smegma due to non-circumcision history, as expected angina, GERD, history TIA, hypertension, hyperlipidemia discharge plan: - Take amlodipine 10 - Continue Jardiance 10 mg - Continue Coreg 12.5 mg twice daily - Continue hydrochlorothiazide 255 mg daily - decrease Entresto to 1 tablet twice daily - Patient needs insulin but has poor understanding of injection. we will need close follow up outpatient with PCP to optimize diabetes. advised strict low carbohydrate diet and medication compliance (Janumet, Jardiance) - Continue other home medications not mentioned above - Close follow up with Urology outpatient to follow up on hematuria - Follow up with PCP 1-2 weeks to discuss discharge follow up. PCP to reassess safety of up-titration of Entresto to t.i.d.. Condition at Discharge: Guarded Final Diagnosis/Problems List Discharge diagnosis: Hypertensive emergency hematuria, resolved NSTEMI type 2, likely demand ischemia, type 1 ruled out Troponinemia, see above Uncontrolled diabetes , with hyperglycemia Generalized weakness Chronic heart failure, likely improved EF penile meatus with smegma due to non-circumcision history, as expected angina, GERD, history TIA, hypertension, hyperlipidemia Discharge Disposition: Home Discharge Instruct/Medications Diet: Consistent carbohydrate, Cardiac 2g Na,low cholest Activity: No Restrictions, As Tolerated Follow Up/Referral: See below Medications: See below Scheduled Amlodipine Besylate (Amlodipine Besylate), 1 TAB PO DAILY, (Reported) Aspirin (Aspirin Ec), 1 TAB PO DAILY, (Reported) Carvedilol (Carvedilol), 1 TAB PO BID, (Reported) Cetirizine HCl (Cetirizine Hydrochloride), 1 TAB PO DAILY, (Reported) Clonidine Hydrochloride (Clonidine Hcl), 0.1 MG PO BID Clopidogrel Bisulfate (Clopidogrel), 1 TAB PO DAILY, (Reported) Cyanocobalamin (Vitamin B12), 1 TAB PO DAILY, (Reported) Empagliflozin (Jardiance), 10 MG PO DAILY Ergocalciferol (Vitamin D), 50,000 UNIT PO QWEEKLY Folic Acid (Folic Acid), 1 MG PO DAILY, (Reported) Hydrochlorothiazide (Hydrochlorothiazide), 1 CAP PO DAILY Hydroxyzine Pamoate (Hydroxyzine Pamoate), 1 CAP PO DAILY, (Reported) Insulin Glargine (Lantus), 15 UNIT SC QPM Multiple Vitamin (Multivitamins), 1 TAB PO DAILY, (Reported) Potassium Citrate (Potassium Citrate), 1 TAB PO DAILY, (Reported) Sacubitril-Valsartan (Entresto 24-26 mg), 1 TAB PO BID Simvastatin (Simvastatin), 1 TAB PO QPM, (Reported) Sitagliptin-Metformin Hcl (Janumet Xr), 1 TAB PO BID, (Reported) Tamsulosin Hcl (Tamsulosin Hcl), 1 CAP PO DAILY, (Reported) Discharge Statement: "Patient was advised to return to the ER or call 911 if any headaches, dizziness, shortness of breath, chest pain, abdominal pain, bleeding, fevers, or worsening of medical condition. Patient was counseled about treatment plan, medications, possible side effects, patientverbalized understanding. All questions were answered to the best of my ability. This discharge took greater then 30 minutes in planning, reviewing documentation, counseling the patient, and discussing with other team members." Date of Service: Apr 28, 2025 Billing Provider: FRANCISCA SUGGS MD Common Visit Codes: 14114-CPG/OBS DISCH DAY >30min FRANCISCA SUGGS MD Apr 28, 2025 14:46
[2025-04-28] MEDS: SACUBITRIL-VALSARTAN 24mg/26mg TAB PO SCH (14:59)
[2025-04-28] MEDS ORDERED: SACUBITRIL-VALSARTAN 24mg/26mg TAB PO SCH (22:00)
--- NOTE | 2025-05-01 15:29 | DVHPN2 ---
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
== END 2025-04-28 16:20 | disposition home or self-care (01) | DRG 199 ==
LOC: ER 05:13 → OVERFLOW 09:03 → TELE-CENTR 18:05
PROVIDERS: ADMIT Student in an Organized Health Care Education/Training Program; ATTEND Student in an Organized Health Care Education/Training Program
DX: I16.1 Hypertensive emergency (principal); I21.A1 Myocardial infarction type 2; I50.9 Heart failure, unspecified; R31.9 Hematuria, unspecified; I11.0 Hypertensive heart disease with heart failure; E11.65 Type 2 diabetes mellitus with hyperglycemia; E78.5 Hyperlipidemia, unspecified; K21.9 Gastro-esophageal reflux disease without esophagitis; Z86.73 Personal history of transient ischemic attack (TIA), and cerebral infarction without residual deficits; Z79.899 Other long term (current) drug therapy; I25.119 Atherosclerotic heart disease of native coronary artery with unspecified angina pectoris
CPT/HCPCS: 36415; 80048; 80053; 81001; 82962; 84484; 85025; 93005; 96374; 99291; 99292; G0378; J1815; J3490